=== PATIENT | male | born 1950 | race Caucasian/White ===

== ENCOUNTER → 2016-06-07 | Outpatient (CLI) | payer OTHER ==
[~2016-06-07] VITALS: Ht 177.8 cm; Wt 81.1 kg
[~2016-06-07] MED LIST: ASPI-435 PO; ASPI81TA28 PO; ENOX1INJ9 SQ; ERGO500011 PO; ERGO500037 PO; LORA-741 PO; LPR25 PO; METO25TA56 PO; OXYC1TAB3 PO; PANT40TA2 PO; POLY335019 PO; POLY335025 PO; PRED20TA PO; PRTI40 IV
[2016-06-07 13:23] VITALS: BP 138/89; PULSE 69; Ht 177.8 cm; Wt 81.1 kg
== END | disposition home or self-care (01) ==
LOC: C.NEUR 11:52
PROVIDERS: ATTEND Allergy & Immunology Allergy
DX: G47.61 Periodic limb movement disorder (principal); G47.33 Obstructive sleep apnea (adult) (pediatric)

== ENCOUNTER → 2016-09-01 | Outpatient (CLI) | payer OTHER ==
[~2016-09-01] MED LIST changes: -ASPI81TA28 PO; -ENOX1INJ9 SQ; -ERGO500011 PO; -PANT40TA2 PO; -POLY335019 PO; +PRT/40 PO; -PRTI40 IV
[2016-09-01 12:51] LABS: BASO % 0.4 %; BASO ABS # 0.04 K/uL (0-0.2); COMPLETE YES; EOS % 1.5 %; HEMATOCRIT 46.6 % (42-52); IG% 0.6 %; LYMPH % 24.1 %; LYMPH ABS # 2.72 K/uL (1.2-3.4); MEAN CELL VOLUME 93.6 fL (80-100); MEAN CORPUSCULAR HEMOGLOBIN 31.3 pg (25-34); MEAN CORPUSCULAR HGB CONC 33.5 g/dl (32-36); MEAN PLATELET VOLUME 11.2 fL (7.4-10.4); MONO % 12.3 %; NEUT % 61.1 %; PLATELET COUNT 172 K/uL (130-400); RED BLOOD COUNT 4.98 M/uL (4.7-6.1)
[2016-09-01 13:00] LABS: ESTIMATED AVERAGE GLUCOSE 169 mg/dl; HA1C FLAG Normal (Normal)
[2016-09-01 13:03] LABS: URINE APPEARANCE CLEAR (CLEAR); URINE BILIRUBIN NEG (NEG); URINE COLOR YELLOW; URINE NITRITE NEG (NEG); URINE SPECIFIC GRAVITY 1.022 (1.000-1.030); UROBILINOGEN NEG (NEG)
[2016-09-01 13:04] LABS: BLOOD UREA NITROGEN 25 mg/dl (7-18); BUN/CREATININE RATIO 13.9 (10-20); CALCIUM 9.1 mg/dl (8.5-10.1); CARBON DIOXIDE 27 mmol/L (21-32); CHLORIDE 106 mmol/L (98-107); GLUCOSE 112 mg/dl (70-99); GLUCOSE,FASTING 112 mg/dl (70-99); POTASSIUM 3.9 mmol/L (3.5-5.1); SODIUM 142 mmol/L (136-145)
[2016-09-01 13:06] LABS: PHOSPHORUS 3.2 mg/dl (2.5-4.9)
[2016-09-01 13:10] LABS: MANUAL MICROSCOPIC REQUIRED? NO; REVIEW REQ? YES
[2016-09-01 13:32] LABS: URINE PROTIEN/CREAT RATIO 0.3 (0-0.2); URINE TOTAL PROTEIN 67.3 mg/dl (0-11.9)
== END | disposition home or self-care (01) ==
LOC: C.LAB1850 10:24
PROVIDERS: ATTEND Internal Medicine Rheumatology
DX: I77.6 Arteritis, unspecified (principal); R73.9 Hyperglycemia, unspecified; I10 Essential (primary) hypertension; E55.9 Vitamin D deficiency, unspecified; N18.3 Chronic kidney disease, stage 3 (moderate); I71.6 Thoracoabdominal aortic aneurysm, without rupture; D89.9 Disorder involving the immune mechanism, unspecified; Z79.52 Long term (current) use of systemic steroids

== ENCOUNTER → 2016-12-13 | Outpatient (CLI) | payer OTHER ==
[~2016-12-13] VITALS: Ht 177.8 cm; Wt 86.6 kg
[2016-12-13 13:23] VITALS: BP 165/85; PULSE 69; Ht 177.8 cm; Wt 86.6 kg
== END | disposition home or self-care (01) ==
LOC: C.NEUR 12:04
PROVIDERS: ATTEND Internal Medicine Pulmonary Disease
DX: G47.61 Periodic limb movement disorder (principal); G47.33 Obstructive sleep apnea (adult) (pediatric); I71.2 Thoracic aortic aneurysm, without rupture

== ENCOUNTER → 2017-01-20 | Outpatient (CLI) | payer OTHER ==
[2017-01-20 12:44] LABS: HEMATOCRIT 49.3 % (42-52); MEAN CELL VOLUME 89.5 fL (80-100); MEAN CORPUSCULAR HEMOGLOBIN 29.6 pg (25-34); MEAN CORPUSCULAR HGB CONC 33.1 g/dl (32-36); MEAN PLATELET VOLUME 10.9 fL (7.4-10.4); PLATELET COUNT 155 K/uL (130-400); RED BLOOD COUNT 5.51 M/uL (4.7-6.1); WHITE BLOOD COUNT 13.17 K/uL (4.8-10.8)
[2017-01-20 12:53] LABS: URINE APPEARANCE CLEAR (CLEAR); URINE BILIRUBIN NEG (NEG); URINE COLOR DK YELLOW; URINE NITRITE NEG (NEG); URINE PH 5.5 (4.5-7.5); URINE SPECIFIC GRAVITY 1.027 (1.000-1.030); UROBILINOGEN NEG (NEG)
[2017-01-20 13:06] LABS: ALT/SGPT 44 U/L (12-78); AST/SGOT 24 U/L (15-37); BLOOD UREA NITROGEN 27 mg/dl (7-18); BUN/CREATININE RATIO 12.5 (10-20); CALCIUM 9.2 mg/dl (8.5-10.1); CARBON DIOXIDE 26 mmol/L (21-32); CHLORIDE 103 mmol/L (98-107); GLUCOSE 263 mg/dl (70-99); POTASSIUM 4.2 mmol/L (3.5-5.1); SODIUM 138 mmol/L (136-145)
[2017-01-20 13:09] LABS: ALKALINE PHOSPHATASE 89 U/L (45-117)
[2017-01-20 13:10] LABS: URINE PROTIEN/CREAT RATIO 0.4 (0-0.2); URINE TOTAL PROTEIN 77.1 mg/dl (0-11.9)
[2017-01-20 13:20] LABS: MANUAL MICROSCOPIC REQUIRED? NO; REVIEW REQ? YES
== END | disposition home or self-care (01) ==
LOC: C.LAB 11:23
PROVIDERS: ATTEND Internal Medicine Nephrology
DX: I12.9 Hypertensive chronic kidney disease with stage 1 through stage 4 chronic kidney disease, or unspecified chronic kidney disease (principal); N20.0 Calculus of kidney; N18.3 Chronic kidney disease, stage 3 (moderate); I77.6 Arteritis, unspecified; E55.9 Vitamin D deficiency, unspecified

== ENCOUNTER → 2017-02-10 | Outpatient (CLI) | payer OTHER ==
[2017-02-10 09:34] LABS: HEMATOCRIT 50.5 % (42-52); MEAN CELL VOLUME 90.2 fL (80-100); MEAN CORPUSCULAR HEMOGLOBIN 29.6 pg (25-34); MEAN CORPUSCULAR HGB CONC 32.9 g/dl (32-36); MEAN PLATELET VOLUME 10.8 fL (7.4-10.4); PLATELET COUNT 157 K/uL (130-400); WHITE BLOOD COUNT 10.32 K/uL (4.8-10.8)
[2017-02-10 09:54] LABS: ALT/SGPT 44 U/L (12-78); AST/SGOT 16 U/L (15-37); BLOOD UREA NITROGEN 29 mg/dl (7-18); BUN/CREATININE RATIO 14.3 (10-20); CALCIUM 9.3 mg/dl (8.5-10.1); CARBON DIOXIDE 32 mmol/L (21-32); CHLORIDE 106 mmol/L (98-107); GLUCOSE 131 mg/dl (70-99); POTASSIUM 4.1 mmol/L (3.5-5.1); SODIUM 140 mmol/L (136-145)
[2017-02-10 10:01] LABS: ALKALINE PHOSPHATASE 73 U/L (45-117); CHOLESTEROL 160 mg/dl (0-200); CHOLESTEROL/HDL RATIO 3.1; HDL CHOLESTEROL 51 mg/dl; LDL CHOLESTEROL CALCULATED 68 mg/dl; TRIGLYCERIDES 207 mg/dl (0-150); VERY LOW DENSITY LIPOPROT CALC 41 mg/dl
== END | disposition home or self-care (01) ==
LOC: C.LAB 07:06
PROVIDERS: ATTEND Internal Medicine Nephrology
DX: I12.9 Hypertensive chronic kidney disease with stage 1 through stage 4 chronic kidney disease, or unspecified chronic kidney disease (principal); E78.5 Hyperlipidemia, unspecified; I71.2 Thoracic aortic aneurysm, without rupture; N18.3 Chronic kidney disease, stage 3 (moderate); I77.6 Arteritis, unspecified

== ENCOUNTER → 2017-06-02 | Outpatient (CLI) | payer OTHER ==
[~2017-06-02] MED LIST changes: -ASPI-435 PO; +ASPI81TA28 PO; +ATOR-54 PO; +ERGO500011 PO; -ERGO500037 PO; +ESCI10TA17 PO; -LPR25 PO; +METO50TA16 PO; -OXYC1TAB3 PO; +POLY335019 PO; -POLY335025 PO; -PRED20TA PO; +PRLSR20 PO; -PRT/40 PO; +REGADENOSON 0.4 MG/5 ML SYR ONE; +RTXI100 IV
--- NOTE | 2017-06-02 19:28 | Myocardial Perfusion Study ---
Myocardial Perfusion Study Rpt Myocardial Perfusion Study Rpt Date of Service 06/02/2017 Myocardial Perfusion Study Rpt Procedure: 1. Myocardial perfusion study performed in multiple views/images 2. Lexiscan pharmacologic stress ECG Indications: 1. Dyspnea with exertion 2. Prior myocardial infarction Consent: Informed written consent was obtained prior to the procedure. Ordering physician: Dr. Levy Procedural details: For the stress portion of the study, Lexiscan 0.4 mg was intravenously administered followed by a saline flush. This was followed by 32.8 mCi of technetium 99m Cardiolite, injected at 11:20 a.m. on 06/02/2017. 30 minutes following the injection, imaging of the heart was performed in multiple projections. For the rest portion of the study, 11 mCi technetium 99m Cardiolite was injected intravenously at 9:30 a.m. on 06/02/2017. 1 hour following the injection, imaging of the heart was performed in the same projections. Lexiscan stress ECG: Resting ECG demonstrated: Sinus bradycardia at 53 bpm. Septal infarct. Maximum heart rate: 78 bpm Resting blood pressure: 164/89 mmHg Maximum blood pressure: 167/93 mmHg Maximal, age-predicted heart rate: 50 % Significant ST changes: None Arrhythmia: None Symptoms: Shortness of breath Findings: Rotating raw imaging demonstrated no significant lung uptake. There is no significant motion artifact. Heart size appeared normal. Myocardial perfusion demonstrated a small area of moderately to severely reduced uptake involving the base to mid lateral wall and base to mid inferolateral wall segments. There was minimal reversibility at the basal inferolateral wall but more significant reversibility in the mid segment and base to mid lateral. This suggests small basal inferolateral infarct with ischemia of the mid inferolateral and base to mid lateral wall segments. Ejection fraction: 45 % Wall motion: Stress wall motion suggests hypo to akinesis involving the base to mid lateral and base to mid inferolateral wall segments. Otherwise, normal wall motion. No significant transient ischemic dilation. Impression: 1. Abnormal myocardial perfusion study suggesting small basal inferolateral infarct with lokesh-infarct ischemia and ischemia involving the mid inferolateral wall segment and base to mid lateral (circumflex territory). 2. Mildly reduced LV systolic function. EF 45%. 3. Stress wall motion suggests hypo to akinesis of the base to mid lateral and inferolateral wall segments. 4. Lexiscan induced shortness of breath. 5. Nondiagnostic Lexiscan ECG. 6. Mr. and Mrs. Rufino were called personally and notified of the above findings. He denies angina or exertional dyspnea. Recommend continuation of medical therapy. Call immediately for symptoms concerning for ischemic heart disease.
== END | disposition home or self-care (01) ==
LOC: C.NUCL 09:05
PROVIDERS: ATTEND Internal Medicine Cardiovascular Disease
DX: I71.2 Thoracic aortic aneurysm, without rupture (principal); R06.09 Other forms of dyspnea; E78.5 Hyperlipidemia, unspecified; I10 Essential (primary) hypertension; I25.2 Old myocardial infarction

== ENCOUNTER → 2017-06-13 | Outpatient (CLI) | payer OTHER ==
[~2017-06-13] VITALS: Ht 177.8 cm; Wt 92.3 kg
[~2017-06-13] MED LIST changes: -ATOR-54 PO; -ESCI10TA17 PO; -METO50TA16 PO; -PRLSR20 PO; -REGADENOSON 0.4 MG/5 ML SYR ONE; -RTXI100 IV
[2017-06-13 13:50] VITALS: BP 134/76; PULSE 56; Ht 177.8 cm; Wt 92.3 kg
== END | disposition home or self-care (01) ==
LOC: C.NEUR 11:55
PROVIDERS: ATTEND Internal Medicine Pulmonary Disease
DX: G47.61 Periodic limb movement disorder (principal); I77.6 Arteritis, unspecified; G47.33 Obstructive sleep apnea (adult) (pediatric)

== ENCOUNTER → 2017-06-22 | Outpatient (CLI) | payer OTHER ==
[2017-06-22 10:14] LABS: HEMATOCRIT 47.9 % (42-52); HEMOGLOBIN 16.2 g/dL (14.0-18.0); MEAN CELL VOLUME 88.7 fL (80-100); MEAN CORPUSCULAR HGB CONC 33.8 g/dl (32-36); MEAN PLATELET VOLUME 11.1 fL (7.4-10.4); PLATELET COUNT 159 K/uL (130-400); RED CELL DISTRIBUTION WIDTH CV 14.9 % (11.5-14.5); RED CELL DISTRIBUTION WIDTH SD 48.2 fL (36.4-46.3); WHITE BLOOD COUNT 10.54 K/uL (4.8-10.8)
[2017-06-22 10:45] LABS: ALBUMIN 3.7 gm/dl (3.4-5.0); BLOOD UREA NITROGEN 30 mg/dl (7-18); CALCIUM 9.1 mg/dl (8.5-10.1); CARBON DIOXIDE 25 mmol/L (21-32); CREATININE 1.87 mg/dl (0.60-1.40); GLUCOSE 103 mg/dl (70-99); SODIUM 140 mmol/L (136-145)
[2017-06-22 10:46] LABS: PHOSPHORUS 3.6 mg/dl (2.5-4.9)
== END | disposition home or self-care (01) ==
LOC: C.LAB1850 09:06
PROVIDERS: ATTEND Internal Medicine Nephrology
DX: I12.9 Hypertensive chronic kidney disease with stage 1 through stage 4 chronic kidney disease, or unspecified chronic kidney disease (principal); N18.3 Chronic kidney disease, stage 3 (moderate); E55.9 Vitamin D deficiency, unspecified; I77.6 Arteritis, unspecified

== ENCOUNTER → 2017-08-02 | Day surgery (SDC) | payer OTHER ==
[2017-07-31 08:37] VITALS: Ht 177.8 cm; Wt 92.3 kg
[~2017-08-02] VITALS: Ht 177.8 cm; Wt 92.3 kg
[~2017-08-02] MED LIST changes: +500ML BSS 0.3ML EPI 1:1000PF IRRIG ONE; +ACETAMINOPHEN 325 MG TAB PO PRN; +AMVISC PLUS 0.8ML SYRINGE INT OCU ONE; +ATOR-54 PO; +ATROPINE SULFATE 0.1 MG/ML 5ML SYR IV PRN; +BSS FLUSH ONE; +ENDOCOAT 0.85ML SYRINGE INT OCU ONE; +ESCI10TA17 PO; +EpHEDrine SULFATE INJ 50 MG/ML AMP IV PRN; +EpINEphrine INJ 1MG/ML AMP 1 MG/ML AMP ONE; +LACTATED RINGER'S 1000ML 500 ML IV SCH; +LIDOCAINE 4% OP SOLN DROP CHARGE ONE; +LIDOCAINE 4% OP SOLN DROP CHARGE OPR SCH; +LIDOCAINE HCL 1% MPF 2 ML VIAL ONE; -LORA-741 PO; -METO25TA56 PO; +METO50TA16 PO; +MIDAZOLAM HCL 1 MG/ML 2ML VIAL ONE; +MIX: 4ML BSS 1ML EPI 1:1000 PF TOP ONE; +MOXIFLOXACIN OPH SOLN PER DROP CHARGE ONE; +NURSING VERBAL MED ORDER ONE; +PHENYLEPHRINE HCL 10% OP SOLN PER DROP CHARGE OPR SCH; -POLY335019 PO; +POVIDONE-IODINE OP SOLN 30 ML BTL ONE; +PRLSR20 PO; +PROPARACAINE 0.5% OP SOLN PER DROP CHARGE OPR SCH; +RTXI100 IV; +TOBRAMYCIN/DEXAMETHASONE OPH OINT PER APPLN CHARGE ONE
[2017-08-02] MEDS: TROPICAMIDE 1% OP SOLN PER DROP CHARGE OPR SCH ×3 (09:45→09:55)
[2017-08-02] MEDS: CYCLOPENTOLATE HCL 1% OP SOLN PER DROP CHARGE OPR SCH ×3 (09:46→09:56)
--- NOTE | 2017-08-02 09:46 | History & Physical Bridge - SC ---
H&P Re-Evaluation Bridge Note: I have examined the patient, reviewed the History & Physical and in the interval since the performance of the History & Physical I have noted the following changes of clinical significance: No changes noted
[2017-08-02] MEDS: MOXIFLOXACIN OPH SOLN PER DROP CHARGE OPR SCH ×3 (09:47→09:57)
[2017-08-02] MEDS: PHENYLEPHRINE HCL 10% OP SOLN PER DROP CHARGE OPR SCH ×2 (09:49→09:54)
--- NOTE | 2017-08-02 10:47 | [facility] Post Operative Brief Note ---
Immediate Operative Summary Operative Date Aug 02, 2017. Pre-Operative Diagnosis Right Eye Cataract Post-Operative Diagnosis Same Procedure(s) Performed Right Eye Cataract Phacoemulsification With Intraocular Lens Implant Surgeon Dr. Cisneros Retail Performance Coach Surgeon(s) None Estimated Blood Loss None Findings Consistent with Post-Op Diagnosis Specimens None Anesthesia Type MAC Complication(s) none Disposition Accompanied Pt To Recovery: no Disposition:
--- NOTE | 2017-08-02 10:48 | [facility] Operative Report ---
Operative Report Date of Service Aug 02, 2017. Operative Report DATE OF OPERATION: 08/02/17 PREOPERATIVE DIAGNOSIS: Senile nuclear cataract, right eye POSTOPERATIVE DIAGNOSIS: Senile nuclear cataract, right eye PROCEDURE PERFORMED: Phacoemulsification with intraocular lens implantation, right eye SURGEON: Dr. Arash Cisneros ANESTHESIA: Topical with 1% intracameral lidocaine and monitored anesthesia care COMPLICATIONS: None DESCRIPTION OF PROCEDURE: After positively identifying the patient both verbally and by wristband in the preoperative area, the right eye was marked as the operative eye. The patient was then brought back to the operating room by the anesthesia and nursing staff where they were given a drop of Lidocaine and betadine into the operative eye. They were then sterilely prepped and draped in the standard fashion typical for ophthalmic surgery. Steri-strips were placed along the upper eyelids to keep the lashes back, and a lid speculum was placed into the operative eye. At this point, a documented time out was performed with members of the ophthalmology, nursing, and anesthesia staffs all agreeing upon the correct patient, correct location for surgery, correct procedure, and correct type and power of intraocular lens to be implanted. The microscope was then swung into position. First, a paracentesis wound was made using a sideport blade. Then, in sequence, 1% preservative-free lidocaine followed by Endocoat viscoelastic was injected into the anterior chamber. Next , the main incision was made with a keratome blade in triplanar fashion. A sharp cystotome was introduced into the eye and used to create a tear in the anterior capsule, which was directed into a continuous curvilinear capsulorrhexis using Utrata forceps. Hydrodissection was then performed with BSS on a flat-tip cannula. Next, the phacoemulsification handpiece was introduced into the eye and used to remove the nucleus in a [id number] fashion. This was done without complication and then the irrigation-aspiration handpiece was introduced into the eye and used to remove all remaining cortical and epinuclear material. Amvisc was then injected into the anterior chamber as well as into the capsular bag and using the lens injector system, an MX60 16.0 D lens, serial number [id number], and expiration date 04/2018 was injected into the capsular bag and rotated into the correct position. Next, the irrigation- aspiration handpiece was used to remove all remaining Amvisc. BSS was used to hydrate the main wound, and then BSS was injected into the paracentesis site to reach physiologic pressure and then the main wound was checked and found to be watertight. The patient was given drops of Vigamox and Tobradex ointment into the operative eye, and then the surrounding area was cleaned and dried. A clear plastic shield was placed over the eye and the patient was then sat up and taken from the operating room by the anesthesia staff having tolerated the procedure well and suffering no complications. DISPOSITION: The patient was returned to the recovery room in stable condition. I attest to the content of the Intraoperative Record and any orders documented therein. Any exceptions are noted below.
--- NOTE | 2017-08-02 10:49 | Discharge Instructions-SurgCtr ---
Discharge Instructions Date of Service Aug 02, 2017. Visit Reason for Visit: Cataract Right Eye Discharge Discharge Diagnosis / Problem: right cataract Discharge Goals Goal(s): Decrease discomfort, Increase independence Activity Recommendations Activity Limitations: as noted below Anesthesia . Post Anesthesia Instructions: If you have had General Anesthesia or IV Sedation: * Do not drive today. * Resume driving when surgeon permits. * Do not make important decisions or sign legal documents today. * Call surgeon for: 1. Temperature elevations greater than 101 degrees F. 2. Uncontrollable pain. 3. Excessive bleeding. 4. Persistent nausea and vomiting. 5. Medication intolerance (nausea, vomiting or rash). * For nausea and vomiting use only clear liquids such as: tea, soda, bouillon until nausea subsides, then gradually increase diet as tolerated. * If you have any concerns or questions, call your surgeon's office. If physician is unavailable and it is an emergency, call 911 or go to the nearest emergency room. . Instructions / Follow-Up Instructions / Follow-Up ACTIVITY RECOMMENDATIONS: * Light activities. * You may walk outside, read, watch television. * You may notice redness on the white part of the eye and some blurry vision - this is normal. MEDICATIONS: Resume previous medications unless instructed otherwise by your surgeon. Start all eye drops at 1 pm today: * Eye drops (today): Prednisone - one drop in operative eye every 2 hours while awake Ofloxacin - one drop in operative eye every 2 hours while awake Prolensa - one drop in operative eye daily SPECIAL CARE INSTRUCTIONS: * Tape plastic shield over eye to sleep at night. Call your doctor at with any concerns or problems. FOLLOW UP VISIT: Follow-up with Dr Cisneros at [facility] as scheduled. Diet Recommendations Home Diet: no limitations Procedures Procedures Performed: Right Eye Cataract Phacoemulsification With Intraocular Lens Implant Pending Studies Studies pending at discharge: no Medical Emergencies . Who to Call and When: Medical Emergencies: If at any time you feel your situation is an emergency, please call 911 immediately. . Non-Emergent Contact Non-Emergency issues call your: Surgeon . . "Provider Documentation" section prepared by Arash Cisneros. .
[2017-08-02 10:50] VITALS: TEMP 36.2
--- NOTE | 2017-08-02 11:19 | Anesthesia Progress Nt - [facility] ---
Anesthesia Post Op Note Date & Time Aug 02, 2017 at 11:18 Vital Signs Pain Intensity: 0 Vital Signs Past 12 Hours Date Time Temp Pulse Resp B/P (MAP) Pulse Ox O2 Delivery O2 Flow Rate FiO2 08/02/17 10:50 36.2 66 16 160/85 (110) 94 Room Air 08/02/17 09:35 36.5 61 18 124/73 (90) 93 Room Air Notes Mental Status: alert / awake / arousable, participated in evaluation Pt Amnestic to Procedure: Yes Nausea / Vomiting: adequately controlled Pain: adequately controlled Airway Patency, RR, SpO2: stable & adequate BP & HR: stable & adequate Hydration State: stable & adequate Anesthetic Complications: no major complications apparent
[2017-08-02 11:22] VITALS: BP 155/87; PULSE 56; O2SAT 95
== END | disposition home or self-care (01) ==
LOC: X.SURG 09:11
PROVIDERS: ATTEND Ophthalmology
DX: H25.11 Age-related nuclear cataract, right eye (principal); J44.9 Chronic obstructive pulmonary disease, unspecified; G47.33 Obstructive sleep apnea (adult) (pediatric); I25.2 Old myocardial infarction; I25.10 Atherosclerotic heart disease of native coronary artery without angina pectoris; K21.9 Gastro-esophageal reflux disease without esophagitis; I12.9 Hypertensive chronic kidney disease with stage 1 through stage 4 chronic kidney disease, or unspecified chronic kidney disease; N18.9 Chronic kidney disease, unspecified; E66.9 Obesity, unspecified; E78.00 Pure hypercholesterolemia, unspecified; Z85.828 Personal history of other malignant neoplasm of skin; Z86.73 Personal history of transient ischemic attack (TIA), and cerebral infarction without residual deficits

== ENCOUNTER → 2017-08-16 | Day surgery (SDC) | payer OTHER ==
[2017-08-11 10:55] VITALS: Ht 177.8 cm; Wt 92.3 kg
[~2017-08-16] VITALS: Ht 177.8 cm; Wt 92.3 kg
[~2017-08-16] MED LIST changes: -ATROPINE SULFATE 0.1 MG/ML 5ML SYR IV PRN; -EpHEDrine SULFATE INJ 50 MG/ML AMP IV PRN; +FENTANYL CITRATE INJ 50 MCG/1 ML 2 ML VIAL ONE; +LIDOCAINE 4% OP SOLN DROP CHARGE OPL SCH; -LIDOCAINE 4% OP SOLN DROP CHARGE OPR SCH; -NURSING VERBAL MED ORDER ONE; -PHENYLEPHRINE HCL 10% OP SOLN PER DROP CHARGE OPR SCH; +PROPARACAINE 0.5% OP SOLN PER DROP CHARGE OPL SCH; -PROPARACAINE 0.5% OP SOLN PER DROP CHARGE OPR SCH
[2017-08-16] MEDS: PHENYLEPHRINE HCL 2.5% OP SOLN PER DROP CHARGE OPL SCH ×3 (08:47→08:57)
[2017-08-16] MEDS: TROPICAMIDE 1% OP SOLN PER DROP CHARGE OPL SCH ×3 (08:48→08:58)
[2017-08-16] MEDS: CYCLOPENTOLATE HCL 1% OP SOLN PER DROP CHARGE OPL SCH ×3 (08:49→08:59)
[2017-08-16] MEDS: MOXIFLOXACIN OPH SOLN PER DROP CHARGE OPL SCH ×3 (08:50→09:00)
--- NOTE | 2017-08-16 09:58 | [facility] Post Operative Brief Note ---
Immediate Operative Summary Operative Date Aug 16, 2017. Pre-Operative Diagnosis Left Eye Cataract Post-Operative Diagnosis same Procedure(s) Performed Left Cataract Phacoemulsification With Intraocular Lens Implant Surgeon Dr. Julieth Cisneros Nanotechnology Engineering Technologist Surgeon(s) 0 Estimated Blood Loss 0 Findings Consistent with Post-Op Diagnosis Specimens none Anesthesia Type MAC Complication(s) none Disposition Accompanied Pt To Recovery: no Disposition:
--- NOTE | 2017-08-16 09:59 | [facility] Operative Report ---
Operative Report Date of Service Aug 16, 2017. Operative Report DATE OF OPERATION: 08/16/17 PREOPERATIVE DIAGNOSIS: Senile nuclear cataract, left eye POSTOPERATIVE DIAGNOSIS: Senile nuclear cataract, left eye PROCEDURE PERFORMED: Phacoemulsification with intraocular lens implantation, left eye SURGEON: Dr. Arash Cisneros ANESTHESIA: Topical with 1% intracameral lidocaine and monitored anesthesia care COMPLICATIONS: None DESCRIPTION OF PROCEDURE: After positively identifying the patient both verbally and by wristband in the preoperative area, the left eye was marked as the operative eye. The patient was then brought back to the operating room by the anesthesia and nursing staff where they were given a drop of Lidocaine and betadine into the operative eye. They were then sterilely prepped and draped in the standard fashion typical for ophthalmic surgery. Steri-strips were placed along the upper eyelids to keep the lashes back, and a lid speculum was placed into the operative eye. At this point, a documented time out was performed with members of the ophthalmology, nursing, and anesthesia staffs all agreeing upon the correct patient, correct location for surgery, correct procedure, and correct type and power of intraocular lens to be implanted. The microscope was then swung into position. First, a paracentesis wound was made using a sideport blade. Then, in sequence, 1% preservative-free lidocaine followed by Endocoat viscoelastic was injected into the anterior chamber. Next , the main incision was made with a keratome blade in triplanar fashion. A sharp cystotome was introduced into the eye and used to create a tear in the anterior capsule, which was directed into a continuous curvilinear capsulorrhexis using Utrata forceps. Hydrodissection was then performed with BSS on a flat-tip cannula. Next, the phacoemulsification handpiece was introduced into the eye and used to remove the nucleus in a [id number] fashion. This was done without complication and then the irrigation-aspiration handpiece was introduced into the eye and used to remove all remaining cortical and epinuclear material. Amvisc was then injected into the anterior chamber as well as into the capsular bag and using the lens injector system, an MX60 16.0 D lens, serial number [id number], and expiration date 12/2017 was injected into the capsular bag and rotated into the correct position. Next, the irrigation- aspiration handpiece was used to remove all remaining Amvisc. BSS was used to hydrate the main wound, and then BSS was injected into the paracentesis site to reach physiologic pressure and then the main wound was checked and found to be watertight. The patient was given drops of Vigamox and Tobradex ointment into the operative eye, and then the surrounding area was cleaned and dried. A clear plastic shield was placed over the eye and the patient was then sat up and taken from the operating room by the anesthesia staff having tolerated the procedure well and suffering no complications. DISPOSITION: The patient was returned to the recovery room in stable condition. I attest to the content of the Intraoperative Record and any orders documented therein. Any exceptions are noted below.
[2017-08-16 10:00] VITALS: TEMP 36.3
--- NOTE | 2017-08-16 10:00 | Discharge Instructions-SurgCtr ---
Discharge Instructions Date of Service Aug 16, 2017. Visit Reason for Visit: Cataract Left Eye Discharge Discharge Diagnosis / Problem: left cataract Discharge Goals Goal(s): Decrease discomfort, Improve function Activity Recommendations Activity Limitations: as noted below Anesthesia . Post Anesthesia Instructions: If you have had General Anesthesia or IV Sedation: * Do not drive today. * Resume driving when surgeon permits. * Do not make important decisions or sign legal documents today. * Call surgeon for: 1. Temperature elevations greater than 101 degrees F. 2. Uncontrollable pain. 3. Excessive bleeding. 4. Persistent nausea and vomiting. 5. Medication intolerance (nausea, vomiting or rash). * For nausea and vomiting use only clear liquids such as: tea, soda, bouillon until nausea subsides, then gradually increase diet as tolerated. * If you have any concerns or questions, call your surgeon's office. If physician is unavailable and it is an emergency, call 911 or go to the nearest emergency room. . Instructions / Follow-Up Instructions / Follow-Up ACTIVITY RECOMMENDATIONS: * Light activities. * You may walk outside, read, watch television. * You may notice redness on the white part of the eye and some blurry vision - this is normal. MEDICATIONS: Resume previous medications unless instructed otherwise by your surgeon. Start all eye drops at 12 pm today: * Eye drops (today): Prednisone - one drop in operative eye every 2 hours while awake Ofloxacin - one drop in operative eye every 2 hours while awake Prolensa - one drop in operative eye daily SPECIAL CARE INSTRUCTIONS: * Tape plastic shield over eye to sleep at night. Call your doctor at with any concerns or problems. FOLLOW UP VISIT: Follow-up with Dr Cisneros at [facility] as scheduled. Diet Recommendations Home Diet: no limitations Procedures Procedures Performed: Left Cataract Phacoemulsification With Intraocular Lens Implant Pending Studies Studies pending at discharge: no Medical Emergencies . Who to Call and When: Medical Emergencies: If at any time you feel your situation is an emergency, please call 911 immediately. . Non-Emergent Contact Non-Emergency issues call your: Surgeon . . "Provider Documentation" section prepared by Arash Cisneros. .
[2017-08-16 10:19] VITALS: BP 159/94; PULSE 63; O2SAT 95
--- NOTE | 2017-08-16 10:29 | Anesthesia Progress Nt - [facility] ---
Anesthesia Post Op Note Date & Time Aug 16, 2017 at 10:29 Vital Signs Pain Intensity: 0 Vital Signs Past 12 Hours Date Time Temp Pulse Resp B/P (MAP) Pulse Ox O2 Delivery O2 Flow Rate FiO2 08/16/17 10:19 63 16 159/94 (115) 95 Room Air 08/16/17 10:00 36.3 67 16 173/81 (111) 94 Room Air 08/16/17 08:36 36.6 72 16 142/78 (99) 94 Room Air Notes Mental Status: alert / awake / arousable, participated in evaluation Pt Amnestic to Procedure: Yes Nausea / Vomiting: adequately controlled Pain: adequately controlled Airway Patency, RR, SpO2: stable & adequate BP & HR: stable & adequate Hydration State: stable & adequate Anesthetic Complications: no major complications apparent
== END | disposition home or self-care (01) ==
LOC: X.SURG 08:16
PROVIDERS: ATTEND Ophthalmology
DX: H25.12 Age-related nuclear cataract, left eye (principal); I51.9 Heart disease, unspecified; I10 Essential (primary) hypertension; N28.9 Disorder of kidney and ureter, unspecified; E78.00 Pure hypercholesterolemia, unspecified; K21.9 Gastro-esophageal reflux disease without esophagitis; Z85.828 Personal history of other malignant neoplasm of skin; Z86.73 Personal history of transient ischemic attack (TIA), and cerebral infarction without residual deficits; Z79.82 Long term (current) use of aspirin; Z79.899 Other long term (current) drug therapy

== ENCOUNTER → 2017-10-11 | Outpatient (CLI) | payer OTHER ==
[~2017-10-11] MED LIST changes: -500ML BSS 0.3ML EPI 1:1000PF IRRIG ONE; -ACETAMINOPHEN 325 MG TAB PO PRN; -AMVISC PLUS 0.8ML SYRINGE INT OCU ONE; -BSS FLUSH ONE; -ENDOCOAT 0.85ML SYRINGE INT OCU ONE; -EpINEphrine INJ 1MG/ML AMP 1 MG/ML AMP ONE; -FENTANYL CITRATE INJ 50 MCG/1 ML 2 ML VIAL ONE; -LACTATED RINGER'S 1000ML 500 ML IV SCH; -LIDOCAINE 4% OP SOLN DROP CHARGE ONE; -LIDOCAINE 4% OP SOLN DROP CHARGE OPL SCH; -LIDOCAINE HCL 1% MPF 2 ML VIAL ONE; -MIDAZOLAM HCL 1 MG/ML 2ML VIAL ONE; -MIX: 4ML BSS 1ML EPI 1:1000 PF TOP ONE; -MOXIFLOXACIN OPH SOLN PER DROP CHARGE ONE; -POVIDONE-IODINE OP SOLN 30 ML BTL ONE; -PROPARACAINE 0.5% OP SOLN PER DROP CHARGE OPL SCH; -TOBRAMYCIN/DEXAMETHASONE OPH OINT PER APPLN CHARGE ONE
[2017-10-11 09:38] LABS: MEAN CELL VOLUME 87.6 fL (80-100); MEAN CORPUSCULAR HEMOGLOBIN 29.2 pg (25-34); MEAN CORPUSCULAR HGB CONC 33.3 g/dl (32-36); MEAN PLATELET VOLUME 10.6 fL (7.4-10.4); PLATELET COUNT 147 K/uL (130-400); RED CELL DISTRIBUTION WIDTH CV 14.7 % (11.5-14.5); RED CELL DISTRIBUTION WIDTH SD 46.7 fL (36.4-46.3); WHITE BLOOD COUNT 7.52 K/uL (4.8-10.8)
[2017-10-11 09:59] LABS: ALBUMIN 3.8 gm/dl (3.4-5.0); ALT/SGPT 28 U/L (12-78); AST/SGOT 17 U/L (15-37); BLOOD UREA NITROGEN 18 mg/dl (7-18); CALCIUM 8.9 mg/dl (8.5-10.1); CARBON DIOXIDE 28 mmol/L (21-32); CREATININE 1.98 mg/dl (0.60-1.40); GLUCOSE 127 mg/dl (70-99); POTASSIUM 4.7 mmol/L (3.5-5.1); SODIUM 138 mmol/L (136-145)
[2017-10-11 10:00] LABS: ALKALINE PHOSPHATASE 95 U/L (45-117); TOTAL PROTEIN 7.1 gm/dl (6.4-8.2)
== END | disposition home or self-care (01) ==
LOC: C.LAB 07:31
PROVIDERS: ATTEND Internal Medicine Nephrology
DX: I12.9 Hypertensive chronic kidney disease with stage 1 through stage 4 chronic kidney disease, or unspecified chronic kidney disease (principal); E55.9 Vitamin D deficiency, unspecified; N18.3 Chronic kidney disease, stage 3 (moderate); I77.6 Arteritis, unspecified

== ENCOUNTER 2020-01-19 15:03 | Inpatient (IN) ==
[2020-01-19] MEDS ORDERED: ACETAMINOPHEN 500 MG TAB PO STA (15:31)
[2020-01-19] MEDS ORDERED: LEVOFLOXACIN/D5W 750 MG/150 ML BAG IV STA (15:31)
[2020-01-19] MEDS ORDERED: cefTRIAXone SODIUM 1,000 MG/50 ML BAG IV STA (15:31)
[2020-01-19] MEDS ORDERED: SODIUM CHLORIDE 0.9% 1000ML 2,000 ML IV ONE (15:31)
--- NOTE | 2020-01-19 15:37 | Emergency Department Note ---
Impression & Plan Sepsis, Transaminitis, Ascending cholangitis ED Provider Note NAME: MAULIK SHAY AGE: 69 SEX: M : 1950 ARRIVES VIA: Walk-In INFORMANT: Patient, ED PROVIDER(S): Kg Wylie DO CHIEF COMPLAINT: Fever HPI: Patient is a 69-year-old male who presents the ER for fever. Majority of history obtained from . Patient started having abdominal pain yesterday in the epigastric region associated with dry heaving. Recently diagnosed with esophageal diverticulum as has been having trouble swallowing. Fever started today. Shortly thereafter he started to have some confusion. He has had diffuse body shaking/chills. He denies any cough or shortness of breath. Denies any dysuria urgency or frequency. Denies any headache or chest pain. No other ex acerbating or remitting factors. ROS: See above HPI for pertinent positives & negatives. A total of 10 systems reviewed and were otherwise negative. PAST MEDICAL HISTORY:See Below PAST SURGICAL HISTORY:See Below FAMILY HISTORY:See Below SOCIAL HISTORY:See Below HOME MEDICATIONS:See Below ALLERGIES:See Below VITALS:See Below PHYSICAL EXAMINATION: GENERAL: Sitting up in bed, alert, well appearing, well nourished, no distress, non-toxic EYE EXAM: normal conjunctiva. PERRL and EOM's grossly intact. OROPHARYNX: no exudate, no erythema, lips, buccal mucosa, and tongue normal and mucous membranes are moist NECK: supple, no nuchal rigidity, no adenopathy, non-tender LUNGS: Clear to auscultation. Normal chest wall mechanics HEART: no murmurs, S1 normal and S2 normal ABDOMEN: abdomen soft, non-tender, normo-active bowel sounds, no masses, no rebound or guarding. BACK: Back is symmetrical on inspection and there is no deformity, no midline tenderness, no CVA tenderness. SKIN: no rashes and no bruising UPPER EXTREMITIES: upper extremities are grossly normal. LOWER EXTREMITIES: No pitting edema. NEURO EXAM: Oriented to person and place but not year or month, cranial nerves II-XII grossly intact, normal speech, no gross weakness of arms, no gross weakness of legs. MEDICAL DECISION MAKING: Patient is A 69-year-old male who presents the ER confused febrile and tachycardic. IV was established blood work was obtained. He was having dry heaving and epigastric abdominal pain. was concerned for possible aspiration pneumonia. Labs were obtained and he was given broad-spectrum antibiotics including IV Rocephin and Levaquin as I also agreed that this may be secondary to an aspiration. Chest x-ray was unremarkable. CT abdomen pelvis showed no acute pathology. LFTs were significantly elevated as well as a bilirubin of 5. CBC showed a leukocytosis of 15 and hemoglobin of 17 which I favor secondary to dehydration. INR was unremarkable. Creatinine was consistent with previous at 1.9. Troponin was negative. UA was without infection. After the results of the blood work he was given IV Zosyn. Discussed with [facility] gastroenterology due to the elevated bilirubin and transaminitis. Concern for a sending cholangitis. Patient is tender in the e pigastric region. Discussed with the hospitalist. Patient was admitted and will likely go for ERCP tomorrow following GI evaluation. Triage Nursing notes reviewed. Prior medical records reviewed Vital Signs: reviewed and remarkable for febrile and tachy Differential diagnosis: Differential diagnosis includes etiologies such as sepsis, UTI, pneumonia, metabolic, electrolyte abnormalities, cardiac sources, intracerebral event, toxicologic, neurological, as well as others were entertained. ER treatment provided: See below Diagnostics interpreted by me: ECG: Sinus tachycardia rate of 105 Left axis No PVCs T wave flattening in aVL Normal QTC Cardiac Monitoring: An order was placed for continuous cardiac monitoring. The monitor shows a rate of 108 with Sinus rhythm. Laboratory studies: As stated above and show below. Imaging studies: CT abdomen pelvis shows no acute pathology. Portable AP upright 1 view of the chest shows no focal infiltrate Consultation(s): [facility] Discussed with [facility] hospitalist for admission ED COURSE: Procedures: none Critical Care: I have personally spent 32 minutes of critical care time in the direct management of this patient. This includes bedside care, interpretation of diagnostic studies, and testing, discussion with consultants, patient, and family members, and other required patient management activities. This 32 minutes is in excess of all separately billable procedures. 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 Maulik Jerome 02/03/16 " Aneurysm of thoracic aorta Anxiety Basal cell carcinoma (BCC) CAD (coronary artery disease) Chronic kidney disease, stage III (moderate) Dyslipidemia GERD (gastroesophageal reflux disease) History of empyema of pleura History of TIA (transient ischemic attack) Hypertension IgG4 related disease Nephrolithiasis Obstructive sleep apnea Intolerant to CPAP Old myocardial infarct Periodic limb movement disorder Spinal stenosis T2DM (type 2 diabetes mellitus) Vasculitis involving renal artery Vitamin D deficiency Surgical History (Updated 01/19/20 @ 18:52 by Suzan Figueroa PA-C) History of AAA (abdominal aortic aneurysm) repair s/p TEVAR 2016 for 8 cm thoracic aneurysm after prior open repair of 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 History of cholecystectomy 12/2018 History of colostomy History of colostomy reversal ileostomy reversal 10/2018 History of lung surgery Secondary to empyema History of partial colectomy "L hemicolectomy with colostomy 2* mesenteric ischemia s/p vascular surgery 02/03/16" History of thoracic aortic aneurysm repair S/P Mohs surgery for basal cell carcinoma Family History Father Diabetes Other Colorectal cancer Obstructive sleep apnea Social History Smoking Status: Former smoker Tobacco Type: Cigarettes Second Hand Exposure: No; Do You Dip or Chew Tobacco: No; Tobacco Cessation Education Requested by Patient: No Hx Alcohol Use: No Hx Substance Use: No Preferred Language: Welsh Communication Ability: Effective Beliefs That Will Affect Care: None marital status: Current Living Situation: Spouse current occupational status: retired Feels Safe at Home: Yes Safety Concerns: Feels Safe At This Time Allergies Allergies Allergy/AdvReac Type Severity Reaction Status Date / Time tramadol AdvReac Unknown HIVES Verified 01/19/20 16:35 Home Meds Home Medications Medication Instructions Recorded Confirmed acetaminophen 500 mg tablet 500 - 1,000 mg PO Q4H PRN 03/05/19 01/19/20 aspirin 81 mg tablet,delayed 81 mg PO DAILY tab 03/05/19 01/19/20 release hydroxyzine HCl 10 mg tablet 10 mg PO ONCE PRN tab 07/17/19 01/19/20 docusate sodium 100 mg PO DAILY PRN 01/19/20 01/19/20 omeprazole 20 mg PO DAILY 01/19/20 01/19/20 oxycodone 5 mg PO BID PRN 01/19/20 01/19/20 Previous Rx's Medication Instructions Recorded ergocalciferol (vitamin D2) 1,250 50,000 units PO MONTHLY #12 cap 05/06/19 mcg (50,000 unit) capsule clonazepam 1 mg tablet 1 mg PO HS PRN #30 tab 06/18/19 metoprolol succinate 25 mg 37.5 mg PO BID #270 tab 07/17/19 tablet,extended release 24 hr atorvastatin 20 mg tablet 10 mg PO DAILY #45 tab 12/27/19 Results & Data (ED) Vital Signs Vital Signs - 24 hr 01/19/20 15:18 01/19/20 15:45 01/19/20 16:00 Temperature 39.2 C H Temperature Source Oral Pulse Rate 116 H 114 H Pulse Rate from SpO2 Sensor 114 H Respiratory Rate 20 18 18 Respiratory Effort / Characteristics Non-Labored Spontaneous Non-Labored Spontaneous Blood Pressure 118/69 135/71 Blood Pressure Mean 85 107 Pulse Oximetry 91 96 96 Oxygen Delivery Method Room Air Room Air Room Air Sepsis Recent Fever Within 48 Hours Yes Sepsis New/Unexplained Change in Mental Status Yes Sepsis Action Taken by Nursing Physician Notified 01/19/20 16:04 01/19/20 16:25 01/19/20 16:30 Temperature Temperature Source Pulse Rate 114 H 111 H 109 H Pulse Rate from SpO2 Sensor 111 H Respiratory Rate 24 26 H 26 H Respiratory Effort / Characteristics Blood Pressure Blood Pressure Mean Pulse Oximetry 95 Oxygen Delivery Method Sepsis Recent Fever Within 48 Hours Sepsis New/Unexplained Change in Mental Status Sepsis Action Taken by Nursing 01/19/20 16:31 01/19/20 16:45 01/19/20 17:00 Temperature Temperature Source Pulse Rate 109 H 106 H 116 H Pulse Rate from SpO2 Sensor 109 H 106 H Respiratory Rate 25 H 20 20 Respiratory Effort / Characteristics Non-Labored Spontaneous Blood Pressure 122/77 110/72 Blood Pressure Mean 99 83 Pulse Oximetry 93 93 94 Oxygen Delivery Method Room Air Sepsis Recent Fever Within 48 Hours Sepsis New/Unexplained Change in Mental Status Sepsis Action Taken by Nursing 01/19/20 17:15 01/19/20 17:28 01/19/20 17:30 Temperature 37.9 C H Temperature Source Oral Pulse Rate 102 H 101 H Pulse Rate from SpO2 Sensor 101 H 101 H Respiratory Rate 24 20 Respiratory Effort / Characteristics Blood Pressure 112/64 118/70 Blood Pressure Mean 100 79 Pulse Oximetry 93 92 Oxygen Delivery Method Sepsis Recent Fever Within 48 Hours Sepsis New/Unexplained Change in Mental Status Sepsis Action Taken by Nursing 01/19/20 17:31 01/19/20 17:45 Temperature Temperature Source Pulse Rate 94 H Pulse Rate from SpO2 Sensor 94 H Respiratory Rate 18 24 Respiratory Effort / Characteristics Non-Labored Spontaneous Blood Pressure 110/63 Blood Pressure Mean 90 Pulse Oximetry 95 92 Oxygen Delivery Method Room Air Sepsis Recent Fever Within 48 Hours Sepsis New/Unexplained Change in Mental Status Sepsis Action Taken by Nursing Laboratory Data Result diagrams: 01/19/20 15:46 01/19/20 15:46 Lab Results 01/19/20 01/19/20 01/19/20 Range/Units 15:46 15:46 15:46 WBC 15.11 H (4.8-10.8) K/uL RBC 5.97 (4.7-6.1) M/uL Hgb 17.7 (14.0-18.0) g/dL POC Hgb (14.0-18.0) g/dl Hct 51.4 (42-52) % POC Hct (42-52) % MCV 86.1 (80-100) fL MCH 29.6 (25-34) pg MCHC 34.4 (32-36) g/dL RDW Std Deviation 45.2 (36.4-46.3) fL RDW Coeff of Justina 14.3 (11.5-14.5) % Plt Count 163 (130-400) K/uL MPV 10.7 H (7.4-10.4) fL Immature Gran % (Auto) 0.2 % Neut % (Auto) 87.2 % Lymph % (Auto) 4.6 % [place] % (Auto) 7.6 % Eos % (Auto) 0.3 % Baso % (Auto) 0.1 % Neut # (Auto) 13.18 H (1.4-6.5) K/uL Lymph # (Auto) 0.70 L (1.2-3.4) K/uL [place] # (Auto) 1.15 H (0.11-0.59) K/uL Eos # (Auto) 0.04 (0-0.5) K/uL Baso # (Auto) 0.01 (0-0.2) K/uL Immature Gran # (Auto) 0.03 H (0.00-0.02) K/uL PT 11.4 (9.0-12.0) Seconds INR 1.1 (0.9-1.1) APTT 22.6 (21.0-31.0) Seconds PTT Ratio 0.8 POC Sodium (135-144) mmol/L Sodium 137 (136-145) mmol/L POC Potassium (3.3-5.0) mmol/L Potassium 4.3 (3.5-5.1) mmol/L POC Chloride (101-112) mmol/L Chloride 106 (98-107) mmol/L Carbon Dioxide 23 (21-32) mmol/L POC Total CO2 (24-31) mmol/L Anion Gap 8.0 (3-11) POC Anion Gap (16-25) mmol/L POC BUN (7-18) mg/dl BUN 21 H (7-18) mg/dl Creatinine 1.97 H (0.6-1.4) mg/dl POC Creatinine (0.6-1.3) mg/dl Est Cr Clr Drug Dosing Not Reportable Est GFR ( Amer) 39.3 Est GFR (Non-Af Amer) 33.9 BUN/Creatinine Ratio 10.6 (10-20) Glucose 182 H (70-99) mg/dl POC Glucose (other) (70-99) mg/dl Lactate (0.4-2.0) mmol/L Calcium 9.1 (8.5-10.1) mg/dl POC Ioniz Calcium Damion (1.12-1.32) mmol/l Magnesium 1.8 (1.8-2.4) mg/dl Total Bilirubin 5.4 H (0.2-1) mg/dl AST 248 H (15-37) U/L ALT 164 H (12-78) U/L Alkaline Phosphatase 430 H (45-117) U/L Troponin I < 0.015 (0-0.045) ng/ml Total Protein 7.5 (6.4-8.2) gm/dl Albumin 3.6 (3.4-5.0) gm/dl Globulin 3.9 (2.5-4.0) gm/dl Albumin/Globulin Ratio 0.9 (0.9-2) Urine Color Urine Appearance (Clear) Urine pH (4.5-7.5) Ur Specific [place] (1.000-1.030) Urine Protein (Negative) Urine Glucose (UA) (Negative) Urine Ketones (Negative) Urine Blood (Negative) Urine Nitrite (Negative) Urine Bilirubin (Negative) Urine Urobilinogen (Negative) Ur Leukocyte Esterase (Negative) Urine RBC (0-4) /hpf Urine WBC (0-5) /hpf Ur Epithelial Cells (0-5) /lpf Urine Bacteria (Negative) Hyaline Casts (0-5) /lpf 01/19/20 01/19/20 01/19/20 Range/Units 15:46 15:53 17:00 WBC (4.8-10.8) K/uL RBC (4.7-6.1) M/uL Hgb (14.0-18.0) g/dL POC Hgb 18.7 H (14.0-18.0) g/dl Hct (42-52) % POC Hct 55 H (42-52) % MCV (80-100) fL MCH (25-34) pg MCHC (32-36) g/dL RDW Std Deviation (36.4-46.3) fL RDW Coeff of Justina (11.5-14.5) % Plt Count (130-400) K/uL MPV (7.4-10.4) fL Immature Gran % (Auto) % Neut % (Auto) % Lymph % (Auto) % [place] % (Auto) % Eos % (Auto) % Baso % (Auto) % Neut # (Auto) (1.4-6.5) K/uL Lymph # (Auto) (1.2-3.4) K/uL [place] # (Auto) (0.11-0.59) K/uL Eos # (Auto) (0-0.5) K/uL Baso # (Auto) (0-0.2) K/uL Immature Gran # (Auto) (0.00-0.02) K/uL PT (9.0-12.0) Seconds INR (0.9-1.1) APTT (21.0-31.0) Seconds PTT Ratio POC Sodium 137 (135-144) mmol/L Sodium (136-145) mmol/L POC Potassium 4.4 (3.3-5.0) mmol/L Potassium (3.5-5.1) mmol/L POC Chloride 102 (101-112) mmol/L Chloride (98-107) mmol/L Carbon Dioxide (21-32) mmol/L POC Total CO2 21 L (24-31) mmol/L Anion Gap (3-11) POC Anion Gap 20.0 (16-25) mmol/L POC BUN 23 H (7-18) mg/dl BUN (7-18) mg/dl Creatinine (0.6-1.4) mg/dl POC Creatinine 1.9 H (0.6-1.3) mg/dl Est Cr Clr Drug Dosing Est GFR ( Amer) Est GFR (Non-Af Amer) BUN/Creatinine Ratio (10-20) Glucose (70-99) mg/dl POC Glucose (other) 189 H (70-99) mg/dl Lactate 2.0 (0.4-2.0) mmol/L Calcium (8.5-10.1) mg/dl POC Ioniz Calcium Damion 1.14 (1.12-1.32) mmol/l Magnesium (1.8-2.4) mg/dl Total Bilirubin (0.2-1) mg/dl AST (15-37) U/L ALT (12-78) U/L Alkaline Phosphatase (45-117) U/L Troponin I (0-0.045) ng/ml Total Protein (6.4-8.2) gm/dl Albumin (3.4-5.0) gm/dl Globulin (2.5-4.0) gm/dl Albumin/Globulin Ratio (0.9-2) Urine Color Pippa Urine Appearance Clear (Clear) Urine pH 6.5 (4.5-7.5) Ur Specific [place] 1.015 (1.000-1.030) Urine Protein 1+ H (Negative) Urine Glucose (UA) Negative (Negative) Urine Ketones 2+ H (Negative) Urine Blood Trace H (Negative) Urine Nitrite Negative (Negative) Urine Bilirubin 2+ H (Negative) Urine Urobilinogen Positive H (Negative) Ur Leukocyte Esterase Negative (Negative) Urine RBC 0-4 (0-4) /hpf Urine WBC 0-5 (0-5) /hpf Ur Epithelial Cells 0-5 (0-5) /lpf Urine Bacteria Negative (Negative) Hyaline Casts 0-5 (0-5) /lpf Administered Medications Heparin Sodium (Porcine) (Heparin Sod 5,000 Unit/0.5 Ml Vial) 5,000 units SQ Q8 NEDA Stop: 02/18/20 21:59 Last Admin: 01/19/20 20:14 Dose: 5,000 units Documented by: [id number] Cosigned by: [id number] Sodium Chloride (Nss 1000ml) 1,000 mls @ 100 mls/hr IV .Q10H NEDA Stop: 02/18/20 18:47 Last Admin: 01/19/20 19:57 Dose: 100 mls/hr Documented by: [id number] Piperacillin Sod/Tazobactam (Sod 3.375 gm/ Dextrose) 115 mls @ 28.75 mls/hr IV Q8H [facility]; Protocol Stop: 01/29/20 21:59 Last Admin: 01/19/20 20:11 Dose: 28.8 mls/hr Documented by: [id number] Insulin Aspart (Insulin Aspart 100 Units/Ml 3 Ml Pen) 0 units SC ACHS NEDA Stop: 02/18/20 20:59 Last Admin: 01/19/20 20:13 Dose: 3 units Documented by: [id number] Cosigned by: [id number] Insulin Glargine (Insulin Glargine Solostar 100 Units/Ml 3 Ml Pen) 0 - 5 units SC BID NEDA Stop: 02/18/20 20:59 Last Admin: 01/19/20 20:14 Dose: 5 units Documented by: [id number] Cosigned by: [id number] Metoprolol Succinate (Metoprolol Succ 25mg Ext Rel Tab) 37.5 mg PO BID NEDA Stop: 02/18/20 20:59 Last Admin: 01/19/20 20:15 Dose: 37.5 mg Documented by: [id number] Discontinued Medications Acetaminophen (Acetaminophen 500 Mg Tab) 1,000 mg PO NOW STA Stop: 01/19/20 15:32 Last Admin: 01/19/20 16:30 Dose: 1,000 mg Documented by: [id number] Levofloxacin/Dextrose (Levaquin/D5w) 750 mg in 150 mls @ 100 mls/hr IV NOW STA Stop: 01/19/20 17:00 Last Infusion: 01/19/20 18:12 Dose: 0 mls/hr Documented by: [id number] Admin: 01/19/20 16:00 Dose: 100 mls/hr Documented by: [id number] Ceftriaxone Sodium (Rocephin) 1,000 mg in 50 mls @ 100 mls/hr IV NOW STA Stop: 01/19/20 16:00 Last Infusion: 01/19/20 17:10 Dose: 0 mls/hr Documented by: [id number] Admin: 01/19/20 16:00 Dose: 100 mls/hr Documented by: [id number] Sodium Chloride (Nss 1000ml) 2,000 mls @ 999 mls/hr IV .Q2H1M ONE Stop: 01/19/20 17:31 Last Infusion: 01/19/20 18:12 Dose: 0 mls/hr Documented by: [id number] Admin: 01/19/20 16:00 Dose: 999 mls/hr Documented by: [id number] Piperacillin Sod/Tazobactam Sod (Zosyn) 4.5 gm in 120 mls @ 240 mls/hr IV NOW ONE Stop: 01/19/20 17:42 Last Infusion: 01/19/20 18:12 Dose: 0 mls/hr Documented by: [id number] Admin: 01/19/20 17:26 Dose: 240 mls/hr Documented by: [id number] Sodium Chloride (Nss 1000ml) 500 mls @ 999 mls/hr IV .Q31M ONE Stop: 01/19/20 18:20 Last Admin: 01/19/20 20:05 Dose: Not Given Documented by: [id number] Discharge Plan Visit Data Chief Complaint: Fever Stated Complaint: FEVERS, THROAT PROBLEMS ED Provider: Kg Wylie Discharge Problem: Sepsis, Transaminitis, Ascending cholangitis Patient Disposition: Admitted As Inpatient Discharge Instructions Interventions: ED Discharge Assessment Last Done: 01/19/20 18:09 Discharge Problem: Sepsis Qualifiers: Sepsis type: sepsis due to unspecified organism Sepsis acute organ dysfunction status: unspecified Qualified Code(s): A41.9 - Sepsis, unspecified organism
[2020-01-19 15:56] LABS: Basophils # (auto) 0.01 K/uL (0-0.2); Basophils % (auto) 0.1 %; Eosinophils # (auto) 0.04 K/uL (0-0.5); Eosinophils % (auto) 0.3 %; Hematocrit (blood only) 51.4 % (42-52); Hemoglobin 17.7 g/dL (14.0-18.0); Immature Granulocytes # (auto) 0.03 K/uL (0.00-0.02); Immature Granulocytes % (auto) 0.2 %; Lymphocytes % (auto) 4.6 %; Mean Corpuscular Hemoglobin 29.6 pg (25-34); Mean Corpuscular Hgb Conc 34.4 g/dL (32-36); Mean Corpuscular Volume 86.1 fL (80-100); Mean Platelet Volume 10.7 fL (7.4-10.4); Monocytes # (auto) 1.15 K/uL (0.11-0.59); Monocytes % (auto) 7.6 %; Neutrophils # (auto) 13.18 K/uL (1.4-6.5); Neutrophils % (auto) 87.2 %; Platelet Count 163 K/uL (130-400); RDW Coefficient of Variation 14.3 % (11.5-14.5); RDW Standard Deviation 45.2 fL (36.4-46.3); Red Blood Count 5.97 M/uL (4.7-6.1); White Blood Count 15.11 K/uL (4.8-10.8)
[2020-01-19 16:06] LABS: iSTAT Creatinine 1.9 mg/dl (0.6-1.3); iSTAT Hemoglobin 18.7 g/dl (14.0-18.0); iSTAT Ionized Calcium 1.14 mmol/l (1.12-1.32); iSTAT Potassium 4.4 mmol/L (3.3-5.0)
[2020-01-19 16:07] LABS: INR 1.1 (0.9-1.1); Partial Thromboplastin Ratio 0.8; Partial Thromboplastin Time 22.6 Seconds (21.0-31.0); Prothrombin Time 11.4 Seconds (9.0-12.0)
[2020-01-19 16:18] LABS: Alanine Aminotransferase 164 U/L (12-78); Albumin Level 3.6 gm/dl (3.4-5.0); Aspartate Aminotransferase 248 U/L (15-37); BUN Creatinine Ratio 10.6 (10-20); Blood Urea Nitrogen 21 mg/dl (7-18); Calcium 9.1 mg/dl (8.5-10.1); Carbon Dioxide 23 mmol/L (21-32); Chloride 106 mmol/L (98-107); Est GFR (African American) 39.3; Est GFR (Non-African American) 33.9; Glucose 182 mg/dl (70-99); Magnesium 1.8 mg/dl (1.8-2.4); Potassium 4.3 mmol/L (3.5-5.1); Sodium 137 mmol/L (136-145)
[2020-01-19 16:20] LABS: Albumin Globulin Ratio 0.9 (0.9-2); Alkaline Phosphatase 430 U/L (45-117); Bilirubin,Total 5.4 mg/dl (0.2-1); Globulin 3.9 gm/dl (2.5-4.0); Total Protein 7.5 gm/dl (6.4-8.2); Troponin I < 0.015 ng/ml (0-0.045)
--- NOTE | 2020-01-19 16:22 | XRay Report ---
XR chest 1V portable HISTORY: 69 years-old Male SEPSIS acute sepsis COMPARISON: Upper GI series 2019, CT abdomen and pelvis of same day TECHNIQUE: Portable AP view of the chest FINDINGS: Cardiac silhouette is enlarged. Aortic endograft. No pneumothorax, large pleural effusion or overt pu lmonary edema. Mild chronic interstitial coarsening. There is retained enteric contrast within a dila katt portion of what appears to be the esophagus. Degenerative changes of the shoulders and spine., IMPRESSION: 1. Cardiomegaly without acute process. 2. Retained enteric contrast from recent upper GI series with and a focally dilated portion of the mi d to distal esophagus, possibly reflective of an esophageal diverticulum. ACT 112: Negative or not required by law. The above report was generated using voice recognition software. It may contain grammatical, syntax o r spelling errors. Electronically signed by: Nicholas Vivar M.D. 01/19/2020 4:21 PM
--- NOTE | 2020-01-19 17:00 | CT Scan Report ---
ABDOMEN AND PELVIS CT WITHOUT CONTRAST CT DOSE: 639.92 mGy.cm HISTORY: Acute sepsis with epigastric abdominal pain sepsis epigastric abd pain TECHNIQUE: Multiaxial CT images of the abdomen and pelvis were performed without contrast. A dose lo wering technique was utilized adhering to the principles of ALARA. COMPARISON STUDY: Upper GI series 01/14/2020, MRI lumbar spine 06/11/2012 and 01/27/2016. FINDINGS: There is retained enteric contrast focal area within the mid to distal esophagus measuring up to appr oximately 6.4 cm in craniocaudal dimension there is moderate wall thickening of the esophagus seen di stally to this which results in apparent narrowing of the distal esophageal lumen. Trace right pleura l effusion. Mild linear subsegmental bibasilar atelectasis/scarring. There is no pneumatosis or pneum operitoneum. The imaged inferior cardiac chambers are unremarkable. Enteric contrast is also noted within the large bowel and stomach which results in streak artifact li miting evaluation of the adjacent structures.. Limited evaluation of the solid abdominal organs witho ut the use of IV contrast. Hepatic steatosis. Cholecystectomy. Unremarkable spleen, pancreas and adre nal glands. Indeterminate collateral vessels are noted within the retroperitoneum and surrounding the left kidney . Nonspecific perinephric stranding. No ureteral calculi or obstructive uropathy. Mild wall thickenin g the bladder with partial distention. Severe atrophy of the right kidney. Prostamegaly. Aneurysmal d ilation of the distal thoracic aorta measures up to 4.5 cm. Extensive calcified plaque the abdominal aorta with dilation measuring up to 3.7 cm. There is a rind of partially calcified tissue surrounding the abdominal aorta. No bowel obstruction. Limited evaluation of the colon secondary to the enteric contrast. Noninflamed appendix. Suture material is noted within bowel the abdominal right lower quadrant. Unremarkable soft tissues. Bones appear intact. IMPRESSION: 1. Limited exam secondary to retained enteric contrast within the large bowel resulting in streak art ifact. This is from the patient's recent upper GI series. 2. Retained enteric contrast is also present within a focal area of saccular dilation involving the m id to distal esophagus. Additionally, there is moderate wall of the distal esophagus with resultant l uminal narrowing. These findings should be correlated with follow-up endoscopy. 3. No bowel obstruction. 4. Fusiform aneurysmal dilation of the abdominal aorta. Additionally, there is a partially calcified rind of soft tissue density surrounding the abdominal aorta. In retrospect, this appears to be simila r to the 2016 study and is suggestive of retroperitoneal fibrosis. Collateral vessels are also noted within the retroperitoneum. 5. Prostamegaly with probable chronic bladder outlet obstruction. ACT 112: Negative or not required by law. The above report was generated using voice recognition software. It may contain grammatical, syntax o r spelling errors. Electronically signed by: Nicholas Vivar M.D. 01/19/2020 4:59 PM
[2020-01-19 17:13] LABS: Appearance Urine Clear (Clear); Blood Urine Trace (Negative); Color Urine Amber; Glucose Urine UA Negative (Negative); Ketones Urine 2+ (Negative); Leukocyte Esterase Urine Negative (Negative); Nitrite Urine Negative (Negative); Protein Urine 1+ (Negative); Specific Gravity Urine 1.015 (1.000-1.030); Urobilinogen Urine Positive (Negative); pH Urine 6.5 (4.5-7.5)
[2020-01-19] MEDS ORDERED: PIPERACILLIN/TAZOBACTAM 4.5 GM/120 ML BAG IV ONE (17:13)
[2020-01-19] MEDS ORDERED: PIPERACILL/TAZOBAC CONSULT ACTIVE PRN ×2 (17:13→18:48)
[2020-01-19 17:14] LABS: Bilirubin Urine 2+ (Negative)
[2020-01-19 17:15] LABS: Ictotest Urine Positive (Negative)
[2020-01-19 17:23] LABS: Epithelial Cell Urine 0-5 /lpf (0-5); Hyaline Casts Urine 0-5 /lpf (0-5); RBC Urine 0-4 /hpf (0-4)
[2020-01-19 17:24] LABS: Bacteria Urine Negative (Negative); WBC Urine 0-5 /hpf (0-5)
[2020-01-19] MEDS ORDERED: SODIUM CHLORIDE 0.9% 1000ML 500 ML IV ONE (17:50)
--- NOTE | 2020-01-19 18:38 | History & Physical Report ---
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 Patient meets sepsis criteria per current CMS guidelines with fever, tachycardia and leukocytosis. Blood cultures and urine cultures obtained. He received 2 L IVF while in ED along with broad-spectrum IV antibiotics including Rocephin, Levaquin and Zosyn. Source: Suspected cholangitis Fever and tachycardia have improved with above treatment and currently pt has no alteration in mental status. Admit to PCU Continue IV Zosyn GI consulted ERCP scheduled for a.m. - per Dr. Marquez no further imaging necesary Clear liquid diet this evening, n.p.o. after midnight Continue IVF NS 100 cc/h Hold Statin (3) T2DM (type 2 diabetes mellitus): Recently diagnosed, A1c 7.8 11/07/2019 Discussed with who states they have not yet met with PCP to discuss treatment options recommend diet, lifestyle modifications when able recommend close outpt follow up with PCP Trent/Novolog per protocol (4) CAD (coronary artery disease): no chest pain/sob on ASA, Statin, metoprolol as outpt [place] [facility] (5) Dyslipidemia: hold statin in setting of transminitis (6) Chronic kidney disease, stage III (moderate): Baseline creatinine 1.8 [place] [facility] [place] avoid nephrotoxic agents monitor (7) Esophageal diverticulum: Patient with complaints of difficulty swallowing Recent barium swallow revealed large distal esophageal diverticulum [facility] has scheduled endoscopy 01/21 GI on board (8) Hypertension: Blood pressures stable Continue metoprolol with appropriate hold parameters (9) IgG4 related disease: Follows Dr. Donovan Currently no longer on immunosuppressants See detailed history (10) DVT prophylaxis: SQ heparin Disposition: admit to PCU Follow up: PCP Dr. Brown upon discharge Patient was seen and examined in collaboration with Dr. Wisdom, please see addendum History of Present Illness Chief Complaint: Fever, confusion and abdominal pain x 1 day. 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 Patient admits last evening he had episode of epigastric abdominal pain which was severe. He admits he is to undergo EGD in 4 days secondary to barium swallow revealing large diverticulum. Patient has been having dysphagia of mostly meats. He was camping last evening and secondary to epigastric pain he opted to come home. Symptoms resolved and this morning he was feeling well until approximately noon when he developed significant right upper quadrant abdominal pain and chills. He took temp which was 100.4. Symptoms progressed and states he became confused, lost control of his bowels and his temperature recheck was 105 Fahrenheit. concerned for possible aspiration PNA due to him occasionally having excess secretions due to difficulty swallowing. He admits to having intermittent right upper quadrant pain for the past month. Pain was not related to meals, would come and go. Today he tried [id number] Tylenol, leftover oxycodone from prior cholecystectomy with minimal relief. Currently upon my evaluation patient has improved as he is alert and oriented and mental status is no longer altered. has noticed significant improvement. He continues to complain of fever, chills, sweats and intermittent right upper quadrant abdominal pain. Currently he is pain-free. He also admits to nausea and dry heaves earlier today. His last BM was approximately 3 days ago and he does have intermittent constipation for which he takes Colace for. His appetite has otherwise been diminished secondary to his difficulty swallowing. He denies any syncope, chest pain, shortness breath, cough, hemoptysis, hematemesis, diarrhea, melena, medic easier, dysuria, increased urgency or frequency with urination. In ED patient met sepsis criteria per current CMS guidelines with fever and tachycardia. T-max was 39.1. Lab work notable for leukocytosis 15.11k with predominant neutrophilia, transaminitis AST 248, ALT 164, alk phos 430, total bili 5.4, BUN 21, creatinine 1.97. Urinalysis revealed +2 ketones, urobilinogen, positive bilirubin and trace blood. CT Scan abd/pelvis: 1. Limited exam secondary to retained enteric contrast within the large bowel resulting in streak artifact. This is from the patient's recent upper GI series. 2. Retained enteric contrast is also present within a focal area of saccular dilation involving the mid to distal esophagus. Additiona lly, there is moderate wall of the distal esophagus with resultant luminal narrowing. These findings should be correlated with follow-up endoscopy. 3. No bowel obstruction.4. Fusiform aneurysmal dilation of the abdominal aorta. Additionally, there is a partially calcified rind of soft tissue density surrounding the abdominal aorta. In retrospect, this appears to be similar to the 2016 study and is suggestive of retroperitoneal fibrosis. Collateral vessels are also noted within the retroperitoneum. 5. Prostamegaly with probable chronic bladder outlet obstruction. CXR: w/o acute abnormality. In ED he received 2 L of IVF, IV antibiotics with 1 g ceftriaxone, 750 mg Levaquin and 1.5 g of Zosyn. He also received 1 g of oral Tylenol. Allergies Allergy/AdvReac Type Severity Reaction Status Date / Time tramadol AdvReac Unknown HIVES Verified 01/19/20 16:35 Home Medications Home Medications Medication Instructions Recorded Confirmed Type acetaminophen 500 mg tablet 500 - 1,000 mg PO Q4H PRN 03/05/19 01/19/20 History aspirin 81 mg tablet,delayed 81 mg PO DAILY tab 03/05/19 01/19/20 History release ergocalciferol (vitamin D2) 1,250 50,000 units PO MONTHLY #12 cap 05/06/19 01/19/20 Rx mcg (50,000 unit) capsule clonazepam 1 mg tablet 1 mg PO HS PRN #30 tab 06/18/19 01/19/20 Rx hydroxyzine HCl 10 mg tablet 10 mg PO ONCE PRN tab 07/17/19 01/19/20 History metoprolol succinate 25 mg 37.5 mg PO BID #270 tab 07/17/19 01/19/20 Rx tablet,extended release 24 hr atorvastatin 20 mg tablet 10 mg PO DAILY #45 tab 12/27/19 01/19/20 Rx docusate sodium 100 mg PO DAILY PRN 01/19/20 01/19/20 History omeprazole 20 mg PO DAILY 01/19/20 01/19/20 History oxycodone 5 mg PO BID PRN 01/19/20 01/19/20 History Past Med/Surg History Medical History (Updated 01/19/20 @ 21:00 by Kg Wylie DO) AAA (abdominal aortic aneurysm) "stage 4 rare vasculitis s/p AAA repair performed by Dr. Martinez Jerome 02/03/16 " Aneurysm of thoracic aorta Anxiety Basal cell carcinoma (BCC) CAD (coronary artery disease) Chronic kidney disease, stage III (moderate) Dyslipidemia GERD (gastroesophageal reflux disease) History of empyema of pleura History of TIA (transient ischemic attack) Hypertension IgG4 related disease Nephrolithiasis Obstructive sleep apnea Intolerant to CPAP Old myocardial infarct Periodic limb movement disorder Spinal stenosis T2DM (type 2 diabetes mellitus) Vasculitis involving renal artery Vitamin D deficiency Surgical History (Updated 01/19/20 @ 18:52 by Suzan Figueroa PA-C) History of AAA (abdominal aortic aneurysm) repair s/p TEVAR 2016 for 8 cm thoracic aneurysm after prior open repair of Type IV TAAA 2016 for IgG4 related inflammatory aneurysm. History of cholecystectomy 12/2018 History of colostomy History of colostomy reversal ileostomy reversal 10/2018 History of lung surgery Secondary to empyema History of partial colectomy "L hemicolectomy with colostomy 2* mesenteric ischemia s/p vascular surgery 02/03/16" History of thoracic aortic aneurysm repair S/P Mohs surgery for basal cell carcinoma Family History Father Diabetes Other Colorectal cancer Obstructive sleep apnea Social History Smoking Status: Former smoker Tobacco Type: Cigarettes Second Hand Exposure: No; Do You Dip or Chew Tobacco: No; Tobacco Cessation Education Requested by Patient: No Hx Alcohol Use: No Hx Substance Use: No Preferred Language: [place] Communication Ability: Effective Beliefs That Will Affect Care: None marital status: Current Living Situation: Spouse current occupational status: retired Feels Safe at Home: Yes Safety Concerns: Feels Safe At This Time Review of Systems Review of Systems: All systems reviewed & are unremarkable except as noted in HPI & below Physical Exam Physical Exam: Constitutional: WD/WN, male, vitals as above, NAD, sitting up in bed, pleasant, conversing easily Head: Normocephalic, Atraumatic Eyes: PERRL, conjunctivae normal, anicteric sclerae ENMT: external ear and nose normal, oropharynx normal Neck: trachea midline, no thyromegaly normal visual inspection Respiratory: normal respiratory effort, lungs clear to auscultation, no wheeze, rales, rhonchi. Normal insp/exp effort, no accessory muscle use Cardiovascular: Mildly tachycardic, regular rhythm, no murmur, no edema Vessels: no JVD or carotid bruit Chest: normal inspection of chest, left posterior chest wall scar secondary to prior lung surgery Abdomen: Decreased bowel sounds, soft, nontender, no hepatosplenomegaly Musculoskeletal: no cyanosis or clubbing, extremities motor strength 5/5 Skin: no rashes, warm and dry normal turgor Neurologic: PERRL, EOMI, accommodation nl, no face palsy, no dysarthria CN's II-XI intact bilaterally and moves all extremities Psychiatric: A+Ox3, euthymic affect Lymphatic: no cervical or axillary lymphadenopathy : deferred Results & Data Results & Data ([facility]) Vital Signs (Past 12 Hours) Vital Signs Temp Pulse Resp BP Pulse Ox 01/19/20 18:00 20 93 01/19/20 17:45 94 H 24 110/63 92 01/19/20 17:31 18 95 01/19/20 17:30 101 H 20 118/70 92 01/19/20 17:28 37.9 C H 01/19/20 17:15 102 H 24 112/64 93 01/19/20 17:00 116 H 20 94 01/19/20 16:45 106 H 20 110/72 93 01/19/20 16:31 109 H 25 H 122/77 93 01/19/20 16:30 109 H 26 H 01/19/20 16:25 111 H 26 H 01/19/20 16:04 114 H 24 95 01/19/20 16:00 114 H 18 135/71 96 01/19/20 15:45 18 96 01/19/20 15:18 39.2 C H 116 H 20 118/69 91 Laboratory Results Short CBC 01/19/20 01/19/20 Range/Units 15:46 15:53 WBC 15.11 H (4.8-10.8) K/uL Hgb 17.7 (14.0-18.0) g/dL POC Hgb 18.7 H (14.0-18.0) g/dl Hct 51.4 (42-52) % Plt Count 163 (130-400) K/uL BMP 01/19/20 15:46 Sodium 137 Potassium 4.3 Chloride 106 Carbon Dioxide 23 BUN 21 H Creatinine 1.97 H Glucose 182 H Calcium 9.1 Cardiac Enzymes 01/19/20 Range/Units 15:46 Troponin I < 0.015 (0-0.045) ng/ml Liver Function 01/19/20 Range/Units 15:46 Total Bilirubin 5.4 H (0.2-1) mg/dl AST 248 H (15-37) U/L ALT 164 H (12-78) U/L Alkaline Phosphatase 430 H (45-117) U/L Albumin 3.6 (3.4-5.0) gm/dl Urine 01/19/20 Range/Units 17:00 Urine Color [place] Urine Appearance Clear (Clear) Urine pH 6.5 (4.5-7.5) Ur Specific [place] 1.015 (1.000-1.030) Urine Protein 1+ H (Negative) Urine Glucose (UA) Negative (Negative) Diagnostic Findings CT Abd/Pelvis: IMPRESSION: 1. Limited exam secondary to retained enteric contrast within the large bowel resulting in streak artifact. This is from the patient's recent upper GI series. 2. Retained enteric contrast is also present within a focal area of saccular dilation involving the mid to distal esophagus. Additionally, there is moderate wall of the distal esophagus with resultant luminal narrowing. These findings should be correlated with follow-up endoscopy. 3. No bowel obstruction. 4. Fusiform aneurysmal dilation of the abdominal aorta. Additionally, there is a partially calcified rind of soft tissue density surrounding the abdominal aorta. In retrospect, this appears to be similar to the 2016 study and is suggestive of retroperitoneal fibrosis. Collateral vessels are also noted within the retroperitoneum. 5. Prostamegaly with probable chronic bladder outlet obstruction. CXR: IMPRESSION: 1. Cardiomegaly without acute process. 2. Retained enteric contrast from recent upper GI series with and a focally dilated portion of the mid to distal esophagus, possibly reflective of an esophageal diverticulum. Medications Administered Discontinued Medications Acetaminophen (Acetaminophen 500 Mg Tab) 1,000 mg PO NOW STA Stop: 01/19/20 15:32 Last Admin: 01/19/20 16:30 Dose: 1,000 mg Documented by: [id number] Levofloxacin/Dextrose (Levaquin/D5w) 750 mg in 150 mls @ 100 mls/hr IV NOW STA Stop: 01/19/20 17:00 Last Infusion: 01/19/20 18:12 Dose: 0 mls/hr Documented by: [id number] Admin: 01/19/20 16:00 Dose: 100 mls/hr Documented by: [id number] Ceftriaxone Sodium (Rocephin) 1,000 mg in 50 mls @ 100 mls/hr IV NOW STA Stop: 01/19/20 16:00 Last Infusion: 01/19/20 17:10 Dose: 0 mls/hr Documented by: [id number] Admin: 01/19/20 16:00 Dose: 100 mls/hr Documented by: [id number] Sodium Chloride (Nss 1000ml) 2,000 mls @ 999 mls/hr IV .Q2H1M ONE Stop: 01/19/20 17:31 Last Infusion: 01/19/20 18:12 Dose: 0 mls/hr Documented by: [id number] Admin: 01/19/20 16:00 Dose: 999 mls/hr Documented by: [id number] Piperacillin Sod/Tazobactam Sod (Zosyn) 4.5 gm in 120 mls @ 240 mls/hr IV NOW ONE Stop: 01/19/20 17:42 Last Infusion: 01/19/20 18:12 Dose: 0 mls/hr Documented by: [id number] Admin: 01/19/20 17:26 Dose: 240 mls/hr Documented by: [id number] ECG Rate (beats per minute): 105 Rhythm: sinus tachycardia Code Status & VTE Plan Code Status Full Code VTE Prophylaxis Plan VTE Prophylaxis will be ordered: Yes Supervising Physician Co-Signing Physician Notes I have seen and examined the patient and have discussed the case with the provider above. I agree with the assessment and plan as stated. 69 yo M s/p cholecystectomy in the past presents for intermittent severe abdominal pain provoked by food. Found to be septic on arrival and resuscitated in the ER. Intraabdominal process thought like source. Placed on Zosyn and continued on IVF as labwork also reflected some evidence of dehydration. GI to see him in am and will likely be planning an EGD/EUS. No current abdominal pain and physical exam is unremarkable. He looks stable, fever has resolved, and he reports feeling significantly better. Cont Zosyn pending clinical improvement and culture results. I spoke with who was at bedside and all questions were answered. Artis, DO
[2020-01-19] MEDS ORDERED: GLUCOSE 40% GEL 15 GM TUBE PO PRN (18:48)
[2020-01-19] MEDS ORDERED: GLUCOSE 10 TABS/TUBE PO PRN (18:48)
[2020-01-19] MEDS ORDERED: GLUCAGON FOR INJ 1 MG VIAL SQ PRN (18:48)
[2020-01-19] MEDS ORDERED: DEXTROSE 50% 50 ML SYRINGE IV PRN (18:48)
[2020-01-19] MEDS ORDERED: CARBOHYDRATES FOR HYPOGLYCEMIA PO PRN (18:48)
[2020-01-19] MEDS ORDERED: PATIENT'S HEIGHT AND/OR WEIGHT NEEDED SCH (19:00)
[2020-01-19] MEDS ORDERED: DOCUSATE SODIUM 100 MG CAP PO PRN (19:00)
[2020-01-19] MEDS ORDERED: ACETAMINOPHEN 1,000 MG/100 ML VIAL IV PRN (19:08)
[2020-01-19] MEDS: SODIUM CHLORIDE 0.9% 1000ML 1,000 ML IV SCH (19:57)
[2020-01-19] MEDS: PIPERACILLIN/TAZOBACTAM 3.375 GM in DEXTROSE 5% 100 ML IV SCH (20:11)
[2020-01-19] MEDS: INSULIN ASPART 100 UNITS/ML 3 ML PEN SC SCH (20:13)
[2020-01-19] MEDS: HEPARIN SOD 5,000 UNIT/0.5 ML VIAL SQ SCH (20:14)
[2020-01-19] MEDS: INSULIN GLARGINE SOLOSTAR 100 UNITS/ML 3 ML PEN SC SCH (20:14)
[2020-01-19] MEDS: METOPROLOL SUCC 25MG EXT REL TAB PO SCH (20:15)
[2020-01-19] MEDS ORDERED: SENNA 8.6 MG TAB PO STA (21:49)
[2020-01-19] MEDS ORDERED: SENNA 8.6 MG TAB PO PRN (21:49)
--- NOTE | 2020-01-20 00:08 | Electrocardiogram Report ---
Test Reason : Blood Pressure : / mmHG Vent. Rate : 105 BPM Atrial Rate : 105 BPM P-R Int : 168 ms QRS Dur : 100 ms QT Int : 330 ms P-R-T Axes : 074 -57 059 degrees QTc Int : 436 ms Sinus tachycardia Possible Left atrial enlargement Left axis deviation Inferior infarct (cited on or before 19-JAN-2020) Abnormal ECG When compared with ECG of 05-MAY-2017 03:26, No significant change was found Confirmed by Gilmar Levy ([id number]) on 01/20/2020 12:07:54 AM Referred By: REFERRED SELF Confirmed By:Gilmar Levy
[2020-01-20] MEDS: PIPERACILLIN/TAZOBACTAM 3.375 GM in DEXTROSE 5% 100 ML IV SCH ×3 (05:44→21:10)
[2020-01-20] MEDS: SODIUM CHLORIDE 0.9% 1000ML 1,000 ML IV SCH ×2 (05:44→18:24)
[2020-01-20] MEDS: HEPARIN SOD 5,000 UNIT/0.5 ML VIAL SQ SCH (05:45)
[2020-01-20 07:48] LABS: Basophils # (auto) 0.01 K/uL (0-0.2); Basophils % (auto) 0.1 %; Eosinophils # (auto) 0.08 K/uL (0-0.5); Eosinophils % (auto) 0.7 %; Hematocrit (blood only) 46.2 % (42-52); Hemoglobin 15.1 g/dL (14.0-18.0); Immature Granulocytes # (auto) 0.03 K/uL (0.00-0.02); Immature Granulocytes % (auto) 0.3 %; Lymphocytes # (auto) 0.98 K/uL (1.2-3.4); Lymphocytes % (auto) 8.9 %; Mean Corpuscular Hemoglobin 28.3 pg (25-34); Mean Corpuscular Hgb Conc 32.7 g/dL (32-36); Mean Corpuscular Volume 86.7 fL (80-100); Mean Platelet Volume 10.8 fL (7.4-10.4); Monocytes # (auto) 1.09 K/uL (0.11-0.59); Monocytes % (auto) 9.9 %; Neutrophils # (auto) 8.79 K/uL (1.4-6.5); Neutrophils % (auto) 80.1 %; Platelet Count 130 K/uL (130-400); RDW Coefficient of Variation 14.8 % (11.5-14.5); RDW Standard Deviation 46.8 fL (36.4-46.3); Red Blood Count 5.33 M/uL (4.7-6.1); White Blood Count 10.98 K/uL (4.8-10.8)
[2020-01-20] MEDS: INSULIN ASPART 100 UNITS/ML 3 ML PEN SC SCH ×4 (08:03→21:10)
[2020-01-20] MEDS: INSULIN GLARGINE SOLOSTAR 100 UNITS/ML 3 ML PEN SC SCH (08:03)
[2020-01-20] MEDS: PANTOprazole 40 MG TAB PO SCH (08:24)
[2020-01-20] MEDS: METOPROLOL SUCC 25MG EXT REL TAB PO SCH ×2 (08:24→21:10)
[2020-01-20 08:50] LABS: Estimated Average Glucose 169 mg/dl; Hemoglobin A1C 7.5 % (4.5-5.6)
[2020-01-20 08:53] LABS: Albumin Globulin Ratio 0.8 (0.9-2); Albumin Level 2.7 gm/dl (3.4-5.0); BUN Creatinine Ratio 10.9 (10-20); Calcium 7.8 mg/dl (8.5-10.1); Creatinine Clr Calc Pharmacy 43.2 ml/min; Est GFR (African American) 43.8; Est GFR (Non-African American) 37.8; Globulin 3.3 gm/dl (2.5-4.0); Magnesium 1.9 mg/dl (1.8-2.4); Potassium 4.7 mmol/L (3.5-5.1)
--- NOTE | 2020-01-20 10:02 | Gastrointestinal Consultation ---
Date of Consultation January 20, 2020 Assessment & Plan (1) Transaminitis: 69 year old male admitted w/ abd pain, transaminitis, sepsis w/ cultures pending, clinical concern for cholangitis, NPO for ERCP giving rising tramaniases Continue IV ABX Follow blood culture NPO ERCP today Trend LFTs IVF hydration Analgesia PRN Antietmics PRN Supervising Physician Co-Signing Physician Notes I have seen and examined the patient with DARCY Brennan whose note reflects our findings and plan. ERCP today for ?cholangitis as source of sepsis. 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 GI asked to evaluate given tranaminases, concern for cholangitis. Blood cultures obtained, pending. Started on broadspectrum ABX. Notes his pain this AM is improving. Less severe. Still epigastric/RUQ. No nausea/vomiting. LFTs rising over night. Allergies Allergy/AdvReac Type Severity Reaction Status Date / Time tramadol AdvReac Unknown HIVES Verified 01/19/20 16:35 clotrimazole AdvReac Rash Verified 01/20/20 09:20 Home Medications Home Medications Medication Instructions Recorded Confirmed Type acetaminophen 500 mg tablet 500 - 1,000 mg PO Q4H PRN 03/05/19 01/19/20 History aspirin 81 mg tablet,delayed 81 mg PO DAILY tab 03/05/19 01/19/20 History release ergocalciferol (vitamin D2) 1,250 50,000 units PO MONTHLY #12 cap 05/06/19 01/19/20 Rx mcg (50,000 unit) capsule clonazepam 1 mg tablet 1 mg PO HS PRN #30 tab 06/18/19 01/19/20 Rx hydroxyzine HCl 10 mg tablet 10 mg PO ONCE PRN tab 07/17/19 01/19/20 History metoprolol succinate 25 mg 37.5 mg PO BID #270 tab 07/17/19 01/19/20 Rx tablet,extended release 24 hr atorvastatin 20 mg tablet 10 mg PO DAILY #45 tab 12/27/19 01/19/20 Rx docusate sodium 100 mg PO DAILY PRN 01/19/20 01/19/20 History omeprazole 20 mg PO DAILY 01/19/20 01/19/20 History oxycodone 5 mg PO BID PRN 01/19/20 01/19/20 History Patient History Medical History AAA (abdominal aortic aneurysm) "stage 4 rare vasculitis s/p AAA repair performed by Dr. Martinez Jerome 02/03/16 " Aneurysm of thoracic aorta Anxiety Basal cell carcinoma (BCC) CAD (coronary artery disease) Chronic kidney disease, stage III (moderate) Dyslipidemia GERD (gastroesophageal reflux disease) History of empyema of pleura History of TIA (transient ischemic attack) Hypertension IgG4 related disease Nephrolithiasis Obstructive sleep apnea Intolerant to CPAP Old myocardial infarct Periodic limb movement disorder Spinal stenosis T2DM (type 2 diabetes mellitus) Vasculitis involving renal artery Vitamin D deficiency Surgical History History of AAA (abdominal aortic aneurysm) repair s/p TEVAR 2016 for 8 cm thoracic aneurysm after prior open repair of Type IV TAAA 2016 for IgG4 related inflammatory aneurysm. History of cholecystectomy 12/2018 History of colostomy History of colostomy reversal ileostomy reversal 10/2018 History of lung surgery Secondary to empyema History of partial colectomy "L hemicolectomy with colostomy 2* mesenteric ischemia s/p vascular surgery 02/03/16" History of thoracic aortic aneurysm repair S/P Mohs surgery for basal cell carcinoma Family History Father Diabetes Other Colorectal cancer Obstructive sleep apnea Social History Smoking Status: Former smoker Tobacco Type: Cigarettes Second Hand Exposure: No; Do You Dip or Chew Tobacco: No; Tobacco Cessation Education Requested by Patient: No Hx Alcohol Use: No Hx Substance Use: No Preferred Language: Serbian Communication Ability: Effective Beliefs That Will Affect Care: None marital status: Current Living Situation: Spouse current occupational status: retired Feels Safe at Home: Yes Safety Concerns: Feels Safe At This Time Review of Systems Constitutional: no fever and no chills Respiratory: no cough and no dyspnea Cardiovascular: no chest pain and no dyspnea Gastrointestinal: + abdominal pain; no nausea, no blood in stools and no melena Physical Exam Constitutional: well developed and well nourished; no acute distress Respiratory: normal respiratory effort Cardiovascular: Rate/Rhythm: regular rate and regular rhythm Gastrointestinal (Abdomen): Inspection/Auscultation: normal bowel sounds Percussion/Palpation: + abdomen tender and abdomen soft; no guarding and abdomen not rigid Skin: + jaundice Results & Data ([facility]) Vital Signs (Past 12 Hours) Vital Signs Temp Pulse Pulse Resp BP Pulse Ox 01/20/20 08:05 36.5 C 68 18 133/75 96 01/20/20 07:25 56 L 01/20/20 03:47 36.4 C L 70 18 121/78 97 01/19/20 23:40 36.4 C L 68 18 117/71 98 Laboratory Results 01/20/20 01/20/20 01/20/20 Range/Units 07:45 07:08 07:08 WBC (4.8-10.8) K/uL RBC (4.7-6.1) M/uL Hgb (14.0-18.0) g/dL POC Hgb (14.0-18.0) g/dl Hct (42-52) % POC Hct (42-52) % MCV (80-100) fL MCH (25-34) pg MCHC (32-36) g/dL RDW Std Deviation (36.4-46.3) fL RDW Coeff of Justina (11.5-14.5) % Plt Count (130-400) K/uL MPV (7.4-10.4) fL Immature Gran % (Auto) % Neut % (Auto) % Lymph % (Auto) % [facility] % (Auto) % Eos % (Auto) % Baso % (Auto) % Neut # (Auto) (1.4-6.5) K/uL Lymph # (Auto) (1.2-3.4) K/uL [facility] # (Auto) (0.11-0.59) K/uL Eos # (Auto) (0-0.5) K/uL Baso # (Auto) (0-0.2) K/uL Immature Gran # (Auto) (0.00-0.02) K/uL PT (9.0-12.0) Seconds INR (0.9-1.1) APTT (21.0-31.0) Seconds PTT Ratio POC Sodium (135-144) mmol/L Sodium 140 (136-145) mmol/L POC Potassium (3.3-5.0) mmol/L Potassium 4.7 (3.5-5.1) mmol/L POC Chloride (101-112) mmol/L Chloride 112 H (98-107) mmol/L Carbon Dioxide 24 (21-32) mmol/L POC Total CO2 (24-31) mmol/L Anion Gap 4.0 (3-11) POC Anion Gap (16-25) mmol/L POC BUN (7-18) mg/dl BUN 20 H (7-18) mg/dl Creatinine 1.80 H (0.6-1.4) mg/dl POC Creatinine (0.6-1.3) mg/dl Est Cr Clr Drug Dosing 43.2 Est GFR ( Amer) 43.8 Est GFR (Non-Af Amer) 37.8 BUN/Creatinine Ratio 10.9 (10-20) Glucose 122 H (70-99) mg/dl POC Glucose 113 H (70-99) mg/dl POC Glucose (other) (70-99) mg/dl Estimat Average Glucose 169 mg/dl Hemoglobin A1c 7.5 H (4.5-5.6) % Lactate (0.4-2.0) mmol/L Calcium 7.8 L (8.5-10.1) mg/dl POC Ioniz Calcium Damion (1.12-1.32) mmol/l Magnesium 1.9 (1.8-2.4) mg/dl Total Bilirubin 6.0 H (0.2-1) mg/dl AST 165 H (15-37) U/L ALT 162 H (12-78) U/L Alkaline Phosphatase 255 H (45-117) U/L Troponin I (0-0.045) ng/ml Total Protein 6.0 L (6.4-8.2) gm/dl Albumin 2.7 L (3.4-5.0) gm/dl Globulin 3.3 (2.5-4.0) gm/dl Albumin/Globulin Ratio 0.8 L (0.9-2) Urine Color Urine Appearance (Clear) Urine pH (4.5-7.5) Ur Specific [place] (1.000-1.030) Urine Protein (Negative) Urine Glucose (UA) (Negative) Urine Ketones (Negative) Urine Blood (Negative) Urine Nitrite (Negative) Urine Bilirubin (Negative) Urine Urobilinogen (Negative) Ur Leukocyte Esterase (Negative) Urine RBC (0-4) /hpf Urine WBC (0-5) /hpf Ur Epithelial Cells (0-5) /lpf Urine Bacteria (Negative) Hyaline Casts (0-5) /lpf COVID-19 Eval Order COVID-19 PCR (Negative) 01/20/20 01/19/20 01/19/20 Range/Units 07:08 21:25 21:25 WBC 10.98 H (4.8-10.8) K/uL RBC 5.33 (4.7-6.1) M/uL Hgb 15.1 (14.0-18.0) g/dL POC Hgb (14.0-18.0) g/dl Hct 46.2 (42-52) % POC Hct (42-52) % MCV 86.7 (80-100) fL MCH 28.3 (25-34) pg MCHC 32.7 (32-36) g/dL RDW Std Deviation 46.8 H (36.4-46.3) fL RDW Coeff of Justina 14.8 H (11.5-14.5) % Plt Count 130 (130-400) K/uL MPV 10.8 H (7.4-10.4) fL Immature Gran % (Auto) 0.3 % Neut % (Auto) 80.1 % Lymph % (Auto) 8.9 % [facility] % (Auto) 9.9 % Eos % (Auto) 0.7 % Baso % (Auto) 0.1 % Neut # (Auto) 8.79 H (1.4-6.5) K/uL Lymph # (Auto) 0.98 L (1.2-3.4) K/uL [facility] # (Auto) 1.09 H (0.11-0.59) K/uL Eos # (Auto) 0.08 (0-0.5) K/uL Baso # (Auto) 0.01 (0-0.2) K/uL Immature Gran # (Auto) 0.03 H (0.00-0.02) K/uL PT (9.0-12.0) Seconds INR (0.9-1.1) APTT (21.0-31.0) Seconds PTT Ratio POC Sodium (135-144) mmol/L Sodium (136-145) mmol/L POC Potassium (3.3-5.0) mmol/L Potassium (3.5-5.1) mmol/L POC Chloride (101-112) mmol/L Chloride (98-107) mmol/L Carbon Dioxide (21-32) mmol/L POC Total CO2 (24-31) mmol/L Anion Gap (3-11) POC Anion Gap (16-25) mmol/L POC BUN (7-18) mg/dl BUN (7-18) mg/dl Creatinine (0.6-1.4) mg/dl POC Creatinine (0.6-1.3) mg/dl Est Cr Clr Drug Dosing Est GFR ( Amer) Est GFR (Non-Af Amer) BUN/Creatinine Ratio (10-20) Glucose (70-99) mg/dl POC Glucose (70-99) mg/dl POC Glucose (other) (70-99) mg/dl Estimat Average Glucose mg/dl Hemoglobin A1c (4.5-5.6) % Lactate (0.4-2.0) mmol/L Calcium (8.5-10.1) mg/dl POC Ioniz Calcium Damion (1.12-1.32) mmol/l Magnesium (1.8-2.4) mg/dl Total Bilirubin (0.2-1) mg/dl AST (15-37) U/L ALT (12-78) U/L Alkaline Phosphatase (45-117) U/L Troponin I (0-0.045) ng/ml Total Protein (6.4-8.2) gm/dl Albumin (3.4-5.0) gm/dl Globulin (2.5-4.0) gm/dl Albumin/Globulin Ratio (0.9-2) Urine Color Urine Appearance (Clear) Urine pH (4.5-7.5) Ur Specific [place] (1.000-1.030) Urine Protein (Negative) Urine Glucose (UA) (Negative) Urine Ketones (Negative) Urine Blood (Negative) Urine Nitrite (Negative) Urine Bilirubin (Negative) Urine Urobilinogen (Negative) Ur Leukocyte Esterase (Negative) Urine RBC (0-4) /hpf Urine WBC (0-5) /hpf Ur Epithelial Cells (0-5) /lpf Urine Bacteria (Negative) Hyaline Casts (0-5) /lpf COVID-19 Eval Order Covid19 Done at [facility] COVID-19 PCR NEGATIVE (Negative) 01/19/20 01/19/20 01/19/20 Range/Units 20:10 17:00 15:53 WBC (4.8-10.8) K/uL RBC (4.7-6.1) M/uL Hgb (14.0-18.0) g/dL POC Hgb 18.7 H (14.0-18.0) g/dl Hct (42-52) % POC Hct 55 H (42-52) % MCV (80-100) fL MCH (25-34) pg MCHC (32-36) g/dL RDW Std Deviation (36.4-46.3) fL RDW Coeff of Justina (11.5-14.5) % Plt Count (130-400) K/uL MPV (7.4-10.4) fL Immature Gran % (Auto) % Neut % (Auto) % Lymph % (Auto) % [facility] % (Auto) % Eos % (Auto) % Baso % (Auto) % Neut # (Auto) (1.4-6.5) K/uL Lymph # (Auto) (1.2-3.4) K/uL [facility] # (Auto) (0.11-0.59) K/uL Eos # (Auto) (0-0.5) K/uL Baso # (Auto) (0-0.2) K/uL Immature Gran # (Auto) (0.00-0.02) K/uL PT (9.0-12.0) Seconds INR (0.9-1.1) APTT (21.0-31.0) Seconds PTT Ratio POC Sodium 137 (135-144) mmol/L Sodium (136-145) mmol/L POC Potassium 4.4 (3.3-5.0) mmol/L Potassium (3.5-5.1) mmol/L POC Chloride 102 (101-112) mmol/L Chloride (98-107) mmol/L Carbon Dioxide (21-32) mmol/L POC Total CO2 21 L (24-31) mmol/L Anion Gap (3-11) POC Anion Gap 20.0 (16-25) mmol/L POC BUN 23 H (7-18) mg/dl BUN (7-18) mg/dl Creatinine (0.6-1.4) mg/dl POC Creatinine 1.9 H (0.6-1.3) mg/dl Est Cr Clr Drug Dosing Est GFR ( Amer) Est GFR (Non-Af Amer) BUN/Creatinine Ratio (10-20) Glucose (70-99) mg/dl POC Glucose 207 H (70-99) mg/dl POC Glucose (other) 189 H (70-99) mg/dl Estimat Average Glucose mg/dl Hemoglobin A1c (4.5-5.6) % Lactate (0.4-2.0) mmol/L Calcium (8.5-10.1) mg/dl POC Ioniz Calcium Damion 1.14 (1.12-1.32) mmol/l Magnesium (1.8-2.4) mg/dl Total Bilirubin (0.2-1) mg/dl AST (15-37) U/L ALT (12-78) U/L Alkaline Phosphatase (45-117) U/L Troponin I (0-0.045) ng/ml Total Protein (6.4-8.2) gm/dl Albumin (3.4-5.0) gm/dl Globulin (2.5-4.0) gm/dl Albumin/Globulin Ratio (0.9-2) Urine Color [place] Urine Appearance Clear (Clear) Urine pH 6.5 (4.5-7.5) Ur Specific [place] 1.015 (1.000-1.030) Urine Protein 1+ H (Negative) Urine Glucose (UA) Negative (Negative) Urine Ketones 2+ H (Negative) Urine Blood Trace H (Negative) Urine Nitrite Negative (Negative) Urine Bilirubin 2+ H (Negative) Urine Urobilinogen Positive H (Negative) Ur Leukocyte Esterase Negative (Negative) Urine RBC 0-4 (0-4) /hpf Urine WBC 0-5 (0-5) /hpf Ur Epithelial Cells 0-5 (0-5) /lpf Urine Bacteria Negative (Negative) Hyaline Casts 0-5 (0-5) /lpf COVID-19 Eval Order COVID-19 PCR (Negative) 01/19/20 01/19/20 01/19/20 Range/Units 15:46 15:46 15:46 WBC (4.8-10.8) K/uL RBC (4.7-6.1) M/uL Hgb (14.0-18.0) g/dL POC Hgb (14.0-18.0) g/dl Hct (42-52) % POC Hct (42-52) % MCV (80-100) fL MCH (25-34) pg MCHC (32-36) g/dL RDW Std Deviation (36.4-46.3) fL RDW Coeff of Justina (11.5-14.5) % Plt Count (130-400) K/uL MPV (7.4-10.4) fL Immature Gran % (Auto) % Neut % (Auto) % Lymph % (Auto) % [facility] % (Auto) % Eos % (Auto) % Baso % (Auto) % Neut # (Auto) (1.4-6.5) K/uL Lymph # (Auto) (1.2-3.4) K/uL [facility] # (Auto) (0.11-0.59) K/uL Eos # (Auto) (0-0.5) K/uL Baso # (Auto) (0-0.2) K/uL Immature Gran # (Auto) (0.00-0.02) K/uL PT 11.4 (9.0-12.0) Seconds INR 1.1 (0.9-1.1) APTT 22.6 (21.0-31.0) Seconds PTT Ratio 0.8 POC Sodium (135-144) mmol/L Sodium 137 (136-145) mmol/L POC Potassium (3.3-5.0) mmol/L Potassium 4.3 (3.5-5.1) mmol/L POC Chloride (101-112) mmol/L Chloride 106 (98-107) mmol/L Carbon Dioxide 23 (21-32) mmol/L POC Total CO2 (24-31) mmol/L Anion Gap 8.0 (3-11) POC Anion Gap (16-25) mmol/L POC BUN (7-18) mg/dl BUN 21 H (7-18) mg/dl Creatinine 1.97 H (0.6-1.4) mg/dl POC Creatinine (0.6-1.3) mg/dl Est Cr Clr Drug Dosing Not Reportable Est GFR ( Amer) 39.3 Est GFR (Non-Af Amer) 33.9 BUN/Creatinine Ratio 10.6 (10-20) Glucose 182 H (70-99) mg/dl POC Glucose (70-99) mg/dl POC Glucose (other) (70-99) mg/dl Estimat Average Glucose mg/dl Hemoglobin A1c (4.5-5.6) % Lactate 2.0 (0.4-2.0) mmol/L Calcium 9.1 (8.5-10.1) mg/dl POC Ioniz Calcium Damion (1.12-1.32) mmol/l Magnesium 1.8 (1.8-2.4) mg/dl Total Bilirubin 5.4 H (0.2-1) mg/dl AST 248 H (15-37) U/L ALT 164 H (12-78) U/L Alkaline Phosphatase 430 H (45-117) U/L Troponin I < 0.015 (0-0.045) ng/ml Total Protein 7.5 (6.4-8.2) gm/dl Albumin 3.6 (3.4-5.0) gm/dl Globulin 3.9 (2.5-4.0) gm/dl Albumin/Globulin Ratio 0.9 (0.9-2) Urine Color Urine Appearance (Clear) Urine pH (4.5-7.5) Ur Specific [place] (1.000-1.030) Urine Protein (Negative) Urine Glucose (UA) (Negative) Urine Ketones (Negative) Urine Blood (Negative) Urine Nitrite (Negative) Urine Bilirubin (Negative) Urine Urobilinogen (Negative) Ur Leukocyte Esterase (Negative) Urine RBC (0-4) /hpf Urine WBC (0-5) /hpf Ur Epithelial Cells (0-5) /lpf Urine Bacteria (Negative) Hyaline Casts (0-5) /lpf COVID-19 Eval Order COVID-19 PCR (Negative) 01/19/20 Range/Units 15:46 WBC 15.11 H (4.8-10.8) K/uL RBC 5.97 (4.7-6.1) M/uL Hgb 17.7 (14.0-18.0) g/dL POC Hgb (14.0-18.0) g/dl Hct 51.4 (42-52) % POC Hct (42-52) % MCV 86.1 (80-100) fL MCH 29.6 (25-34) pg MCHC 34.4 (32-36) g/dL RDW Std Deviation 45.2 (36.4-46.3) fL RDW Coeff of Justina 14.3 (11.5-14.5) % Plt Count 163 (130-400) K/uL MPV 10.7 H (7.4-10.4) fL Immature Gran % (Auto) 0.2 % Neut % (Auto) 87.2 % Lymph % (Auto) 4.6 % [facility] % (Auto) 7.6 % Eos % (Auto) 0.3 % Baso % (Auto) 0.1 % Neut # (Auto) 13.18 H (1.4-6.5) K/uL Lymph # (Auto) 0.70 L (1.2-3.4) K/uL [facility] # (Auto) 1.15 H (0.11-0.59) K/uL Eos # (Auto) 0.04 (0-0.5) K/uL Baso # (Auto) 0.01 (0-0.2) K/uL Immature Gran # (Auto) 0.03 H (0.00-0.02) K/uL PT (9.0-12.0) Seconds INR (0.9-1.1) APTT (21.0-31.0) Seconds PTT Ratio POC Sodium (135-144) mmol/L Sodium (136-145) mmol/L POC Potassium (3.3-5.0) mmol/L Potassium (3.5-5.1) mmol/L POC Chloride (101-112) mmol/L Chloride (98-107) mmol/L Carbon Dioxide (21-32) mmol/L POC Total CO2 (24-31) mmol/L Anion Gap (3-11) POC Anion Gap (16-25) mmol/L POC BUN (7-18) mg/dl BUN (7-18) mg/dl Creatinine (0.6-1.4) mg/dl POC Creatinine (0.6-1.3) mg/dl Est Cr Clr Drug Dosing Est GFR ( Amer) Est GFR (Non-Af Amer) BUN/Creatinine Ratio (10-20) Glucose (70-99) mg/dl POC Glucose (70-99) mg/dl POC Glucose (other) (70-99) mg/dl Estimat Average Glucose mg/dl Hemoglobin A1c (4.5-5.6) % Lactate (0.4-2.0) mmol/L Calcium (8.5-10.1) mg/dl POC Ioniz Calcium Damion (1.12-1.32) mmol/l Magnesium (1.8-2.4) mg/dl Total Bilirubin (0.2-1) mg/dl AST (15-37) U/L ALT (12-78) U/L Alkaline Phosphatase (45-117) U/L Troponin I (0-0.045) ng/ml Total Protein (6.4-8.2) gm/dl Albumin (3.4-5.0) gm/dl Globulin (2.5-4.0) gm/dl Albumin/Globulin Ratio (0.9-2) Urine Color Urine Appearance (Clear) Urine pH (4.5-7.5) Ur Specific [place] (1.000-1.030) Urine Protein (Negative) Urine Glucose (UA) (Negative) Urine Ketones (Negative) Urine Blood (Negative) Urine Nitrite (Negative) Urine Bilirubin (Negative) Urine Urobilinogen (Negative) Ur Leukocyte Esterase (Negative) Urine RBC (0-4) /hpf Urine WBC (0-5) /hpf Ur Epithelial Cells (0-5) /lpf Urine Bacteria (Negative) Hyaline Casts (0-5) /lpf COVID-19 Eval Order COVID-19 PCR (Negative)
--- NOTE | 2020-01-20 14:21 | History & Physical Bridge Note ---
Date of Service January 20, 2020 History & Physical Bridge Note I have examined the patient, reviewed the History & Physical and in the interval since the performance of the History & Physical I have noted the following changes of clinical significance: no changes noted EUS/ERCP today for Cholangitis and suspected CBD stone.
[2020-01-20] MEDS ORDERED: IOVERSOL 50ml IV ONE (14:27)
--- NOTE | 2020-01-20 15:01 | Anesthesiology Consultation ---
Date of Service January 20, 2020 Assessment & Plan (1) Encounter for pre-operative examination: Chart Review Chart Review: Acceptable Risk for Surgery and Patient NOT seen in Pre Admission Testing Consults Requested none ASA ASA3 Proposed Anesthesia Anesthesia Type: General Risk / Benefits Reviewed With: PT / POA / Parent / Guardian, Accepts Plan and Informed Consent Obtained History Surgery Operation Date: 01/20/20 09:50 Proposed Procedures p Endoscopic Retrograde Cholangiopancreatogram - Phyllis Marquez MD Height/Weight Height: 5 ft 9 in Weight: 88.45 kg Allergies Allergy/AdvReac Type Severity Reaction Status Date / Time tramadol AdvReac Unknown HIVES Verified 01/19/20 16:35 clotrimazole AdvReac Rash Verified 01/20/20 09:20 Medications Home Medications Medication Instructions Recorded Confirmed Last Taken acetaminophen 500 mg tablet 500 - 1,000 mg PO Q4H PRN 03/05/19 01/19/20 01/19/20 12:00 aspirin 81 mg tablet,delayed 81 mg PO DAILY tab 03/05/19 01/19/20 01/14/20 release ergocalciferol (vitamin D2) 1,250 50,000 units PO MONTHLY #12 cap 05/06/19 01/19/20 01/06/20 mcg (50,000 unit) capsule clonazepam 1 mg tablet 1 mg PO HS PRN #30 tab 06/18/19 01/19/20 Unknown hydroxyzine HCl 10 mg tablet 10 mg PO ONCE PRN tab 07/17/19 01/19/20 Unknown metoprolol succinate 25 mg 37.5 mg PO BID #270 tab 07/17/19 01/19/20 01/19/20 tablet,extended release 24 hr atorvastatin 20 mg tablet 10 mg PO DAILY #45 tab 12/27/19 01/19/20 01/18/20 docusate sodium 100 mg PO DAILY PRN 01/19/20 01/19/20 Unknown omeprazole 20 mg PO DAILY 01/19/20 01/19/20 01/19/20 oxycodone 5 mg PO BID PRN 01/19/20 01/19/20 01/19/20 10:00 Active Medications Generic Name Dose Route Start Last Admin Trade Name Freq PRN Reason Stop Dose Admin Piperacillin Sod/Tazobactam 115 mls @ 28.75 mls/hr 01/19/20 22:00 01/20/20 13:48 Sod 3.375 gm/ Dextrose IV 01/29/20 21:59 28.8 mls/hr Q8H NEDA Administration Protocol Insulin Aspart 0 units 01/19/20 21:00 01/20/20 13:16 Insulin Aspart 100 Units/Ml 3 Ml Pen SC 02/18/20 20:59 Not Given ACHS NEDA Insulin Glargine 0 - 5 units 01/19/20 21:00 01/20/20 08:03 Insulin Glargine Solostar 100 Units/Ml 3 Ml Pen SC 02/18/20 20:59 Not Given BID NEDA Metoprolol Succinate 37.5 mg 01/19/20 21:00 01/20/20 08:24 Metoprolol Succ 25mg Ext Rel Tab PO 02/18/20 20:59 37.5 mg BID NEDA Administration Pantoprazole Sodium 40 mg 01/20/20 09:00 01/20/20 08:24 Pantoprazole 40 Mg Tab PO 02/19/20 08:59 40 mg DAILY NEDA Administration Protocol NPO Date Last Intake of Fluids: 01/20/20 Time Last Intake of Fluids: 07:00 Last Intake of Fluids Comment: Sip of water with pill Date Last Intake of Solids: 01/19/20 Time Last Intake of Solids: 17:00 Past Medical History Medical History AAA (abdominal aortic aneurysm) "stage 4 rare vasculitis s/p AAA repair performed by Dr. Martinez Jerome 02/03/16 " Aneurysm of thoracic aorta Anxiety Basal cell carcinoma (BCC) CAD (coronary artery disease) Chronic kidney disease, stage III (moderate) Dyslipidemia GERD (gastroesophageal reflux disease) History of empyema of pleura History of TIA (transient ischemic attack) Hypertension IgG4 related disease Nephrolithiasis Obstructive sleep apnea Intolerant to CPAP Old myocardial infarct Periodic limb movement disorder Spinal stenosis T2DM (type 2 diabetes mellitus) Vasculitis involving renal artery Vitamin D deficiency Exercise / Class Metabolic Activity II 4-5 Yardwork/Stairs/Walk up hill Past Family History Family History Father Diabetes Other Colorectal cancer Obstructive sleep apnea Past Surgical History Surgical History History of AAA (abdominal aortic aneurysm) repair s/p TEVAR 2016 for 8 cm thoracic aneurysm after prior open repair of 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 History of cholecystectomy 12/2018 History of colostomy History of colostomy reversal ileostomy reversal 10/2018 History of lung surgery Secondary to empyema History of partial colectomy "L hemicolectomy with colostomy 2* mesenteric ischemia s/p vascular surgery 02/03/16" History of thoracic aortic aneurysm repair S/P Mohs surgery for basal cell carcinoma Past Anesthesia History No Hx of Anesthesia Complications and No Family Hx of Anesthesia Complications History of PONV No Hx of PONV and No Hx of Motion Sickness Social History Smoking Status: Former smoker Do You Dip or Chew Tobacco: No Hx Alcohol Use: No Alcohol type: beer alcohol intake frequency: a few times a month Hx Substance Use: No substance use type: does not use Physical Exam Vital Signs Last Vital Signs Temp 36.8 C 01/20/20 14:33 Pulse 82 01/20/20 14:33 Resp 18 01/20/20 14:33 BP 166/96 H 01/20/20 14:33 Pulse Ox 95 01/20/20 14:33 ENMT Mouth: no dentition abnormality Thyromental Distance: > or= 3.5 Finger Breadths Mallampati Class: II Neck normal visual inspection Respiratory normal respiratory effort Auscultation: lungs clear to auscultation bilaterally Cardiovascular Rate/Rhythm: regular rate and regular rhythm Psychiatric Orientation: alert Testing Laboratory Results 01/20/20 07:08 01/20/20 07:08 PT 11.4 Seconds (9.0-12.0) 01/19/20 15:46 INR 1.1 (0.9-1.1) 01/19/20 15:46 APTT 22.6 Seconds (21.0-31.0) 01/19/20 15:46 Hemoglobin A1c 7.5 % (4.5-5.6) H 01/20/20 07:08 Urine Color [place] 01/19/20 17:00 Urine Appearance Clear (Clear) 01/19/20 17:00 Urine pH 6.5 (4.5-7.5) 01/19/20 17:00 Ur Specific [place] 1.015 (1.000-1.030) 01/19/20 17:00 Urine Protein 1+ (Negative) H 01/19/20 17:00 Urine Glucose (UA) Negative (Negative) 01/19/20 17:00 Urine Ketones 2+ (Negative) H 01/19/20 17:00 Urine Nitrite Negative (Negative) 01/19/20 17:00 Ur Leukocyte Esterase Negative (Negative) 01/19/20 17:00 Urine RBC 0-4 /hpf (0-4) 01/19/20 17:00 Urine WBC 0-5 /hpf (0-5) 01/19/20 17:00 Ur Epithelial Cells 0-5 /lpf (0-5) 01/19/20 17:00 01/20/20 01/20/20 01/20/20 14:42 13:03 07:45 POC Glucose 97 109 H 113 H
[2020-01-20] MEDS ORDERED: INDOMETHACIN 50 MG SUPP PR ONE (15:02)
[2020-01-20] MEDS ORDERED: ONDANSETRON INJ 2 MG/ML 2 ML VIAL ONE (15:03)
[2020-01-20] MEDS ORDERED: PROPOFOL IV EMULSION 10 MG/ML 20 ML VIAL IV ONE (15:03)
[2020-01-20] MEDS ORDERED: LIDOCAINE HCL 2% 2 ML VIAL/AMP(20MG/ML) INFIL ONE (15:03)
[2020-01-20] MEDS ORDERED: ROCURONIUM BROMIDE 10 MG/ML 5 ML VIAL IV ONE (15:03)
[2020-01-20] MEDS ORDERED: SUCCINYLCHOLINE CHLORIDE 20 MG/ML 10 ML VIAL IV ONE (15:03)
[2020-01-20] MEDS ORDERED: LARYING-O-JET KIT (LTA) ONE (15:03)
[2020-01-20] MEDS ORDERED: ePHEDrine sulfate 50 MG/ML SYR ONE (15:03)
[2020-01-20] MEDS ORDERED: DEXAMETHASONE SOD INJ 4 MG/ML VIAL ONE (15:03)
[2020-01-20] MEDS ORDERED: MIDAZOLAM HCL 1 MG/ML 2ML VIAL ONE (15:04)
[2020-01-20] MEDS ORDERED: fentaNYL citrate 100 MCG/2 ML VIAL ONE (15:04)
[2020-01-20] MEDS ORDERED: ATROPINE SULFATE 0.1 MG/ML 10ML SYR IV PRN (15:05)
[2020-01-20] MEDS ORDERED: fentaNYL citrate 100 MCG/2 ML VIAL IV PRN (15:05)
[2020-01-20] MEDS ORDERED: ePHEDrine sulfate 50 MG/ML AMP IV PRN (15:05)
[2020-01-20] MEDS ORDERED: ONDANSETRON INJ 2 MG/ML 2 ML VIAL IV PRN (15:05)
--- NOTE | 2020-01-20 16:44 | Operative Report ---
Post Operative Report Pre & Post Diagnosis Operation Date: 01/20/20 09:50 Pre-Op Diagnosis: cholangitis I identified the patient and participated in the time-out.: Yes Procedure Operation Date: 01/20/20 09:50 Actual Procedures p Endoscopic Retrograde Cholangiopancreatogram, esophagogastroduodenoscopy, endoscopic ultrasonography, esophageal dilation, placement of biliary stents x 2(Not Applicable) - Phyllis Marquez MD Surgeon Phyllis Marquez MD [employer] None Estimated Blood Loss 0 Findings See Below (Cholangitis, CBD stones removed, CBD stents placed, Duodenal lipoma biopsied and looped. Large esophageal diverticulum.) Specimens Duodenum Description of Procedure EGD/EUS/ERCP I attest to the content of the Intraoperative Record and any orders documented therein. Any exceptions are noted below.
--- NOTE | 2020-01-20 16:59 | GI REPORT ---
Patient Name: Martinez Joy Procedure Date: 01/20/2020 3:07 PM Date of : 1950 Admit Type: Inpatient Age: 69 Gender: Male Attending MD: Phyllis Marquez MD Procedure: Upper GI endoscopy Providers: Phyllis Marquez MD Referring MD: Jillian Wisdom Do Indications: Dysphagia Medicines: General Anesthesia Complications: No immediate complications. Estimated Blood Loss: Estimated blood loss: none. Procedure: Pre-Anesthesia Assessment: - Prior to the procedure, a History and Physical was performed, and patient medications, allergies and sensitivities were reviewed. The patient's tolerance of previous anesthesia was reviewed. - The risks and benefits of the procedure and the sedation options and risks were discussed with the patient. All questions were answered and informed consent was obtained. - Patient identification and proposed procedure were verified prior to the procedure by the physician and the nurse. The procedure was verified in the procedure room. - Pre-procedure physical examination revealed no contraindications to sedation. After obtaining informed consent, the endoscope was passed under direct vision. Throughout the procedure, the patient's blood pressure, pulse, and oxygen saturations were monitored continuously. The Endoscope was introduced through the mouth, and advanced to the third part of duodenum. The upper GI endoscopy was accomplished without difficulty. The patient tolerated the procedure well. Findings: The Z-line was regular and was found 44 cm from the incisors. A large diverticulum with a large opening was found in the middle third of the esophagus at 36 cm from the incisors. The diverticulum was packed with food. No endoscopic abnormality was evident in the esophagus to explain the patient's complaint of dysphagia. It was decided, however, to proceed with dilation of the entire esophagus. A guidewire was placed and the scope was withdrawn. Dilation was performed with a Savary dilator with no resistance at 45 Fr and 57 Fr. The dilation site was examined following endoscope reinsertion and showed no bleeding, mucosal tear or perforation. The entire examined stomach was normal. A large diverticulum was found in the area of the papilla. Pus noted freely flowing from the Ampulla. There was a large lipoma in the second portion of the duodenum causing luminal narrowing. Biopsies were taken with a cold forceps for histology. Verification of patient identification for the specimen was done by the physician and nurse using the patient's name and date. One ligature (endoloop) was successfully placed for autoamputation. Impression: - Z-line regular, 44 cm from the incisors. - Diverticulum in the middle third of the esophagus. - No endoscopic esophageal abnormality to explain patient's dysphagia. Esophagus dilated. Dilated. - Normal stomach. - Duodenal diverticulum. - Duodenal lipoma. Biopsied. Ligated. Recommendation: - Await pathology results. - Perform an upper endoscopic ultrasound (UEUS) today. Phyllis Marquez MD 01/20/2020 4:58:40 PM This report has been signed electronically. Note Initiated On: 01/20/2020 3:07 PM Number of Addenda: 0 I attest to the content of the Intraoperative Record and orders documented therein, exceptions below {[id number]}
--- NOTE | 2020-01-20 17:02 | GI REPORT ---
Patient Name: Martinez Joy Procedure Date: 01/20/2020 3:07 PM Date of : 1950 Admit Type: Inpatient Age: 69 Gender: Male Attending MD: Phyllis Marquez MD Procedure: Upper EUS Providers: Phyllis Marquez MD Referring MD: Jillian Wisdom Do Indications: Elevated liver enzymes, Suspected choledocholithiasis Medicines: General Anesthesia Complications: No immediate complications. Estimated Blood Loss: Estimated blood loss: none. Procedure: Pre-Anesthesia Assessment: - Prior to the procedure, a History and Physical was performed, and patient medications, allergies and sensitivities were reviewed. The patient's tolerance of previous anesthesia was reviewed. - The risks and benefits of the procedure and the sedation options and risks were discussed with the patient. All questions were answered and informed consent was obtained. - Patient identification and proposed procedure were verified prior to the procedure by the physician and the nurse. The procedure was verified in the procedure room. - Pre-procedure physical examination revealed no contraindications to sedation. After obtaining informed consent, the endoscope was passed under direct vision. Throughout the procedure, the patient's blood pressure, pulse, and oxygen saturations were monitored continuously. The scope was introduced through the mouth, and advanced to the second part of duodenum. The upper EUS was accomplished without difficulty. The patient tolerated the procedure well. Findings: ENDOSONOGRAPHIC FINDING: : There was no sign of significant endosonographic abnormality in the ampulla. No masses were identified. There was dilation in the common bile duct which measured up to 14 mm. Multiple stones were visualized endosonographically in the common bile duct. They were hyperechoic and characterized by shadowing. Evidence of a previous cholecystectomy was identified endosonographically. There was no sign of significant endosonographic abnormality in the visualized portion of the liver. There was no sign of significant endosonographic abnormality in the entire pancreas. The pancreatic duct measured up to 2 mm in diameter. There was no sign of significant endosonographic abnormality involving the celiac trunk. Impression: - There was no sign of significant pathology in the ampulla. - There was dilation in the common bile duct which measured up to 14 mm. - Multiple stones were visualized endosonographically in the common bile duct. - Evidence of a cholecystectomy. - There was no evidence of significant pathology in the visualized portion of the liver. - There was no sign of significant pathology in the entire pancreas. - The celiac trunk was endosonographically normal. Recommendation: - Perform an ERCP today. Phyllis Marquez MD 01/20/2020 5:02:26 PM This report has been signed electronically. Note Initiated On: 01/20/2020 3:07 PM Number of Addenda: 0 I attest to the content of the Intraoperative Record and orders documented therein, exceptions below {[id number]}
--- NOTE | 2020-01-20 17:08 | Fluoroscopy Report ---
[place] ERCP biliary ductal CLINICAL HISTORY: EXPLORE DUCTS COMPARISON STUDY: CT of the abdomen and pelvis January 19, 2020. FLUOROSCOPY TIME: 2 minutes and 14 seconds. FLUOROSCOPIC IMAGES: 9 FINDINGS: Fluoroscopy was provided during ERCP. Common bile duct was cannulated. Possible filling def ect within the distal common bile duct is noted. Balloon sweep through the common bile duct was perfo rmed. The gallbladder is surgically absent. Final image demonstrates placement of biliary stents. Ora l contrast within the colon from prior CT is incidentally noted. IMPRESSION: Fluoroscopy provided during ERCP with biliary stent placement. ACT 112: Negative or not required by law. Electronically signed by: Anson Schafer M.D. 01/20/2020 5:07 PM
--- NOTE | 2020-01-20 17:10 | GI REPORT ---
Patient Name: Martinez Joy Procedure Date: 01/20/2020 2:57 PM Date of : 1950 Admit Type: Inpatient Age: 69 Gender: Male Attending MD: Phyllis Marquez MD Procedure: ERCP Providers: Phyllis Marquez MD Referring MD: Jillian Wisdom Do Indications: Abnormal endoscopic ultrasound of the biliary system, For therapy of bile duct stone(s), For therapy of ascending cholangitis Medicines: General Anesthesia Complications: No immediate complications. Estimated Blood Loss: Estimated blood loss: none. Procedure: Pre-Anesthesia Assessment: - Prior to the procedure, a History and Physical was performed, and patient medications, allergies and sensitivities were reviewed. The patient's tolerance of previous anesthesia was reviewed. - The risks and benefits of the procedure and the sedation options and risks were discussed with the patient. All questions were answered and informed consent was obtained. - Patient identification and proposed procedure were verified prior to the procedure by the physician and the nurse. The procedure was verified in the procedure room. - Pre-procedure physical examination revealed no contraindications to sedation. After obtaining informed consent, the scope was passed under direct vision. Throughout the procedure, the patient's blood pressure, pulse, and oxygen saturations were monitored continuously. The Scope was introduced through the mouth, and advanced to the duodenum and used to inject contrast into the bile duct. The ERCP was accomplished without difficulty. The patient tolerated the procedure well. Findings: A bottom filler film of the abdomen was obtained. Surgical clips, consistent with a previous cholecystectomy, were seen in the area of the right upper quadrant of the abdomen. The esophagus was successfully intubated under direct vision. The scope was advanced to a normal major papilla in the descending duodenum without detailed examination of the pharynx, larynx and associated structures, and upper GI tract. The upper GI tract was grossly normal. The major papilla was on the rim of a diverticulum. Pus was emerging from the major papilla. A 0.035 inch straight standard wire was passed into the biliary tree. The Fusion OMNI sphincterotome was passed over the guidewire and the bile duct was then deeply cannulated. Contrast was injected. I personally interpreted the bile duct images. Ductal flow of contrast was adequate. Image quality was adequate. Contrast extended to the main bile duct. The main bile duct was dilated. The largest diameter was 14 mm. The lower third of the main bile duct contained multiple stones. Biliary sphincterotomy was made with a monofilament traction (standard) sphincterotome using ERBE electrocautery. There was no post-sphincterotomy bleeding. Bile duct orifice was successfully dilated with a 10 mm balloon dilator. The biliary tree was swept with a 15 mm balloon starting at the bifurcation. Sludge was swept from the duct. Many stones were removed. No stones remained. Pus was swept from the duct. One 7 Fr by 7 cm plastic biliary stent with a single external pigtail and a single internal pigtail was placed into the common bile duct. Bile flowed through the stent. The stent was in good position. One 10 Fr by 9 cm plastic biliary stent with a single external flap and a single internal flap was placed into the common bile duct. Bile flowed through the stent. The stent was in good position. Indomethacin 100 mg was given via suppository to decrease the risk of post-ERCP pancreatitis (PEP). PD not cannulated. Impression: - Ascending cholangitis was found. - Choledocholithiasis was found. Complete removal was accomplished by biliary sphincterotomy, balloon sphincteroplasty and balloon extraction. - Two plastic biliary stents were placed into the common bile duct. Recommendation: - [facility]. - Avoid aspirin and nonsteroidal anti-inflammatory medicines for 5 days. - Repeat ERCP in 4 weeks to remove stent. - Complete a 10 days course of Antibiotics upon discharge. Phyllis Marquez MD 01/20/2020 5:10:28 PM This report has been signed electronically. Note Initiated On: 01/20/2020 2:57 PM Number of Addenda: 0 I attest to the content of the Intraoperative Record and orders documented therein, exceptions below {[id number]}
--- NOTE | 2020-01-20 17:27 | Anesthesiology Progress Note ---
Date of Service January 20, 2020 Anesthesia Post Procedure Vital Signs Vital Signs: Temp Pulse Pulse Pulse Resp BP BP 01/20/20 17:20 67 14 01/20/20 17:10 69 16 01/20/20 17:00 75 18 01/20/20 16:54 36.4 C L 76 16 01/20/20 14:33 36.8 C 82 18 166/96 H 01/20/20 12:03 36.5 C 74 20 01/20/20 08:05 36.5 C 68 18 133/75 01/20/20 07:25 56 L 01/20/20 03:47 36.4 C L 70 18 121/78 01/19/20 23:40 36.4 C L 68 18 117/71 01/19/20 20:00 68 01/19/20 18:57 15 01/19/20 18:00 20 01/19/20 17:45 94 H 24 110/63 01/19/20 17:31 18 01/19/20 17:30 101 H 20 118/70 01/19/20 17:28 37.9 C H BP Pulse Ox 01/20/20 17:20 149/78 H 94 01/20/20 17:10 136/93 97 01/20/20 17:00 102/63 97 01/20/20 16:54 139/89 96 01/20/20 14:33 95 01/20/20 12:03 147/78 H 96 01/20/20 08:05 96 01/20/20 07:25 01/20/20 03:47 97 01/19/20 23:40 98 01/19/20 20:00 01/19/20 18:57 01/19/20 18:00 93 01/19/20 17:45 92 01/19/20 17:31 95 01/19/20 17:30 92 01/19/20 17:28 Transfer of Care Handoff Completed per policy Notes Mental Status: alert / awake / arousable and participated in evaluation Patient Amnestic to Procedure: Yes Nausea / Vomiting: adequately controlled Pain: adequately controlled Airway Patency, RR, SpO2: stable & adequate BP & HR: stable & adequate Hydration State: stable & adequate Anesthetic Complications: no major complications apparent and Pt Satisfied with anesthetic care
--- NOTE | 2020-01-20 18:14 | Hospitalist Progress Note ---
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 Patient meets sepsis criteria per current CMS guidelines with fever, tachycardia and leukocytosis. Blood cultures and urine cultures obtained. He received 2 L IVF while in ED along with broad-spectrum IV antibiotics including Rocephin, Levaquin and Zosyn. Source: Suspected cholangitis Fever and tachycardia have improved with above treatment and currently pt has no alteration in mental status. afebrile, leukocytosis improving blood cultures: negative so far for ERCP today continue Zosyn IV (3) T2DM (type 2 diabetes mellitus): Recently diagnosed, A1c 7.8 11/07/2019 Discussed with who states they have not yet met with PCP to discuss treatment options recommend diet, lifestyle modifications when able hold Lantus ISS for now monitor (4) CAD (coronary artery disease): no chest pain/sob on ASA, Statin, metoprolol [place] [facility] (5) Dyslipidemia: hold statin in setting of transminitis (6) Chronic kidney disease, stage III (moderate): Baseline creatinine 1.8 [place]s [facility] avoid nephrotoxic agents monitor (7) Esophageal diverticulum: (+) dysphagia Recent barium swallow revealed large distal esophageal diverticulum Follows [facility] and has scheduled endoscopy 01/21 for EGD (8) Hypertension: Blood pressures stable Continue metoprolol (9) IgG4 related disease: Follows Dr. Donovan Currently no longer on immunosuppressants See detailed history (10) DVT prophylaxis: hold Heparin in light of ERCP Disposition: admit to PCU Follow up: PCP Dr. Brown upon discharge Admission and Anticipated Discharge Date Admission Date: January 19, 2020 Subjective ff up for cholangitis seen resting in chair, comfortable not in distress, in good spirits, oriented x 3 states he feels improved compared to yesterday denies abdominal pain ,nausea/vomiting, chills no chest pain, palpitations, dizziness no other symptoms Review of Systems Review of Systems: All systems reviewed & are unremarkable except as noted in HPI & below Physical Exam Physical Exam: General- oriented x 3, not in distress, speaks in sentences with no effort or accessory muscle use Head- atraumatic Eyes- PERRL, EOMI, anicteric ENT- oropharynx clear Neck- supple, no JVD, no adenopathy, no thyromegaly; carotids +2/2, no bruits appreciated Lungs- clear to auscultation bilaterally, no rales/wheezes Heart- normal rate, regular rhythm; no murmur, no gallop, no rub appreciated Abdomen- normal bowel sounds, nondistended, soft, nontender, no masses or hepatosplenomegaly Extremities- no pretibial edema, no calf tenderness; peripheral pulses intact Neuro- alert, oriented x 3; CN 2-12 grossly intact; motor 5/5 bilaterally;sensation 100% on all extremities; no other gross focal neurologic deficits Skin- warm & dry Results & Data Results & Data ([facility]) Vital Signs (Past 12 Hours) Vital Signs Temp Pulse Pulse Pulse Resp BP BP 01/20/20 17:30 36.4 C L 65 14 136/82 01/20/20 17:20 67 14 149/78 H 01/20/20 17:10 69 16 136/93 01/20/20 17:00 75 18 102/63 01/20/20 16:54 36.4 C L 76 16 139/89 01/20/20 14:33 36.8 C 82 18 166/96 H 01/20/20 12:03 36.5 C 74 20 147/78 H 01/20/20 08:05 36.5 C 68 18 133/75 01/20/20 07:25 56 L Pulse Ox 01/20/20 17:30 95 01/20/20 17:20 94 01/20/20 17:10 97 01/20/20 17:00 97 01/20/20 16:54 96 01/20/20 14:33 95 08/17/20 12:03 96 01/20/20 08:05 96 01/20/20 07:25 Laboratory Results Laboratory Results - last 24 hr 01/19/20 01/19/20 01/19/20 20:10 21:25 21:25 WBC RBC Hgb Hct MCV MCH MCHC RDW Std Deviation RDW Coeff of Justina Plt Count MPV Immature Gran % (Auto) Neut % (Auto) Lymph % (Auto) [place] % (Auto) Eos % (Auto) Baso % (Auto) Neut # (Auto) Lymph # (Auto) [place] # (Auto) Eos # (Auto) Baso # (Auto) Immature Gran # (Auto) Sodium Potassium Chloride Carbon Dioxide Anion Gap BUN Creatinine Est Cr Clr Drug Dosing Est GFR ( Amer) Est GFR (Non-Af Amer) BUN/Creatinine Ratio Glucose POC Glucose 207 H Estimat Average Glucose Hemoglobin A1c Calcium Magnesium Total Bilirubin AST ALT Alkaline Phosphatase Total Protein Albumin Globulin Albumin/Globulin Ratio COVID-19 Eval Order Covid19 Done at [facility] COVID-19 PCR NEGATIVE 01/20/20 01/20/20 01/20/20 07:08 07:08 07:08 WBC 10.98 H RBC 5.33 Hgb 15.1 Hct 46.2 MCV 86.7 MCH 28.3 MCHC 32.7 RDW Std Deviation 46.8 H RDW Coeff of Justina 14.8 H Plt Count 130 MPV 10.8 H Immature Gran % (Auto) 0.3 Neut % (Auto) 80.1 Lymph % (Auto) 8.9 [place] % (Auto) 9.9 Eos % (Auto) 0.7 Baso % (Auto) 0.1 Neut # (Auto) 8.79 H Lymph # (Auto) 0.98 L [place] # (Auto) 1.09 H Eos # (Auto) 0.08 Baso # (Auto) 0.01 Immature Gran # (Auto) 0.03 H Sodium 140 Potassium 4.7 Chloride 112 H Carbon Dioxide 24 Anion Gap 4.0 BUN 20 H Creatinine 1.80 H Est Cr Clr Drug Dosing 43.2 Est GFR ( Amer) 43.8 Est GFR (Non-Af Amer) 37.8 BUN/Creatinine Ratio 10.9 Glucose 122 H POC Glucose Estimat Average Glucose 169 Hemoglobin A1c 7.5 H Calcium 7.8 L Magnesium 1.9 Total Bilirubin 6.0 H AST 165 H ALT 162 H Alkaline Phosphatase 255 H Total Protein 6.0 L Albumin 2.7 L Globulin 3.3 Albumin/Globulin Ratio 0.8 L COVID-19 Eval Order COVID-19 PCR 01/20/20 01/20/20 01/20/20 07:45 13:03 14:42 WBC RBC Hgb Hct MCV MCH MCHC RDW Std Deviation RDW Coeff of Justina Plt Count MPV Immature Gran % (Auto) Neut % (Auto) Lymph % (Auto) [place] % (Auto) Eos % (Auto) Baso % (Auto) Neut # (Auto) Lymph # (Auto) [place] # (Auto) Eos # (Auto) Baso # (Auto) Immature Gran # (Auto) Sodium Potassium Chloride Carbon Dioxide Anion Gap BUN Creatinine Est Cr Clr Drug Dosing Est GFR ( Amer) Est GFR (Non-Af Amer) BUN/Creatinine Ratio Glucose POC Glucose 113 H 109 H 97 Estimat Average Glucose Hemoglobin A1c Calcium Magnesium Total Bilirubin AST ALT Alkaline Phosphatase Total Protein Albumin Globulin Albumin/Globulin Ratio COVID-19 Eval Order COVID-19 PCR 01/20/20 01/20/20 16:59 17:40 WBC RBC Hgb Hct MCV MCH MCHC RDW Std Deviation RDW Coeff of Justina Plt Count MPV Immature Gran % (Auto) Neut % (Auto) Lymph % (Auto) [place] % (Auto) Eos % (Auto) Baso % (Auto) Neut # (Auto) Lymph # (Auto) [place] # (Auto) Eos # (Auto) Baso # (Auto) Immature Gran # (Auto) Sodium Potassium Chloride Carbon Dioxide Anion Gap BUN Creatinine Est Cr Clr Drug Dosing Est GFR ( Amer) Est GFR (Non-Af Amer) BUN/Creatinine Ratio Glucose POC Glucose 142 H 140 H Estimat Average Glucose Hemoglobin A1c Calcium Magnesium Total Bilirubin AST ALT Alkaline Phosphatase Total Protein Albumin Globulin Albumin/Globulin Ratio COVID-19 Eval Order COVID-19 PCR
[2020-01-20] MEDS: clonazePAM 1 MG TAB PO PRN (21:09)
[2020-01-21] MEDS: PIPERACILLIN/TAZOBACTAM 3.375 GM in DEXTROSE 5% 100 ML IV SCH ×3 (05:41→21:05)
[2020-01-21 06:40] LABS: Creatinine Clr Calc Pharmacy 43.7 ml/min; Est GFR (African American) 44.1; Est GFR (Non-African American) 38.1
[2020-01-21] MEDS: METOPROLOL SUCC 25MG EXT REL TAB PO SCH ×2 (08:18→21:04)
[2020-01-21] MEDS: PANTOprazole 40 MG TAB PO SCH (08:18)
[2020-01-21] MEDS: INSULIN ASPART 100 UNITS/ML 3 ML PEN SC SCH ×4 (08:19→21:23)
--- NOTE | 2020-01-21 08:38 | Gastroenterology Progress Note ---
Date of Service January 21, 2020 Assessment & Plan (1) Ascending cholangitis: S/P EGD/EUS/ERCP w/ evidence of retained stones, cholangitis s/p stent placement clinically feeling well. Morning LFTs pending [facility]. Avoid aspirin and nonsteroidal anti-inflammatory medicines for 5 days. Repeat ERCP in 4 weeks to remove stent. Complete a 10 days course of Antibiotics upon discharge. Trend LFTs Can advance diet today if clinically feeling well Will sign off. Thank you for allowing us to participate in the care of this patient. Please call with any acute changes, questions or concerns. Please see addendum below with additional recommendation from my supervising physician. Admission and Anticipated Discharge Date Admission Date: January 19, 2020 Supervising Physician Co-Signing Physician Notes I have seen and examined the patient with DARCY Brennan whose note reflects our findings and plan. ERCP yesterday. LFTs improving. Subjective S/P EGD/EUS/ERCP Feeling well this AM Tolerating clear liquids Morning labs are pending Remains on ABX EGD: Z-line regular, 44 cm from the incisors. - Diverticulum in the middle third of the esophagus. - No endoscopic esophageal abnormality to explain patient's dysphagia. Esophagus dilated. Dilated. - Normal stomach. - Duodenal diverticulum. - Duodenal lipoma. Biopsied. Ligated EUS: There was no sign of significant pathology in the ampulla. - There was dilation in the common bile duct which measured up to 14 mm. - Multiple stones were visualized endosonographically in the common bile duct. - Evidence of a cholecystectomy. - There was no evidence of significant pathology in the visualized portion of the liver. - There was no sign of significant pathology in the entire pancreas. - The celiac trunk was endosonographically normal ERCP: Ascending cholangitis was found. - Choledocholithiasis was found. Complete removal was accomplished by biliary sphincterotomy, balloon sphincteroplasty and balloon extraction. - Two plastic biliary stents were placed into the common bile duct. Review of Systems Constitutional: no fever and no chills Respiratory: no cough and no dyspnea Cardiovascular: no chest pain and no dyspnea Gastrointestinal: no abdominal pain, no coffee ground emesis, no hematemesis, no change in bowel habits, no blood in stools and no melena Physical Exam Constitutional: well developed and well nourished; no acute distress Neck: trachea midline Respiratory: normal respiratory effort Cardiovascular: Rate/Rhythm: regular rate Gastrointestinal (Abdomen): Percussion/Palpation: abdomen soft; abdomen nontender, no guarding and abdomen not rigid Skin: no rashes, warm and dry Results & Data ([facility]) Vital Signs (Past 12 Hours) Vital Signs Temp Pulse Pulse Resp BP Pulse Ox 01/21/20 08:24 36.3 C L 58 L 18 136/76 96 01/21/20 07:32 60 01/21/20 02:47 36.4 C L 56 L 18 150/76 H 94 01/21/20 00:00 71 01/20/20 23:15 36.5 C 58 L 18 157/92 H 95 Laboratory Results 01/21/20 01/21/20 01/20/20 Range/Units 07:21 05:31 20:20 Sodium (136-145) mmol/L Potassium (3.5-5.1) mmol/L Chloride (98-107) mmol/L Carbon Dioxide (21-32) mmol/L Anion Gap (3-11) BUN (7-18) mg/dl Creatinine 1.79 H (0.6-1.4) mg/dl Est Cr Clr Drug Dosing 43.7 ml/min Est GFR ( Amer) 44.1 Est GFR (Non-Af Amer) 38.1 BUN/Creatinine Ratio (10-20) Glucose (70-99) mg/dl POC Glucose 195 H 257 H (70-99) mg/dl Estimat Average Glucose mg/dl Hemoglobin A1c (4.5-5.6) % Calcium (8.5-10.1) mg/dl Magnesium (1.8-2.4) mg/dl Total Bilirubin (0.2-1) mg/dl AST (15-37) U/L ALT (12-78) U/L Alkaline Phosphatase (45-117) U/L Total Protein (6.4-8.2) gm/dl Albumin (3.4-5.0) gm/dl Globulin (2.5-4.0) gm/dl Albumin/Globulin Ratio (0.9-2) 01/20/20 01/20/20 01/20/20 Range/Units 17:40 16:59 14:42 Sodium (136-145) mmol/L Potassium (3.5-5.1) mmol/L Chloride (98-107) mmol/L Carbon Dioxide (21-32) mmol/L Anion Gap (3-11) BUN (7-18) mg/dl Creatinine (0.6-1.4) mg/dl Est Cr Clr Drug Dosing ml/min Est GFR ( Amer) Est GFR (Non-Af Amer) BUN/Creatinine Ratio (10-20) Glucose (70-99) mg/dl POC Glucose 140 H 142 H 97 (70-99) mg/dl Estimat Average Glucose mg/dl Hemoglobin A1c (4.5-5.6) % Calcium (8.5-10.1) mg/dl Magnesium (1.8-2.4) mg/dl Total Bilirubin (0.2-1) mg/dl AST (15-37) U/L ALT (12-78) U/L Alkaline Phosphatase (45-117) U/L Total Protein (6.4-8.2) gm/dl Albumin (3.4-5.0) gm/dl Globulin (2.5-4.0) gm/dl Albumin/Globulin Ratio (0.9-2) 01/20/20 01/20/20 01/20/20 Range/Units 13:03 07:08 07:08 Sodium 140 (136-145) mmol/L Potassium 4.7 (3.5-5.1) mmol/L Chloride 112 H (98-107) mmol/L Carbon Dioxide 24 (21-32) mmol/L Anion Gap 4.0 (3-11) BUN 20 H (7-18) mg/dl Creatinine 1.80 H (0.6-1.4) mg/dl Est Cr Clr Drug Dosing 43.2 ml/min Est GFR ( Amer) 43.8 Est GFR (Non-Af Amer) 37.8 BUN/Creatinine Ratio 10.9 (10-20) Glucose 122 H (70-99) mg/dl POC Glucose 109 H (70-99) mg/dl Estimat Average Glucose 169 mg/dl Hemoglobin A1c 7.5 H (4.5-5.6) % Calcium 7.8 L (8.5-10.1) mg/dl Magnesium 1.9 (1.8-2.4) mg/dl Total Bilirubin 6.0 H (0.2-1) mg/dl AST 165 H (15-37) U/L ALT 162 H (12-78) U/L Alkaline Phosphatase 255 H (45-117) U/L Total Protein 6.0 L (6.4-8.2) gm/dl Albumin 2.7 L (3.4-5.0) gm/dl Globulin 3.3 (2.5-4.0) gm/dl Albumin/Globulin Ratio 0.8 L (0.9-2)
[2020-01-21 09:15] LABS: Eosinophils # (auto) 0.01 K/uL (0-0.5); Eosinophils % (auto) 0.1 %; Hematocrit (blood only) 46.3 % (42-52); Hemoglobin 15.2 g/dL (14.0-18.0); Immature Granulocytes # (auto) 0.02 K/uL (0.00-0.02); Immature Granulocytes % (auto) 0.2 %; Lymphocytes # (auto) 0.83 K/uL (1.2-3.4); Lymphocytes % (auto) 8.6 %; Mean Corpuscular Hgb Conc 32.8 g/dL (32-36); Mean Corpuscular Volume 88.2 fL (80-100); Mean Platelet Volume 11.1 fL (7.4-10.4); Monocytes % (auto) 7.2 %; Neutrophils # (auto) 8.13 K/uL (1.4-6.5); Neutrophils % (auto) 83.9 %; Platelet Count 147 K/uL (130-400); RDW Coefficient of Variation 14.8 % (11.5-14.5); RDW Standard Deviation 47.7 fL (36.4-46.3); Red Blood Count 5.25 M/uL (4.7-6.1); White Blood Count 9.69 K/uL (4.8-10.8)
[2020-01-21 09:26] LABS: Albumin Level 2.8 gm/dl (3.4-5.0); BUN Creatinine Ratio 12.2 (10-20); Bilirubin Direct 2.1 mg/dl (0-0.2); Calcium 8.4 mg/dl (8.5-10.1); Creatinine Clr Calc Pharmacy 42.5 ml/min; Est GFR (African American) 42.7; Est GFR (Non-African American) 36.8; Potassium 5.1 mmol/L (3.5-5.1)
[2020-01-21 09:30] LABS: Bilirubin,Total 3.1 mg/dl (0.2-1); Total Protein 6.4 gm/dl (6.4-8.2)
[2020-01-21] MEDS: SODIUM CHLORIDE 0.9% 1000ML 1,000 ML IV SCH (10:58)
--- NOTE | 2020-01-21 19:13 | Hospitalist Progress Note ---
Date of Service January 21, 2020 Assessment & Plan (1) Sepsis: (2) Ascending cholangitis: (3) Choledocholithiasis: 69-year-old male with history of CAD, hypertension, CKD stage III, IgG4 disease, Presenting with confusion abdominal pain x1 day. In summary, the patient was found to be septic secondary to ascending cholangitis. ERCP performed, with removal of choledocholithiasis, and biliary stent placement. Patient given IV Zosyn with resolution of sepsis. Diet advanced, IV Zosyn continued. Plan to discharge tomorrow on oral Augmentin x7 more days to complete 10 days of therapy. Follow-up with GI in 4 weeks for removal of biliary stent. 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 01/20/2020: Status post ERCP : Positive ascending cholangitis, positive choledocholithiasis with complete removal by biliary sphincterectomy, status post placement of 2 biliary stents in the common bile duct Blood cultures: Negative so far, follow-up Significantly better, mental status back to baseline Afebrile, Leukocytosis resolved Advance diet to soft diet today Discharge on Augmentin twice daily x7 more days to complete 10 days of therapy Follow-up with GI in 4 weeks for removal of biliary stent. Follow-up with PCP in 1 week. (3) T2DM (type 2 diabetes mellitus): Recently diagnosed A1c 7.5 Discussed with who states they have not yet met with PCP to discuss treatment options recommend diet, lifestyle modifications when able ISS for now Follow-up with PCP for further discussion regarding medication regimen (4) CAD (coronary artery disease): no chest pain/sob on ASA, Statin, metoprolol follows [facility] Cardiology Start aspirin on January 25, 2020 per GI recommendations (5) Dyslipidemia: hold statin in setting of transaminitis Follow-up with PCP regarding restarting of statin (6) Chronic kidney disease, stage III (moderate): Baseline creatinine 1.8 Follows [facility] Nephrology avoid nephrotoxic agents Stable (7) Esophageal diverticulum, Dysphagia (+) dysphagia Recent barium swallow revealed large distal esophageal diverticulum Status post EGD: Status post EGD: Impression: - Z-line regular, 44 cm from the incisors. - Diverticulum in the middle third of the esophagus. - No endoscopic esophageal abnormality to explain patient's dysphagia. Esophagus dilated. Dilated. - Normal stomach. - Duodenal diverticulum. - Duodenal lipoma. Biopsied. Ligated. Recommendation: - Await pathology results. Speech therapy evaluation: Pending (8) Hypertension: Blood pressures stable Continue metoprolol (9) IgG4 related disease: Follows Dr. Donovan Currently no longer on immunosuppressants (10) DVT prophylaxis: hed Heparin in light of ERCP Disposition: Discharge home tomorrow when medically stable Follow-up with PCP in 1 week Follow-up with GI in 4 weeks for biliary stent removal Admission and Anticipated Discharge Date Admission Date: January 19, 2020 Subjective Follow-up for cholangitis, choledocholithiasis, status post ERCP Seen sitting up in bed, comfortable, in good spirits, alert, oriented x3 Patient's visiting at the bedside States he feels much better overall Had clear liquids for breakfast, tolerated well, no abdominal pain, no nausea vomiting, no fevers or chills No chest pain, palpitations, dizziness Ambulated in the hallways today with no problems Patient requesting to advance his diet No other symptom Review of Systems Review of Systems: All systems reviewed & are unremarkable except as noted in HPI & below Physical Exam Physical Exam: General- oriented x 3, not in distress, speaks in sentences with no effort or accessory muscle use Eyes- anicteric Neck- no JVD Lungs- clear breath sounds bilaterally, no rales/wheezes Heart- normal rate, regular rhythm; no murmurs Abdomen- normal bowel sounds, nondistended, soft, nontender No Lozano's sign Extremities- no pretibial edema, no calf tenderness Neuro- alert, oriented x 3; no gross focal neurologic deficits Skin- warm & dry Results & Data Results & Data ([facility]) Vital Signs (Past 12 Hours) Vital Signs Temp Pulse Pulse Resp BP BP Pulse Ox 01/21/20 16:00 52 L 01/21/20 15:59 36.6 C 53 L 18 125/72 99 01/21/20 12:02 36.4 C L 60 18 166/90 H 97 01/21/20 08:24 36.3 C L 58 L 18 136/76 96 01/21/20 07:32 60 Laboratory Results Laboratory Results - last 24 hr 01/20/20 01/21/20 01/21/20 20:20 05:31 05:35 WBC 9.69 RBC 5.25 Hgb 15.2 Hct 46.3 MCV 88.2 MCH 29.0 MCHC 32.8 RDW Std Deviation 47.7 H RDW Coeff of Justina 14.8 H Plt Count 147 MPV 11.1 H Immature Gran % (Auto) 0.2 Neut % (Auto) 83.9 Lymph % (Auto) 8.6 Stark % (Auto) 7.2 Eos % (Auto) 0.1 Baso % (Auto) 0.0 Neut # (Auto) 8.13 H Lymph # (Auto) 0.83 L Stark # (Auto) 0.70 H Eos # (Auto) 0.01 Baso # (Auto) 0.00 Immature Gran # (Auto) 0.02 Sodium Potassium Chloride Carbon Dioxide Anion Gap BUN Creatinine 1.79 H Est Cr Clr Drug Dosing 43.7 Est GFR ( Amer) 44.1 Est GFR (Non-Af Amer) 38.1 BUN/Creatinine Ratio Glucose POC Glucose 257 H Calcium Total Bilirubin Direct Bilirubin AST ALT Alkaline Phosphatase Total Protein Albumin 01/21/20 01/21/20 01/21/20 05:35 07:21 11:26 WBC RBC Hgb Hct MCV MCH MCHC RDW Std Deviation RDW Coeff of Justina Plt Count MPV Immature Gran % (Auto) Neut % (Auto) Lymph % (Auto) Stark % (Auto) Eos % (Auto) Baso % (Auto) Neut # (Auto) Lymph # (Auto) Stark # (Auto) Eos # (Auto) Baso # (Auto) Immature Gran # (Auto) Sodium 139 Potassium 5.1 Chloride 110 H Carbon Dioxide 22 Anion Gap 7.0 BUN 23 H Creatinine 1.84 H Est Cr Clr Drug Dosing 42.5 Est GFR ( Amer) 42.7 Est GFR (Non-Af Amer) 36.8 BUN/Creatinine Ratio 12.2 Glucose 199 H POC Glucose 195 H 203 H Calcium 8.4 L Total Bilirubin 3.1 H Direct Bilirubin 2.1 H AST 116 H ALT 158 H Alkaline Phosphatase 219 H Total Protein 6.4 Albumin 2.8 L 01/21/20 16:37 WBC RBC Hgb Hct MCV MCH MCHC RDW Std Deviation RDW Coeff of Justina Plt Count MPV Immature Gran % (Auto) Neut % (Auto) Lymph % (Auto) Stark % (Auto) Eos % (Auto) Baso % (Auto) Neut # (Auto) Lymph # (Auto) Stark # (Auto) Eos # (Auto) Baso # (Auto) Immature Gran # (Auto) Sodium Potassium Chloride Carbon Dioxide Anion Gap BUN Creatinine Est Cr Clr Drug Dosing Est GFR ( Amer) Est GFR (Non-Af Amer) BUN/Creatinine Ratio Glucose POC Glucose 143 H Calcium Total Bilirubin Direct Bilirubin AST ALT Alkaline Phosphatase Total Protein Albumin (1) Sepsis Sepsis acute organ dysfunction status: unspecified Sepsis type: sepsis due to unspecified organism Qualified Code(s): A41.9 - Sepsis, unspecified organism
[2020-01-21] MEDS: clonazePAM 1 MG TAB PO PRN (23:34)
[2020-01-22] MEDS: PIPERACILLIN/TAZOBACTAM 3.375 GM in DEXTROSE 5% 100 ML IV SCH (06:19)
[2020-01-22 07:12] LABS: Albumin Level 2.7 gm/dl (3.4-5.0); Bilirubin Direct 0.6 mg/dl (0-0.2); Calcium 7.9 mg/dl (8.5-10.1); Creatinine Clr Calc Pharmacy 38.7 ml/min; Est GFR (African American) 38.1; Est GFR (Non-African American) 32.9; Potassium 4.6 mmol/L (3.5-5.1)
[2020-01-22 07:15] LABS: Bilirubin,Total 1.3 mg/dl (0.2-1); Total Protein 6.3 gm/dl (6.4-8.2)
--- NOTE | 2020-01-22 08:06 | Discharge Summary ---
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 Patient admits last evening he had episode of epigastric abdominal pain which was severe. He admits he is to undergo EGD in 4 days secondary to barium swallow revealing large diverticulum. Patient has been having dysphagia of mostly meats. He was camping last evening and secondary to epigastric pain he opted to come home. Symptoms resolved and this morning he was feeling well until approximately noon when he developed significant right upper quadrant abdominal pain and chills. He took temp which was 100.4. Symptoms progressed and states he became confused, lost control of his bowels and his temperature recheck was 105 Fahrenheit. concerned for possible aspiration PNA due to him occasionally having excess secretions due to difficulty swallowing. He admits to having intermittent right upper quadrant pain for the past month. Pain was not related to meals, would come and go. Today he tried [id number] Tylenol, leftover oxycodone from prior cholecystectomy with minimal relief. Currently upon my evaluation patient has improved as he is alert and oriented and mental status is no longer altered. has noticed significant improvement. He continues to complain of fever, chills, sweats and intermittent right upper quadrant abdominal pain. Currently he is pain-free. He also admits to nausea and dry heaves earlier today. His last BM was approximately 3 days ago and he does have intermittent constipation for which he takes Colace for. His appetite has otherwise been diminished secondary to his difficulty swallowing. He denies any syncope, chest pain, shortness breath, cough, hemoptysis, hematemesis, diarrhea, melena, medic easier, dysuria, increased urgency or frequency with urination. In ED patient met sepsis criteria per current CMS guidelines with fever and tachycardia. T-max was 39.1. Lab work notable for leukocytosis 15.11k with predominant neutrophilia, transaminitis AST 248, ALT 164, alk phos 430, total bili 5.4, BUN 21, creatinine 1.97. Urinalysis revealed +2 ketones, urobilinogen, positive bilirubin and trace blood. CT Scan abd/pelvis: 1. Limited exam secondary to retained enteric contrast within the large bowel resulting in streak artifact. This is from the patient's recent upper GI series. 2. Retained enteric contrast is also present within a focal area of saccular dilation involving the mid to distal esophagus. Additionally, there is moderate wall of the distal esophagus with resultant luminal narrowing. These findings should be correlated with follow-up endoscopy. 3. No bowel obstruction.4. Fusiform aneurysmal dilation of the abdominal aorta. Additionally, there is a partially calcified rind of soft tissue density surrounding the abdominal aorta. In retrospect, this appears to be similar to the 2016 study and is suggestive of retroperitoneal fibrosis. Collateral vessels are also noted within the retroperitoneum. 5. Prostamegaly with probable chronic bladder outlet obstruction. CXR: w/o acute abnormality. In ED he received 2 L of IVF, IV antibiotics with 1 g ceftriaxone, 750 mg Levaquin and 1.5 g of Zosyn. He also received 1 g of oral Tylenol. Admission Exam Per Admitting Provider Constitutional: WD/WN, male, vitals as above, NAD, sitting up in bed, pleasant, conversing easily Head: Normocephalic, Atraumatic Eyes: PERRL, conjunctivae normal, anicteric sclerae ENMT: external ear and nose normal, oropharynx normal Neck: trachea midline, no thyromegaly normal visual inspection Respiratory: normal respiratory effort, lungs clear to auscultation, no wheeze, rales, rhonchi. Normal insp/exp effort, no accessory muscle use Cardiovascular: Mildly tachycardic, regular rhythm, no murmur, no edema Vessels: no JVD or carotid bruit Chest: normal inspection of chest, left posterior chest wall scar secondary to prior lung surgery Abdomen: Decreased bowel sounds, soft, nontender, no hepatosplenomegaly Musculoskeletal: no cyanosis or clubbing, extremities motor strength 5/5 Skin: no rashes, warm and dry normal turgor Neurologic: PERRL, EOMI, accommodation nl, no face palsy, no dysarthria CN's II-XI intact bilaterally and moves all extremities Psychiatric: A+Ox3, euthymic affect Lymphatic: no cervical or axillary lymphadenopathy : deferred Principal Diagnosis (1) Sepsis: (2) Ascending cholangitis: (3) Choledocholithiasis: (4) T2DM (type 2 diabetes mellitus): (5) CAD (coronary artery disease): (6) Dyslipidemia: (7) Esophageal diverticulum, Dysphagia (8) Hypertension: (9) IgG4 related disease: (10) Chronic kidney disease, stage III (moderate): Discharge Exam ROS-No Headache, No Visual Changes, No Nausea, No Vomiting, No Fever, No Chills, No Neck Pain or Stiffness, No Chest Pain, No Palpitations, No SOB, No CHI, No Cough, No Sputum, No Wheezing, No Abdominal Pain, No Diarrhea, No Hematemesis, No Hemoptysis, No Unexpected Weight Loss, No Flank pain, No Melena, No Hematochezia, No Frequency, No Urgency, No Burning, No Hematuria, No Rashes, No Diaphoresis. Appetite is Normal Physical Exam Gen-AAO x 3, NAD, Afebrile Head-NCAT, EOMI, PERRLA, Anicteric Sclera, No Posterior Pharyngeal Erythema Neck-Supple, No JVD, No Thyromegaly, No Masses, No LAD, No Bruits Lungs-Clear to Auscultation Bilaterally, No Rales, No Rhonchi, No Wheezing, No Crepitus Chest-No S4, +S1, +S2, No S3, No Murmurs, No Rubs, No Gallops, No Ectopy Abdomen-Soft, Bowel Sounds Present, Non Tender, Non Distended, No Hepatomegaly, No Splenomegaly, No Palpable Masses, No Rebound, No Rigidity, No Guarding Musculoskeletal-Full Range of Motion Bilaterally, No CVAT Extremities-No Cyanosis, No Clubbing, No Edema Nuero-Cranial Nerves II-XII grossly intact, Motor WNL, DTRs WNL, Strength WNL, Non Focal Psych-Normal Mood Discharge Data Allergies Allergy/AdvReac Type Severity Reaction Status Date / Time tramadol AdvReac Unknown HIVES Verified 08/16/20 16:35 clotrimazole AdvReac Rash Verified 01/20/20 09:20 Consultations 01/19/20 17:12 ED Decision to Admit Stat 01/19/20 17:52 Consult Gastroenterology Routine Procedures Performed Operation Date: 01/20/20 09:50 Actual Procedures p Endoscopic Retrograde Cholangiopancreatogram, (Not Applicable) - Phyllis Marquez MD s Esophagogastroduodenoscopy(Not Applicable) - Phyllis Marquez MD s endoscopic ultrasonography, esophageal dilation, placement of biliary stents x 2, sphincterotomy(Not Applicable) - Phyllis Marquez MD Ordered Studies 01/19/20 16:03 CT abd pelvis wo con Stat 01/20/20 14:30 FL ERCP biliary ductal Routine 01/20/20 15:06 US upper EUS PACS images Routine Current Diagnoses Sepsis, unspecified organism (01/19/20) Other specified disorders involving the immune mechanism, not elsewhere classified (01/19/20) Type 2 diabetes mellitus without complications (01/19/20) Hyperlipidemia, unspecified (01/19/20) Essential (primary) hypertension (01/19/20) Atherosclerotic heart disease of [place] coronary artery without angina pectoris (01/19/20) Calculus of bile duct without cholangitis or cholecystitis without obstruction (01/19/20) Other cholangitis (01/19/20) Chronic kidney disease, stage 3 (moderate) (01/19/20) Congenital diverticulum of esophagus (01/19/20) Nonspecific elevation of levels of transaminase and lactic acid dehydrogenase [LDH] (01/19/20) Encounter for other preprocedural examination (01/19/20) Encounter for prophylactic measures, unspecified (01/19/20) Allergies tramadol Adverse Reaction (Unknown, Verified 01/19/20 16:35) HIVES clotrimazole Adverse Reaction (Verified 01/20/20 09:20) Rash Height/Weight/Isolation Height 5 ft 9 in Weight 89.4 kg Chemistry 01/20/20 01/21/20 01/21/20 07:08 05:31 05:35 Sodium 140 139 Potassium 4.7 5.1 Chloride 112 H 110 H Carbon Dioxide 24 22 Anion Gap 4.0 7.0 BUN 20 H 23 H Creatinine 1.80 H 1.79 H 1.84 H Glucose 122 H 199 H 01/22/20 06:18 Sodium 142 Potassium 4.6 Chloride 114 H Carbon Dioxide 24 Anion Gap 4.0 BUN 22 H Creatinine 2.02 H Glucose 150 H Microbiology 01/19/20 15:38 Blood Aerobic Blood Culture - Preliminary No growth in Aerobic bottle after 48 hours. 01/19/20 15:38 Blood Anaerobic Blood Culture - Preliminary No growth in Anaerobic bottle after 48 hours. 01/19/20 15:45 Blood Aerobic Blood Culture - Preliminary No growth in Aerobic bottle after 48 hours. 01/19/20 15:45 Blood Anaerobic Blood Culture - Final Diabetes Follow up Diabetes Follow-up Needed for Newly Diagnosed Diabetes Hospital Course (1) Sepsis: (2) Ascending cholangitis: (3) Choledocholithiasis: 69-year-old male with history of CAD, hypertension, CKD stage III, IgG4 disease, Presenting with confusion abdominal pain x1 day. In summary, the patient was found to be septic secondary to ascending cholangitis. ERCP performed, with removal of choledocholithiasis, and biliary stent placement. Patient given IV Zosyn with resolution of sepsis. Diet advanced, IV Zosyn continued. Discharge today on oral Augmentin x7 more days to complete 10 days of therapy. Follow-up with GI in 4 weeks for removal of biliary stent. 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 01/20/2020: Status post ERCP : Positive ascending cholangitis, positive choledocholithiasis with complete removal by biliary sphincterectomy, status post placement of 2 biliary stents in the common bile duct Blood cultures: Negative so far, follow-up Significantly better, mental status back to baseline Afebrile, Leukocytosis resolved Advance diet to soft diet today Discharge on Augmentin twice daily x7 more days to complete 10 days of therapy Follow-up with GI in 4 weeks for removal of biliary stent. Follow-up with PCP in 1 week. (3) T2DM (type 2 diabetes mellitus): Recently diagnosed A1c 7.5 Discussed with who states they have not yet met with PCP to discuss treatment options recommend diet, lifestyle modifications when able ISS for now Follow-up with PCP for further discussion regarding medication regimen (4) CAD (coronary artery disease): no chest pain/sob on ASA, Statin, metoprolol follows [facility] Start aspirin on January 25, 2020 per GI recommendations (5) Dyslipidemia: hold statin in setting of transaminitis Follow-up with PCP regarding restarting of statin (6) Chronic kidney disease, stage III (moderate): Baseline creatinine 1.8 Follows [facility]ph[facility] (7) Esophageal diverticulum, Dysphagia (+) dysphagia Recent barium swallow revealed large distal esophageal diverticulum Status post EGD: Status post EGD: Impression: - Z-line regular, 44 cm from the incisors. - Diverticulum in the middle third of the esophagus. - No endoscopic esophageal abnormality to explain patient's dysphagia. Esophagus dilated. Dilated. - Normal stomach. - Duodenal diverticulum. - Duodenal lipoma. Biopsied. Ligated. Recommendation: - f/u GI for pathology results. (8) Hypertension: Blood pressures stable Metoprolol (9) IgG4 related disease: Follows Dr. Donovan Currently no longer on immunosuppressants (10) DVT prophylaxis: hed Heparin in light of ERCP Disposition: Discharge home today Follow-up with PCP in 1 week Follow-up with GI in 4 weeks for biliary stent removal Total Time Total Time Spent Total Time Spent (In Minutes): 45 mins Total Time Includes: Examination of the Patient, Discharge Planning, Medication Reconciliation and Communication With Other Providers Discharge Plan Discharge Items Patient Disposition: Home - Self-Care Reason For Visit: SUSPECTED CHOLANGITIS Discharge Diagnosis: SEPSIS SECONDARY TO ASCENDING CHOLANGITIS, BILIARY DUCT STONE STATUS POST ERCP, BILIARY STENT PLACEMENT (1) Sepsis: (2) Ascending cholangitis: (3) Choledocholithiasis: (4) T2DM (type 2 diabetes mellitus): (5) CAD (coronary artery disease): (6) Dyslipidemia: (7) Esophageal diverticulum, Dysphagia (8) Hypertension: (9) IgG4 related disease: (10) Chronic kidney disease, stage III (moderate): Condition on Discharge: Good Activity: Resume your previous activity Activity Comment: Gradually as tolerated Lifting: Wait until after follow-up appointment Bathing: No limitations Sexual Activity: When tolerated Exercise/Sports: Wait until after follow-up appointment Driving/Machine Use: No limitations Weightbearing: Full weightbearing Non-emergency contact: Primary Care Provider and Poultry Husbandry Teacher Call non-emergency contact if: you have any medication questions, your symptoms worsen, your pain is not controlled, your pain is worsening, your pain is unusual for you, your pain is concerning for you and you have a fever Follow-up/Referrals: Isidoro Brown MD [Primary Care Provider] - Phyllis Marquez MD [Hospitalist] - Diet: Carb Consistent or DM2, Heart Healthy and Low Fiber Addtl Attending Provider Instructions: Your new medication is Augmentin, antibiotic for cholangitis. Take a probiotic daily for at least 3 weeks. Hold aspirin for now. Resume aspirin on January 25, 2020. Do not take NSAIDs including ibuprofen, naproxen, etc. Hold atorvastatin for now. Discuss with primary care physician on when to resume atorvastatin, pending repeat liver function test. Drink plenty of fluids. Ambulate frequently. Please call primary care physician or supervisor dimension warehouse, or return to the ER immediately if with worsening of symptoms, Including abdominal pain, fevers or chills, altered mental status, nausea/vomiting. Follow-up with Dr. Brown in 1 week as outlined above. Follow-up with [facility] gastroenterology clinic in 4 weeks for removal of biliary stent. Pending Studies at Discharge: Yes Studies:: Repeat liver function test on follow-up with PCP next week. Stand-Alone Forms: My [employer], Smoking Cessation Medications and DC Order Prescriptions: New amoxicillin-pot clavulanate [Augmentin] 875-125 mg tablet 1 tab PO Q12H Qty: 20 RF: 0 Continued acetaminophen [Tylenol Extra Strength] 500 mg tablet 500 - 1,000 mg PO Q4H PRN (Reason: Fever Or Pain) RF: 0 ergocalciferol (vitamin D2) 50,000 unit capsule 50,000 units PO MONTHLY Qty: 12 RF: 0 hydroxyzine HCl 10 mg tablet 10 mg PO ONCE PRN (Reason: Itching) RF: 0 metoprolol succinate 25 mg tablet extended release 24 hr 37.5 mg PO BID Qty: 270 RF: 3 clonazepam 1 mg tablet 1 mg PO HS PRN (Reason: sleep) Qty: 30 RF: 5 omeprazole 20 mg capsule,delayed release(DR/EC) 20 mg PO DAILY RF: 0 oxycodone 5 mg Tablet 5 mg PO BID PRN (Reason: Pain) RF: 0 docusate sodium 100 mg Tablet 100 mg PO DAILY PRN (Reason: Constipation) RF: 0 Discontinued atorvastatin 20 mg tablet 10 mg PO DAILY Qty: 45 RF: 3 aspirin 81 mg tablet,delayed release (DR/EC) 81 mg PO DAILY RF: 0 Discharge Orders: Discharge Order (Routine); Ordered 01/22/20 Ordered By: Edin Avila/Other Patient Handouts: Managing Type 2 Diabetes, Diabetes: Meal Planning, Eating Heart-Healthy Foods, A1C Admission Data Admit Date/Time: 01/19/20 17:52 Attending Provider: Edin Barfield Admit Provider: Jillian Wisdom Primary Care Provider: Isidoro Brown Other Providers: Jillian Wisdom ; Phyllis Marquez
[2020-01-22] MEDS: METOPROLOL SUCC 25MG EXT REL TAB PO SCH (08:07)
[2020-01-22] MEDS: PANTOprazole 40 MG TAB PO SCH (08:08)
[2020-01-22] MEDS: INSULIN ASPART 100 UNITS/ML 3 ML PEN SC SCH (08:10)
--- NOTE | 2020-01-22 08:53 | Gastroenterology Progress Note ---
Date of Service January 22, 2020 Assessment & Plan (1) Ascending cholangitis: S/P EGD/EUS/ERCP w/ evidence of retained stones, cholangitis s/p stent placement clinically feeling well. Morning LFTs improved No GI contraindication to diet No GI contraindication to discharge Will sign off [facility]. Avoid aspirin and nonsteroidal anti-inflammatory medicines for 5 days. Repeat ERCP in 4 weeks to remove stent. Complete a 10 days course of Antibiotics upon discharge. Will sign off. Thank you for allowing us to participate in the care of this patient. Please call with any acute changes, questions or concerns. Please see addendum below with additional recommendation from my supervising physician. Admission and Anticipated Discharge Date Admission Date: January 19, 2020 Supervising Physician Co-Signing Physician Notes I have seen and examined the patient with DARCY Brennan whose note reflects our findings and plan. ERCP Monday. LFTs improving. Stable for discharge. Repeat ERCp scheduled ini 4 weeks for stent removal. Subjective S/P EGD/EUS/ERCP Feeling well this AM Tolerating diet LFTs downtrending Remains on ABX EGD: Z-line regular, 44 cm from the incisors. - Diverticulum in the middle third of the esophagus. - No endoscopic esophageal abnormality to explain patient's dysphagia. Esophagus dilated. Dilated. - Normal stomach. - Duodenal diverticulum. - Duodenal lipoma. Biopsied. Ligated EUS: There was no sign of significant pathology in the ampulla. - There was dilation in the common bile duct which measured up to 14 mm. - Multiple stones were visualized endosonographically in the common bile duct. - Evidence of a cholecystectomy. - There was no evidence of significant pathology in the visualized portion of the liver. - There was no sign of significant pathology in the entire pancreas. - The celiac trunk was endosonographically normal ERCP: Ascending cholangitis was found. - Choledocholithiasis was found. Complete removal was accomplished by biliary sphincterotomy, balloon sphincteroplasty and balloon extraction. - Two plastic biliary stents were placed into the common bile duct. Review of Systems Constitutional: no fever and no chills Respiratory: no cough Cardiovascular: no chest pain Gastrointestinal: no abdominal pain Physical Exam Constitutional: well developed and well nourished; no acute distress Neck: trachea midline Respiratory: normal respiratory effort Cardiovascular: Rate/Rhythm: regular rate Gastrointestinal (Abdomen): Inspection/Auscultation: normal bowel sounds Percussion/Palpation: abdomen soft; abdomen nontender and no guarding Skin: no rashes, warm and dry Results & Data ([facility]) Vital Signs (Past 12 Hours) Vital Signs Temp Pulse Pulse Pulse Resp BP BP 01/22/20 08:04 36.8 C 63 20 158/84 H 01/22/20 04:16 36.8 C 68 18 161/86 H 01/22/20 00:59 75 01/21/20 23:56 36.8 C 70 18 167/92 H Pulse Ox 01/22/20 08:04 97 01/22/20 04:16 98 01/22/20 00:59 01/21/20 23:56 96
== END 2020-01-22 11:00 | disposition home or self-care (01) | DRG 871 ==
LOC: ED 15:03 → 2S 17:52 → SUATTDRO 17:52 → 2S 18:09

== ENCOUNTER 2020-10-26 19:45 | Inpatient (IN) ==
[2020-10-26] MEDS ORDERED: SODIUM CHLORIDE 0.9% 1000ML 1,000 ML IV ONE (20:59)
--- NOTE | 2020-10-26 21:25 | Emergency Department Note ---
Impression & Plan Upper abdominal pain, Total bilirubin, elevated, Chronic kidney disease, stage III (moderate), Esophageal diverticulum ED Provider Note Provider: Ashok Esqueda MD DATE OF SERVICE: 10/26/2020 CHIEF COMPLAINT: Thoracic back and upper abdominal discomfort with nausea HISTORY OF PRESENT ILLNESS: Patient is a 69-year-old gentleman with extensive past medical history including aortic aneurysm status post repair, type 2 diabetes, CKD, CAD, esophageal diverticulum, history of cholangitis presenting here today stating over the past week he started to have some thoracic back discomfort. Progressed today and some epigastric and right upper quadrant type pain. Seen by his doctor earlier today and a basic blood work. PCP called him back earlier and told him he had an elevated white blood cell count and would follow-up closely with him tomorrow. He ate dinner with some grilled chicken had worsening of epigastric and right upper quadrant pain as well as nausea. Patient states he had a low-grade fever 100.2 Fahrenheit at home just this evening and took some Tylenol prior to coming in this evening. No vomiting reported. Given this and the fever came here for further evaluation. His history is somewhat similar approximately 9 months ago when he had cholangitis and a biliary stone per his and his report. No trauma reported. Denies chest pain or shortness of breath. Patient has received his Covid vaccine. REVIEW OF SYSTEMS: A total of 10 review of systems was obtained and negative except as stated above in the HPI. PAST MEDICAL HISTORY: As noted above and includes prior empyema and temporary dialysis MEDICATIONS: Reviewed home medication list SOCIAL HISTORY: and lives at home with PHYSICAL EXAM: GENERAL: alert and oriented in no acute distress on stretcher Head: normocephalic and atraumatic EYES: No injection, discharge or icterus. NECK: Trachea midline. LUNGS: Airway patent. No retractions. HEART: Regular rate and rhythm. No chest wall tenderness ABDOMEN: Soft with some mild epigastric and right upper quadrant tenderness. Negative Lozano sign. SKIN: Acyanotic, warm, dry, without rashes EXTREMITIES: Without swelling, tenderness or deformity NEUROLOGICAL: No focal deficits. No aphasia. No facial droop or slurred speech. Normal strength and tone in the extremities. Sensation to gross touch normal. EK beats per normal sinus rhythm. No PVC or PAC. No acute ST segment elevation or depression. Left axis noted. QTc 408. CONTINUOUS CARDIAC MONITORING: was ordered and showed a heart rate of 60s to 80s bpm in normal sinus rhythm PDMP was checked without noted issue. Patient's laboratory studies and imaging reviewed. Differential includes Appendicitis, infections, diverticulitis, UTI, obstruction, mesenteric ischemia, aortic pathology, inflammatory bowel disease, renal colic, PUD, pancreatitis, biliary pathology, hernia, volvulus, constipation, cardiac, as well as other pathologies. IMPRESSION/MEDICAL DECISION MAKING: Patient with significant past medical history. Patient does not appear septic and is afebrile upon arrival here. Lower suspicion at this time for acute ACS or cardiac injury given EKG and negative troponin. Doubt acute PE given his lack of tachycardia or hypoxia here. Doubt this represents GI bleed. Blood work shows slight white blood cell count elevation with slight elevation of the total bilirubin. This is trended up since previous baseline although not as high as prior episode of cholangitis. AST and lipase within normal limits. Does not seem consistent with acute pancreatitis or hepatitis. Chronic renal dysfunction noted. CT scan per stat rad as below without significant acute findings. Patient does have chronic esophageal diverticuli that may be contributing to his symptoms however does have some tenderness of the abdomen and the fever do not correlate well with just this etiology. Given the slightly elevated white blood cell count and slightly elevation of his bilirubin and similar to prior episode of cholangitis with borderline fever earlier, discussed with the patient and . He still in some moderate amount of pain after some fentanyl which wore off and thus we will trial a dose of Dilaudid for better pain control. We will observe the patient further in the hospital given his significant history for any change in his clinical status or evolution of possible cholangitis. Hospitalist was contacted. DIAGNOSIS: Upper abdominal pain, elevated bilirubin DISPOSITION: Hospitalist will evaluate Patient was agreeable with this plan. Preliminary Findings Only See Final Report For Complete Findings CT ABDOMEN & PELVIS With Contrast: Comparison: CT abdomen and pelvis 01/19/20 Dilated distal esophagus filled with ingested material. Associated esophageal wall thickening. Appearance is similar to prior. Consider endoscopic evaluation if not previously performed. Trace right pleural effusion. Right basilar atelectasis. Aortoiliac atherosclerosis. Infrarenal abdominal aortic aneurysm measuring 3.7 cm. 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 Severe atrophy of the right kidney with small right kidney cyst. Mild hydronephrosis of the left kidney without obstructing radiopaque stone. This may be secondary to retroperitoneal fibrosis. Hepatic steatosis. Cholecystectomy. Calcified splenic granuloma. Pancreas and adrenal glands are unremarkable. Normal appendix. No bowel obstruction or inflammation. Postoperative changes of the small bowel and sigmoid colon. Fat-containing umbilical hernia containing small bowel without incarceration. Urinary bladder and prostate are normal. No acute osseous findings. Radiologist: Philly Khan M.D. 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 Martinez Jerome 02/03/16 " Basal cell carcinoma (BCC) BPH (benign prostatic hyperplasia) CAD (coronary artery disease) Chronic kidney disease, stage III (moderate) Dyslipidemia Esophageal diverticulum GERD (gastroesophageal reflux disease) History of empyema of pleura History of nephrolithiasis History of renal dialysis required dialysis for short period following AAA repair 2015 History of stroke 5 years ago; no residual Hypertension IgG4 related disease follows w/ [facility] Ischemia of kidney during AAA repair 2015; currently w/ one functioning kidney Obstructive sleep apnea Intolerant to CPAP Restless leg syndrome Silent myocardial infarction h/o Spinal stenosis T2DM (type 2 diabetes mellitus) Diet controlled Vasculitis involving renal artery Vitamin D deficiency Surgical History History of AAA (abdominal aortic aneurysm) repair s/p TEVAR 2016 for 8 cm thoracic aneurysm after prior open repair of 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 History of cataract surgery History of cholecystectomy 12/2018 History of colonoscopy History of colostomy History of colostomy reversal ileostomy reversal 10/2018 History of ERCP History of esophagogastroduodenoscopy (EGD) History of lung surgery Secondary to empyema History of partial colectomy "L hemicolectomy with colostomy 2* mesenteric ischemia s/p vascular surgery 02/03/16" History of thoracic aortic aneurysm repair stent S/P Mohs surgery for basal cell carcinoma x 2 Family History Father Diabetes Other Colorectal cancer No family history of adverse response to anesthesia Obstructive sleep apnea Social History Smoking Status: Former smoker Tobacco Type: Cigarettes Second Hand Exposure: No; Hx Alcohol Use: No Hx Substance Use: No Preferred Language: Nauruan Communication Ability: Effective Beliefs That Will Affect Care: None marital status: Current Living Situation: Spouse current occupational status: retired Feels Safe at Home: Yes Assistive Devices: Denture - Upper, Denture - Lower and Glasses Allergies Allergies Allergy/AdvReac Type Severity Reaction Status Date / Time tramadol AdvReac Unknown HIVES Verified 10/26/20 21:58 clotrimazole AdvReac Rash Verified 10/26/20 21:58 Home Meds Home Medications Medication Instructions Recorded Confirmed hydroxyzine HCl 10 mg tablet 10 mg PO ONCE PRN tab 07/17/19 10/26/20 docusate sodium 100 mg PO DAILY PRN 01/19/20 10/26/20 omeprazole 20 mg PO QAM 01/19/20 10/26/20 oxycodone 5 mg PO Q8 PRN 01/19/20 10/26/20 atorvastatin 10 mg PO HS 02/19/20 10/26/20 aspirin [Aspir-81] 81 mg PO HS 05/02/20 10/26/20 ibuprofen 400 mg PO Q6H PRN 05/02/20 10/26/20 Previous Rx's Medication Instructions Recorded ergocalciferol (vitamin D2) 1,250 50,000 unit PO MONTHLY #12 cap 06/18/20 mcg (50,000 unit) capsule clonazepam 1 mg tablet 1 mg PO HS PRN #30 tab 07/09/20 metoprolol succinate 25 mg 37.5 mg PO BID #270 tab 10/02/20 tablet,extended release 24 hr Results & Data (ED) Vital Signs Vital Signs - 24 hr 10/26/20 19:47 10/26/20 20:44 10/26/20 20:48 Temperature 36.3 C L Temperature Source Temporal Artery Scan Pulse Rate 72 71 Pulse Rate [Left Apical] 70 Pulse Rate from SpO2 Sensor 71 Pulse Rhythm [Left Apical] Regular Pulse Strength [Left Apical] Normal Respiratory Rate 16 19 21 Respiratory Effort / Characteristics Non-Labored Spontaneous Respiratory Depth Normal Respiratory Pattern Regular Blood Pressure 156/83 H 146/82 H Blood Pressure [Right Arm] 146/82 H Blood Pressure Mean 107 103 Blood Pressure Mean [Right Arm] 103 Blood Pressure Position [Right Arm] Lying Pulse Oximetry 95 96 96 Oxygen Delivery Method Room Air Room Air Sepsis Recent Fever Within 48 Hours No Sepsis New/Unexplained Change in Mental Status No Sepsis Action Taken by Nursing No Action Required 10/26/20 20:53 10/26/20 21:00 10/26/20 21:30 Temperature Temperature Source Pulse Rate 72 70 68 Pulse Rate [Left Apical] Pulse Rate from SpO2 Sensor 71 71 69 Pulse Rhythm [Left Apical] Pulse Strength [Left Apical] Respiratory Rate 22 16 19 Respiratory Effort / Characteristics Respiratory Depth Respiratory Pattern Blood Pressure Blood Pressure [Right Arm] Blood Pressure Mean Blood Pressure Mean [Right Arm] Blood Pressure Position [Right Arm] Pulse Oximetry 95 97 97 Oxygen Delivery Method Sepsis Recent Fever Within 48 Hours Sepsis New/Unexplained Change in Mental Status Sepsis Action Taken by Nursing 10/26/20 22:00 10/26/20 22:34 10/26/20 23:00 Temperature Temperature Source Pulse Rate 72 71 69 Pulse Rate [Left Apical] Pulse Rate from SpO2 Sensor 71 71 69 Pulse Rhythm [Left Apical] Pulse Strength [Left Apical] Respiratory Rate 18 14 17 Respiratory Effort / Characteristics Respiratory Depth Respiratory Pattern Blood Pressure Blood Pressure [Right Arm] Blood Pressure Mean Blood Pressure Mean [Right Arm] Blood Pressure Position [Right Arm] Pulse Oximetry 98 97 96 Oxygen Delivery Method Sepsis Recent Fever Within 48 Hours Sepsis New/Unexplained Change in Mental Status Sepsis Action Taken by Nursing 10/26/20 23:30 10/26/20 23:57 Temperature Temperature Source Pulse Rate 71 73 Pulse Rate [Left Apical] Pulse Rate from SpO2 Sensor 72 72 Pulse Rhythm [Left Apical] Pulse Strength [Left Apical] Respiratory Rate 14 18 Respiratory Effort / Characteristics Respiratory Depth Respiratory Pattern Blood Pressure 132/80 Blood Pressure [Right Arm] Blood Pressure Mean 97 Blood Pressure Mean [Right Arm] Blood Pressure Position [Right Arm] Pulse Oximetry 97 97 Oxygen Delivery Method Sepsis Recent Fever Within 48 Hours Sepsis New/Unexplained Change in Mental Status Sepsis Action Taken by Nursing Laboratory Data Result diagrams: 10/26/20 22:00 10/26/20 22:00 Lab Results 10/26/20 10/26/20 10/26/20 Range/Units 21:56 21:56 22:00 WBC 11.12 H (4.8-10.8) K/uL RBC 5.81 (4.7-6.1) M/uL Hgb 16.9 (14.0-18.0) g/dL Hct 50.7 (42-52) % MCV 87.3 (80-100) fL MCH 29.1 (25-34) pg MCHC 33.3 (32-36) g/dL RDW Std Deviation 46.7 H (36.4-46.3) fL RDW Coeff of Justina 14.6 H (11.5-14.5) % Plt Count 144 (130-400) K/uL MPV 10.5 H (7.4-10.4) fL Immature Gran % (Auto) 0.3 % Neut % (Auto) 67.6 % Lymph % (Auto) 15.4 % [place] % (Auto) 14.5 % Eos % (Auto) 2.0 % Baso % (Auto) 0.2 % Neut # (Auto) 7.53 H (1.4-6.5) K/uL Lymph # (Auto) 1.71 (1.2-3.4) K/uL [place] # (Auto) 1.61 H (0.11-0.59) K/uL Eos # (Auto) 0.22 (0-0.5) K/uL Baso # (Auto) 0.02 (0-0.2) K/uL Immature Gran # (Auto) 0.03 H (0.00-0.02) K/uL Sodium (136-145) mmol/L Potassium (3.5-5.1) mmol/L Chloride (98-107) mmol/L Carbon Dioxide (21-32) mmol/L Anion Gap (3-11) BUN (7-18) mg/dl Creatinine (0.6-1.4) mg/dl Est Cr Clr Drug Dosing ml/min Est GFR ( Amer) ml/min Est GFR (Non-Af Amer) ml/min BUN/Creatinine Ratio (10-20) Glucose (70-99) mg/dl Lactate (0.4-2.0) mmol/L Calcium (8.5-10.1) mg/dl Magnesium (1.8-2.4) mg/dl Total Bilirubin (0.2-1) mg/dl AST (15-37) U/L ALT (12-78) U/L Alkaline Phosphatase (45-117) U/L Troponin I (0-0.045) ng/ml Total Protein (6.4-8.2) gm/dl Albumin (3.4-5.0) gm/dl Globulin (2.5-4.0) gm/dl Albumin/Globulin Ratio (0.9-2) Lipase (73-393) U/L COVID-19 Eval Order Covid19 at [facility] SARS-CoV-2 (PCR) NEGATIVE (Negative) 10/26/20 10/26/20 Range/Units 22:00 22:00 WBC (4.8-10.8) K/uL RBC (4.7-6.1) M/uL Hgb (14.0-18.0) g/dL Hct (42-52) % MCV (80-100) fL MCH (25-34) pg MCHC (32-36) g/dL RDW Std Deviation (36.4-46.3) fL RDW Coeff of Justina (11.5-14.5) % Plt Count (130-400) K/uL MPV (7.4-10.4) fL Immature Gran % (Auto) % Neut % (Auto) % Lymph % (Auto) % [place] % (Auto) % Eos % (Auto) % Baso % (Auto) % Neut # (Auto) (1.4-6.5) K/uL Lymph # (Auto) (1.2-3.4) K/uL [place] # (Auto) (0.11-0.59) K/uL Eos # (Auto) (0-0.5) K/uL Baso # (Auto) (0-0.2) K/uL Immature Gran # (Auto) (0.00-0.02) K/uL Sodium 137 (136-145) mmol/L Potassium 4.2 (3.5-5.1) mmol/L Chloride 107 (98-107) mmol/L Carbon Dioxide 25 (21-32) mmol/L Anion Gap 5.0 (3-11) BUN 20 H (7-18) mg/dl Creatinine 1.88 H (0.6-1.4) mg/dl Est Cr Clr Drug Dosing 42.3 ml/min Est GFR ( Amer) 41.6 ml/min Est GFR (Non-Af Amer) 35.9 ml/min BUN/Creatinine Ratio 10.8 (10-20) Glucose 194 H (70-99) mg/dl Lactate 1.1 (0.4-2.0) mmol/L Calcium 9.3 (8.5-10.1) mg/dl Magnesium 2.4 (1.8-2.4) mg/dl Total Bilirubin 1.8 H (0.2-1) mg/dl AST 13 L (15-37) U/L ALT 23 (12-78) U/L Alkaline Phosphatase 86 (45-117) U/L Troponin I < 0.015 (0-0.045) ng/ml Total Protein 7.8 (6.4-8.2) gm/dl Albumin 3.5 (3.4-5.0) gm/dl Globulin 4.3 H (2.5-4.0) gm/dl Albumin/Globulin Ratio 0.8 L (0.9-2) Lipase 80 (73-393) U/L COVID-19 Eval Order SARS-CoV-2 (PCR) (Negative) Administered Medications Discontinued Medications Fentanyl Citrate (Fentanyl Citrate 100 Mcg/2 Ml Vial) 50 mcg IV NOW STA Stop: 10/26/20 21:56 Last Admin: 10/26/20 22:05 Dose: 50 mcg Documented by: [id number] Hydromorphone HCl (Hydromorphone Inj 0.5 Mg/0.5 Ml Syr) 0.5 mg IV NOW STA Stop: 10/26/20 23:30 Last Admin: 10/26/20 23:55 Dose: 0.5 mg Documented by: [id number] Sodium Chloride (Nss 1000ml) 1,000 mls @ 999 mls/hr IV .Q1H1M ONE Stop: 10/26/20 21:59 Last Infusion: 10/26/20 23:12 Dose: 0 mls/hr Documented by: [id number] Admin: 10/26/20 22:05 Dose: 999 mls/hr Documented by: [id number] Discharge Plan Visit Data Chief Complaint: Fever Stated Complaint: FEVER, GASTRIC PAIN ED Provider: Ashok Esqueda Discharge Problem: Upper abdominal pain, Total bilirubin, elevated, Chronic kidney disease, stage III (moderate), Esophageal diverticulum Patient Disposition: Being Evaluated by Hospitalist Forms Stand Alone Forms: [facility] Prescriptions Prescriptions: No Action clonazepam 1 mg tablet 1 mg PO HS PRN (Reason: sleep) Qty: 30 RF: 5 metoprolol succinate 25 mg tablet extended release 24 hr 37.5 mg PO BID Qty: 270 RF: 3 ergocalciferol (vitamin D2) 1,250 mcg (50,000 unit) capsule 50,000 unit PO MONTHLY Qty: 12 RF: 0 hydroxyzine HCl 10 mg tablet 10 mg PO ONCE PRN (Reason: Itching) RF: 0 aspirin [Aspir-81] 81 mg Tablet,Delayed Release (Dr/Ec) 81 mg PO HS RF: 0 ibuprofen 200 mg Tablet 400 mg PO Q6H PRN (Reason: Pain) RF: 0 omeprazole 20 mg capsule,delayed release(DR/EC) 20 mg PO QAM RF: 0 oxycodone 5 mg Tablet 5 mg PO Q8 PRN (Reason: Pain) RF: 0 docusate sodium 100 mg Tablet 100 mg PO DAILY PRN (Reason: Constipation) RF: 0 atorvastatin 10 mg Tablet 10 mg PO HS RF: 0 Referrals Referrals: Isidoro Brown MD [Primary Care Provider] - Discharge Problem: Chronic kidney disease, stage III (moderate) Qualifiers: Chronic kidney disease stage 3 subtype: stage 3b (GFR 30-44) Qualified Code(s): N18.32 - Chronic kidney disease, stage 3b
[2020-10-26] MEDS ORDERED: fentaNYL citrate 100 MCG/2 ML VIAL IV STA (21:55)
[2020-10-26 22:13] LABS: Basophils # (auto) 0.02 K/uL (0-0.2); Basophils % (auto) 0.2 %; Eosinophils # (auto) 0.22 K/uL (0-0.5); Hematocrit (blood only) 50.7 % (42-52); Hemoglobin 16.9 g/dL (14.0-18.0); Immature Granulocytes # (auto) 0.03 K/uL (0.00-0.02); Immature Granulocytes % (auto) 0.3 %; Lymphocytes # (auto) 1.71 K/uL (1.2-3.4); Lymphocytes % (auto) 15.4 %; Mean Corpuscular Hemoglobin 29.1 pg (25-34); Mean Corpuscular Hgb Conc 33.3 g/dL (32-36); Mean Corpuscular Volume 87.3 fL (80-100); Mean Platelet Volume 10.5 fL (7.4-10.4); Monocytes # (auto) 1.61 K/uL (0.11-0.59); Monocytes % (auto) 14.5 %; Neutrophils # (auto) 7.53 K/uL (1.4-6.5); Neutrophils % (auto) 67.6 %; Platelet Count 144 K/uL (130-400); RDW Coefficient of Variation 14.6 % (11.5-14.5); RDW Standard Deviation 46.7 fL (36.4-46.3); Red Blood Count 5.81 M/uL (4.7-6.1); White Blood Count 11.12 K/uL (4.8-10.8)
[2020-10-26 22:42] LABS: Alanine Aminotransferase 23 U/L (12-78); Albumin Level 3.5 gm/dl (3.4-5.0); BUN Creatinine Ratio 10.8 (10-20); Blood Urea Nitrogen 20 mg/dl (7-18); Calcium 9.3 mg/dl (8.5-10.1); Carbon Dioxide 25 mmol/L (21-32); Chloride 107 mmol/L (98-107); Creatinine Clr Calc Pharmacy 42.3 ml/min; Est GFR (African American) 41.6 ml/min; Est GFR (Non-African American) 35.9 ml/min; Glucose 194 mg/dl (70-99); Lipase 80 U/L (73-393); Magnesium 2.4 mg/dl (1.8-2.4); Potassium 4.2 mmol/L (3.5-5.1); Sodium 137 mmol/L (136-145)
[2020-10-26 22:58] LABS: Albumin Globulin Ratio 0.8 (0.9-2); Alkaline Phosphatase 86 U/L (45-117); Aspartate Aminotransferase 13 U/L (15-37); Bilirubin,Total 1.8 mg/dl (0.2-1); Globulin 4.3 gm/dl (2.5-4.0); Total Protein 7.8 gm/dl (6.4-8.2); Troponin I < 0.015 ng/ml (0-0.045)
[2020-10-26] MEDS ORDERED: HYDROmorphone INJ 0.5 MG/0.5 ML SYR IV STA (23:29)
--- NOTE | 2020-10-27 00:29 | History & Physical Report ---
Date of Service October 27, 2020 Assessment & Plan (1) Upper abdominal pain: Differentials include : distal esophagitis on CT initial read rule out recurrent bile duct stone hx presumptive CAD, hx TIA, hx of thoracoabdominal aortic aneurysm status post surgery HTN, slightly elevated secondary to discomfort IgG4 related disease/vasculitis as per records, currently in remission DM 2 diet-controlled, suboptimal control as of recent outpatient hemoglobin A1c of 8.5 CRI, creatinine at baseline mood disorder past tobacco abuse OBS GMF IV PPI 1 dose, increase home daily PPI to twice daily dosing follow LFTs hold off on antibiotics for now GI consult Re: Abdominal pain n.p.o. until patient seen by GI in a.m. Basal insulin, ISS BG goal 1 10-1 40; carb count coverage when patient diet advanced DVT prophylaxis. Heparin subcu Full code Patient's requesting updates for providers. Ms. Nel Joy, contact #[phone]. Text document was generated using [employer] voice recognition software. It may contain grammatical or spelling errors. Kindly contact undersigned for clarification of any documentation item in question. History of Present Illness Chief Complaint: Abdominal pain Primary Care Provider: Isidoro Brown MD History obtained from patient, family, and records. Medical history significant for presumptive CAD, hx TIA, hx of thoracoabdominal aortic aneurysm status post surgery, HTN, IgG4 related disease/vasculitis as per records, DM 2 diet-controlled, CRI (baseline creatinine 1.9), history choledocholithiasis, ISABELLE CPAP intolerance, mood disorder, past tobacco abuse. Last confinement January 2020 for sepsis secondary to ascending cholangitis secondary to choledocholithiasis. EGD showed esophageal diverticulum. Patient underwent ERCP, subsequent stone extraction by biliary sphincterotomy and subsequent CBD biliary stent placement. CBD stents subsequently removed on follow-up ERCP done outpatient 2 months later. 6 days history of mid back pain which later moved to upper abdominal discomfort without other symptoms. No fever, no chills. No chest pain, no S OB, no cough, no diarrhea/dysuria symptoms. Denies black/bloody stools. Somewhat similar to stone attack from last year as per patient. One dose of ibuprofen taken at home. Patient seen at PCPs office yesterday. Concern for recurrent CBD stone. Outpatient blood work showed WBC of 12, total bilirubin was elevated at 1.8. PCP to contact patient's GI specialist. Patient instructed to go to ER if with fever or worsening symptoms. At home, patient noted worsening discomfort along with low-grade fever, 100.2. Patient brought to ER by . Medical History as above Surgical History : cystoscopy, enterostomy, vascular procedure, cholecystectomy, skin cancer surgery, lung abscess drainage, thoracal abdominal aneurysm repair Family History : Colon cancer Personal/Social history : Past tobacco abuse, occasional EtOH intake, retired contractor Allergies Allergy/AdvReac Type Severity Reaction Status Date / Time tramadol AdvReac Unknown HIVES Verified 10/26/20 21:58 clotrimazole AdvReac Rash Verified 10/26/20 21:58 Home Medications Medication Instructions Recorded Confirmed Type hydroxyzine HCl 10 mg tablet 10 mg PO ONCE PRN tab 07/17/19 10/26/20 History docusate sodium 100 mg PO DAILY PRN 01/19/20 10/26/20 History omeprazole 20 mg PO QAM 01/19/20 10/26/20 History oxycodone 5 mg PO Q8 PRN 01/19/20 10/26/20 History atorvastatin 10 mg PO HS 02/19/20 10/26/20 History aspirin [Aspir-81] 81 mg PO HS 05/02/20 10/26/20 History ibuprofen 400 mg PO Q6H PRN 05/02/20 10/26/20 History ergocalciferol (vitamin D2) 1,250 50,000 unit PO MONTHLY #12 cap 06/18/20 10/26/20 Rx mcg (50,000 unit) capsule clonazepam 1 mg tablet 1 mg PO HS PRN #30 tab 07/09/20 10/26/20 Rx metoprolol succinate 25 mg 37.5 mg PO BID #270 tab 10/02/20 10/26/20 Rx tablet,extended release 24 hr Past Med/Surg History Medical History (Updated 10/27/20 @ 00:06 by Ashok Esqueda M.D.) AAA (abdominal aortic aneurysm) "stage 4 rare vasculitis s/p AAA repair performed by Dr. Martinez Jerome 02/03/16 " Basal cell carcinoma (BCC) BPH (benign prostatic hyperplasia) CAD (coronary artery disease) Chronic kidney disease, stage III (moderate) Dyslipidemia Esophageal diverticulum GERD (gastroesophageal reflux disease) History of empyema of pleura History of nephrolithiasis History of renal dialysis required dialysis for short period following AAA repair 2015 History of stroke 5 years ago; no residual Hypertension IgG4 related disease follows w/ [facility] Ischemia of kidney during AAA repair 2015; currently w/ one functioning kidney Obstructive sleep apnea Intolerant to CPAP Restless leg syndrome Silent myocardial infarction h/o Spinal stenosis T2DM (type 2 diabetes mellitus) Diet controlled Vasculitis involving renal artery Vitamin D deficiency Surgical History History of AAA (abdominal aortic aneurysm) repair s/p TEVAR 2016 for 8 cm thoracic aneurysm after prior open repair of 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 History of cataract surgery History of cholecystectomy 12/2018 History of colonoscopy History of colostomy History of colostomy reversal ileostomy reversal 10/2018 History of ERCP History of esophagogastroduodenoscopy (EGD) History of lung surgery Secondary to empyema History of partial colectomy "L hemicolectomy with colostomy 2* mesenteric ischemia s/p vascular surgery 02/03/16" History of thoracic aortic aneurysm repair stent S/P Mohs surgery for basal cell carcinoma x 2 Family History Father Diabetes Other Colorectal cancer No family history of adverse response to anesthesia Obstructive sleep apnea Social History Smoking Status: Former smoker Tobacco Type: Cigarettes Second Hand Exposure: No; Hx Alcohol Use: No Hx Substance Use: No Preferred Language: Belarusian Communication Ability: Effective Beliefs That Will Affect Care: None marital status: Current Living Situation: Spouse current occupational status: retired Feels Safe at Home: Yes Assistive Devices: Denture - Upper and Denture - Lower Review of Systems Review of Systems: As per HPI, all 10 systems reviewed, all other ROS negative Physical Exam Physical Exam: GENERAL: Slightly uncomfortable, pleasant, mild hearing impairment, no respiratory distress SKIN: Normal color, warm HEENT: [place] palpebral conjunctivae, no ptosis, dry buccal mucosa NECK : Supple, no tenderness CHEST : CTA, no tenderness HEART : RRR, no obvious murmurs ABDOMEN: Some distention, epigastric tenderness EXTREMITIES : No LE swelling/tenderness, no other conspicuous deformities noted NEUROLOGIC : Coherent, no facial asymmetry, mild hearing impairment, no other gross focality Results & Data Results & Data ([facility]) Vital Signs (Past 12 Hours) Vital Signs Temp Pulse Pulse Resp BP BP Pulse Ox 10/26/20 23:57 73 18 132/80 97 10/26/20 23:30 71 14 97 10/26/20 23:00 69 17 96 10/26/20 22:34 71 14 97 10/26/20 22:00 72 18 98 10/26/20 21:30 68 19 97 10/26/20 21:00 70 16 97 10/26/20 20:53 72 22 95 10/26/20 20:48 71 21 146/82 H 96 10/26/20 20:44 70 19 146/82 H 96 10/26/20 19:47 36.3 C L 72 16 156/83 H 95 Laboratory Results Laboratory Results WBC 11.12 K/uL (4.8-10.8) H 10/26/20 22:00 RBC 5.81 M/uL (4.7-6.1) 10/26/20 22:00 Hgb 16.9 g/dL (14.0-18.0) 10/26/20 22:00 Hct 50.7 % (42-52) 10/26/20 22:00 MCV 87.3 fL (80-100) 10/26/20 22:00 MCH 29.1 pg (25-34) 10/26/20 22:00 MCHC 33.3 g/dL (32-36) 10/26/20 22:00 RDW Std Deviation 46.7 fL (36.4-46.3) H 10/26/20 22:00 RDW Coeff of Justina 14.6 % (11.5-14.5) H 10/26/20 22:00 Plt Count 144 K/uL (130-400) 10/26/20 22:00 MPV 10.5 fL (7.4-10.4) H 10/26/20 22:00 Immature Gran % (Auto) 0.3 % 10/26/20 22:00 Neut % (Auto) 67.6 % 10/26/20 22:00 Lymph % (Auto) 15.4 % 10/26/20 22:00 [place] % (Auto) 14.5 % 10/26/20 22:00 Eos % (Auto) 2.0 % 10/26/20 22:00 Baso % (Auto) 0.2 % 10/26/20 22:00 Neut # (Auto) 7.53 K/uL (1.4-6.5) H 10/26/20 22:00 Lymph # (Auto) 1.71 K/uL (1.2-3.4) 10/26/20 22:00 [place] # (Auto) 1.61 K/uL (0.11-0.59) H 10/26/20 22:00 Eos # (Auto) 0.22 K/uL (0-0.5) 10/26/20 22:00 Baso # (Auto) 0.02 K/uL (0-0.2) 10/26/20 22:00 Immature Gran # (Auto) 0.03 K/uL (0.00-0.02) H 10/26/20 22:00 Sodium 137 mmol/L (136-145) 10/26/20 22:00 Potassium 4.2 mmol/L (3.5-5.1) 10/26/20 22:00 Chloride 107 mmol/L (98-107) 10/26/20 22:00 Carbon Dioxide 25 mmol/L (21-32) 10/26/20 22:00 Anion Gap 5.0 (3-11) 10/26/20 22:00 BUN 20 mg/dl (7-18) H 10/26/20 22:00 Creatinine 1.88 mg/dl (0.6-1.4) H 10/26/20 22:00 Est Cr Clr Drug Dosing 42.3 ml/min 10/26/20 22:00 Est GFR ( Amer) 41.6 ml/min 10/26/20 22:00 Est GFR (Non-Af Amer) 35.9 ml/min 10/26/20 22:00 BUN/Creatinine Ratio 10.8 (10-20) 10/26/20 22:00 Glucose 194 mg/dl (70-99) H 10/26/20 22:00 Lactate 1.1 mmol/L (0.4-2.0) 10/26/20 22:00 Calcium 9.3 mg/dl (8.5-10.1) 10/26/20 22:00 Magnesium 2.4 mg/dl (1.8-2.4) 10/26/20 22:00 Total Bilirubin 1.8 mg/dl (0.2-1) H 10/26/20 22:00 AST 13 U/L (15-37) L 10/26/20 22:00 ALT 23 U/L (12-78) 10/26/20 22:00 Alkaline Phosphatase 86 U/L (45-117) 10/26/20 22:00 Troponin I < 0.015 ng/ml (0-0.045) 10/26/20 22:00 Total Protein 7.8 gm/dl (6.4-8.2) 10/26/20 22:00 Albumin 3.5 gm/dl (3.4-5.0) 10/26/20 22:00 Globulin 4.3 gm/dl (2.5-4.0) H 10/26/20 22:00 Albumin/Globulin Ratio 0.8 (0.9-2) L 10/26/20 22:00 Lipase 80 U/L (73-393) 10/26/20 22:00 COVID-19 Eval Order Covid19 at [facility] 10/26/20 21:56 SARS-CoV-2 (PCR) NEGATIVE (Negative) 10/26/20 21:[address] abdomen pelvis initial read: Dilated distal esophagus filled with ingested material. Associated esophageal wall thickening. Appearance is similar to prior. Consider endoscopic evaluation if not previously performed. Trace right pleural effusion. Right basilar atelectasis. Aortoiliac atherosclerosis. Infrarenal abdominal aortic aneurysm measuring 3.7 cm. 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 Severe atrophy of the right kidney with small right kidney cyst. Mild hydronephrosis of the left kidney without obstructing radiopaque stone. This may be secondary to retroperitoneal fibrosis. Hepatic steatosis. Cholecystectomy. Calcified splenic granuloma. Pancreas and adrenal glands are unremarkable. Normal appendix. No bowel obstruction or inflammation. Postoperative changes of the small bowel and sigmoid colon. Fat-containing umbilical hernia containing small bowel without incarceration. Urinary bladder and prostate are normal. No acute osseous findings. Chest x-ray as per my interpretation cardiomegaly, atelectasis EKG as per my interpretation : Rate 70, NSR, LAD, LAFB inferior infarct, T wave abnormalities inferior leads
[2020-10-27] MEDS ORDERED: PANTOprazole 40 MG in SYRINGE 0 ML IV ONE (00:45)
[2020-10-27] MEDS ORDERED: GLUCOSE 40% GEL 15 GM TUBE PO PRN (02:01)
[2020-10-27] MEDS ORDERED: PROMETHAZINE HCL 12.5 MG in SODIUM CHLORIDE 0.9% 50 ML IV PRN (02:01)
[2020-10-27] MEDS ORDERED: GLUCAGON FOR INJ 1 MG VIAL SQ PRN (02:01)
[2020-10-27] MEDS ORDERED: CARBOHYDRATES FOR HYPOGLYCEMIA PO PRN (02:01)
[2020-10-27] MEDS ORDERED: DOCUSATE SODIUM 100 MG CAP PO PRN (02:01)
[2020-10-27] MEDS ORDERED: GLUCOSE 10 TABS/TUBE PO PRN (02:01)
[2020-10-27] MEDS ORDERED: clonazePAM 1 MG TAB PO PRN (02:01)
[2020-10-27] MEDS ORDERED: DEXTROSE 50% 50 ML SYRINGE IV PRN (02:01)
[2020-10-27] MEDS: SODIUM CHLORIDE 0.9% 1000ML 1,000 ML IV SCH ×2 (02:14→19:51)
[2020-10-27] MEDS ORDERED: INSULIN GLARGINE SOLOSTAR 100 UNITS/ML 3 ML PEN SC STA (02:27)
[2020-10-27] MEDS: INSULIN ASPART 100 UNITS/ML 3 ML PEN SC SCH ×5 (02:31→20:39)
[2020-10-27] MEDS: HYDROmorphone INJ 0.5 MG/0.5 ML SYR IV PRN ×3 (02:32→19:07)
[2020-10-27] MEDS: METOPROLOL SUCC 25MG EXT REL TAB PO SCH ×3 (02:54→19:55)
[2020-10-27 04:58] LABS: Appearance Urine Turbid (Clear); Bacteria Urine Automated Negative (Negative); Blood Urine Negative (Negative); Cast Urine Automated 0 /lpf (0-5); Color Urine Dark Yellow; Glucose Urine UA 1+ (Negative); Ketones Urine Trace (Negative); Leukocyte Esterase Urine Negative (Negative); Nitrite Urine Negative (Negative); Protein Urine 1+ (Negative); RBC Urine Automated 0-4 /hpf (0-4); Specific Gravity Urine 1.026 (1.000-1.030); Urobilinogen Urine Negative (Negative)
[2020-10-27 05:07] LABS: Bilirubin Urine 1+ (Negative)
[2020-10-27] MEDS: oxyCODONE HCL IR 5 MG TAB (IMMEDIATE RELEASE) PO PRN (05:42)
[2020-10-27] MEDS: HEPARIN SOD 5,000 UNIT/0.5 ML VIAL SQ SCH ×3 (05:43→20:42)
[2020-10-27 07:33] LABS: Basophils # (auto) 0.02 K/uL (0-0.2); Basophils % (auto) 0.2 %; Eosinophils # (auto) 0.18 K/uL (0-0.5); Eosinophils % (auto) 1.4 %; Hematocrit (blood only) 49.2 % (42-52); Hemoglobin 16.5 g/dL (14.0-18.0); Immature Granulocytes # (auto) 0.05 K/uL (0.00-0.02); Immature Granulocytes % (auto) 0.4 %; Lymphocytes # (auto) 1.89 K/uL (1.2-3.4); Lymphocytes % (auto) 15.1 %; Mean Corpuscular Hemoglobin 29.4 pg (25-34); Mean Corpuscular Hgb Conc 33.5 g/dL (32-36); Mean Corpuscular Volume 87.5 fL (80-100); Mean Platelet Volume 10.7 fL (7.4-10.4); Monocytes # (auto) 1.39 K/uL (0.11-0.59); Monocytes % (auto) 11.1 %; Neutrophils # (auto) 8.99 K/uL (1.4-6.5); Neutrophils % (auto) 71.8 %; Platelet Count 160 K/uL (130-400); RDW Coefficient of Variation 14.6 % (11.5-14.5); RDW Standard Deviation 46.8 fL (36.4-46.3); Red Blood Count 5.62 M/uL (4.7-6.1); White Blood Count 12.52 K/uL (4.8-10.8)
[2020-10-27 07:50] LABS: Albumin Level 3.3 gm/dl (3.4-5.0); Creatinine Clr Calc Pharmacy 49.1 ml/min; Est GFR (African American) 50.2 ml/min; Est GFR (Non-African American) 43.3 ml/min; Potassium 4.7 mmol/L (3.5-5.1)
[2020-10-27 07:53] LABS: Albumin Globulin Ratio 0.8 (0.9-2); Bilirubin,Total 2.2 mg/dl (0.2-1); Total Protein 7.3 gm/dl (6.4-8.2)
--- NOTE | 2020-10-27 08:01 | CT Scan Report ---
ABDOMEN AND PELVIS CT WITHOUT CONTRAST CT DOSE: 525.64 mGy.cm HISTORY: epigastric, upper abd pain, nausea, hx biliary stone TECHNIQUE: Multiaxial CT images of the abdomen and pelvis were performed without contrast. A dose lo wering technique was utilized adhering to the principles of ALARA. COMPARISON STUDY: Abdomen and pelvis CT 04/24/2020. FINDINGS: No change in the aneurysmal dilatation of the distal descending thoracic aorta measuring up to 4.8 cm in diameter. This is distal to the partially visualized aortic stent. Bibasilar linear den sities consistent with subsegmental atelectasis. Distended and debris filled distal esophagus which d emonstrates esophageal wall thickening. This is also unchanged compared the prior study. No pneumoper itoneum. No pneumatosis. No fractures within the visualized osseous structures. Hepatic steatosis. Ch olecystectomy. A few punctate calcified granuloma seen within the spleen. The pancreas is unremarkabl e. Mild bladder wall thickening which could be due to underdistention. No pelvic free fluid. Prior si gmoid anastomosis. Suboptimal evaluation for bowel pathology due to the lack of intravenous and oral contrast. However, there is no definite bowel wall thickening or obstruction. Normal appendix. Eviden ce for prior anastomosis within the distal ileum. Severely atrophic right kidney containing a 2 cm hy podense lesion. This favors a cyst. Chronic left perinephric inflammatory change/edema is again noted . There or vascular calcifications within the left kidney. Mild fullness within the left renal collec ting system without rosa m hydronephrosis, unchanged. Soft tissue thickening surrounding the abdominal aorta remains unchanged. Stable mild fusiform dilatation of the abdominal aorta measuring up to 3.7 cm. IMPRESSION: 1. No change in the dilated and debris filled distal esophagus with associated esophageal wall thicke christy. This could represent a partially visualized esophageal diverticulum. 2. No change in the soft tissue thickening surrounding the 3.7 cm abdominal aortic aneurysm. This lik natasha represent retroperitoneal fibrosis. 3. Severe right renal atrophy. 4. Chronic left perinephric inflammatory change/edema with mild fullness in the left renal collecting system. No hydronephrosis. 5. Additional chronic findings as described above. ACT 112: Negative or not required by law. Electronically signed by: Marquez Malone M.D. 10/27/2020 8:00 AM
[2020-10-27] MEDS: PANTOprazole 40 MG TAB PO SCH ×2 (08:12→19:55)
--- NOTE | 2020-10-27 08:36 | XRay Report ---
SINGLE VIEW CHEST CLINICAL HISTORY: Fever. FINDINGS: An AP, portable, upright chest radiograph is compared to study dated 01/19/2020 and correlat ed with chest CT dated 05/02/2020. The examination is degraded by portable technique and apical lordo tic positioning. The heart is enlarged noting atherosclerotic calcification of the thoracic aorta. A thoracic aortic stent graft is in place. Emphysema and chronic interstitial thickening is similar to previous. No airspace consolidation or large pleural effusion is identified. Foci of scarring/atelect asis are noted at the lung bases. No pneumothorax is seen. The skeletal structures are osteopenic. Th e bony thorax is grossly intact. IMPRESSION: 1. Cardiomegaly and emphysema with no acute cardiopulmonary abnormality. 2. A thoracic aortic stent graft is in place. ACT 112: Negative or not required by law. Electronically signed by: Italo Smith M.D. 10/27/2020 8:34 AM
--- NOTE | 2020-10-27 10:20 | Gastrointestinal Consultation ---
Date of Consultation October 27, 2020 Assessment & Plan (1) Upper abdominal pain: 69-year-old male with history of cholangitis, choledocholithiasis S/P stone extraction and CBD stent placement which was later removed, now presenting with upper abdominal pain and elevated bilirubin, symptoms reminiscent to him of when he had bile duct stone. On exam, abdomen soft, nontender at present; does not appear cholangitic. - He is NPO; will plan for MRCP today - Analgesia as needed - Antiemetics as needed - Trend LFTs, WBC - Supportive care with IVF - Okay for daily PPI - Further recommendations to follow MRI Thank you for allowing us to participate in the care of this patient. Please call with any acute changes, questions or concerns. Please see addendum below with additional recommendation from my supervising physician. (2) Total bilirubin, elevated: Supervising Physician Co-Signing Physician Notes I have seen and examined the patient and discussed the management with Siri Cherry PA-C. Consult for abd pain, tb elevation, prior history of ercp done in 01/22 for cholangitis. Complicated medical history as documented in the HPI portion Reports subjective fevers, vague abdominal pain that has improved after increase in oxycontin dose this am. Takes narcotic prn as an outpatient. Labs reviewed - tb elevation, wbc elevation CT a/p reviewed and no reports of eh biliary dilation- will obtain MRCP. Pending MRCP results, further plan of care. Consider abx if fevers and or rising wbc count or hypotension. Currently hypertensive. History of Present Illness Reason for Consultation: abdominal pain, hyperbilirubinemia Requesting Physician: Dr. 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 with lokesh-op course complicated by bowel Ischemia requiring left hemicolectomy and colostomy, postop renal failure requiring hemodialysis, history of open EVAR of descending thoracic aortic aneurysm 11/2016, colostomy takedown 07/2018 and ileostomy reversal on 10/2018, cholecystectomy 12/2018, residual CKD stage III, T2DM, ISABELLE intolerant to CPAP, history of TIA, CAD, HTN, HLD, large traction lower esophageal diverticulum, h/o cholangitis/choledocholithiasis 01/2020 s/p EGD/ERCP requiring CBD with subsequent removal, admitted yesterday after presenting with back pain for several days migrating to the upper abd pain, fever; symptoms felt reminiscent of his biliary stone. CTAP with no acute findings however did not describe bile ducts. GI asked to evaluate for abd pain and elevated bilirubin. Overnight tbili incr'd to 2.2, transaminases and ALP WNL, WBC 12.5. Abdominal pain continues to wax and wane, can be quite severe at times. He has been afebrile, no tachycardia. No nausea vomiting, hematemesis, melena or hematochezia, chest pain or shortness of breath. He drinks few alcoholic drinks a month, uses occasional marijuana, and oxycodone as an outpatient as needed. Allergies Allergy/AdvReac Type Severity Reaction Status Date / Time tramadol AdvReac Unknown HIVES Verified 10/26/20 21:58 clotrimazole AdvReac Rash Verified 10/26/20 21:58 Home Medications Medication Instructions Recorded Confirmed Type hydroxyzine HCl 10 mg tablet 10 mg PO ONCE PRN tab 07/17/19 10/26/20 History docusate sodium 100 mg PO DAILY PRN 01/19/20 10/26/20 History omeprazole 20 mg PO QAM 01/19/20 10/26/20 History oxycodone 5 mg PO Q8 PRN 01/19/20 10/26/20 History atorvastatin 10 mg PO HS 02/19/20 10/26/20 History aspirin [Aspir-81] 81 mg PO HS 05/02/20 10/26/20 History ibuprofen 400 mg PO Q6H PRN 05/02/20 10/26/20 History ergocalciferol (vitamin D2) 1,250 50,000 unit PO MONTHLY #12 cap 06/18/20 10/26/20 Rx mcg (50,000 unit) capsule clonazepam 1 mg tablet 1 mg PO HS PRN #30 tab 07/09/20 10/26/20 Rx metoprolol succinate 25 mg 37.5 mg PO BID #270 tab 10/02/20 10/26/20 Rx tablet,extended release 24 hr Patient History Medical History (Updated 10/27/20 @ 00:06 by Ashok Esqueda M.D.) AAA (abdominal aortic aneurysm) "stage 4 rare vasculitis s/p AAA repair performed by Dr. Martinez Jerome 02/03/16 " Basal cell carcinoma (BCC) BPH (benign prostatic hyperplasia) CAD (coronary artery disease) Chronic kidney disease, stage III (moderate) Dyslipidemia Esophageal diverticulum GERD (gastroesophageal reflux disease) History of empyema of pleura History of nephrolithiasis History of renal dialysis required dialysis for short period following AAA repair 2015 History of stroke 5 years ago; no residual Hypertension IgG4 related disease follows w/ [facility] Ischemia of kidney during AAA repair 2015; currently w/ one functioning kidney Obstructive sleep apnea Intolerant to CPAP Restless leg syndrome Silent myocardial infarction h/o Spinal stenosis T2DM (type 2 diabetes mellitus) Diet controlled Vasculitis involving renal artery Vitamin D deficiency Surgical History History of AAA (abdominal aortic aneurysm) repair s/p TEVAR 2016 for 8 cm thoracic aneurysm after prior open repair of 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 History of cataract surgery History of cholecystectomy 12/2018 History of colonoscopy History of colostomy History of colostomy reversal ileostomy reversal 10/2018 History of ERCP History of esophagogastroduodenoscopy (EGD) History of lung surgery Secondary to empyema History of partial colectomy "L hemicolectomy with colostomy 2* mesenteric ischemia s/p vascular surgery 02/03/16" History of thoracic aortic aneurysm repair stent S/P Mohs surgery for basal cell carcinoma x 2 Family History Father Diabetes Other Colorectal cancer No family history of adverse response to anesthesia Obstructive sleep apnea Social History Smoking Status: Former smoker Tobacco Type: Cigarettes Cigarettes Per Day: 1 PPD; Smoking End Date: 5 years ago; Second Hand Exposure: No; Do You Dip or Chew Tobacco: No; Tobacco Cessation Education Requested by Patient: No Hx Alcohol Use: Yes Alcohol type: beer Alcohol Intake Frequency: Monthly or Less Hx Substance Use: No Preferred Language: Belarusian Communication Ability: Impaired Double Needle Stitcher Required: No Beliefs That Will Affect Care: None marital status: Current Living Situation: Spouse Current Living Situation Comment: Lives w/ spouse at home current occupational status: retired Other Information That Helps Us Care for You: Yes Feels Safe at Home: Yes Safety Concerns: Feels Safe At This Time Assistive Devices: Denture - Upper and Denture - Lower Review of Systems Review of Systems: All systems reviewed & are unremarkable except as noted in HPI & below Physical Exam Constitutional: WD/WN, vitals as above Eyes: + anicteric sclerae Respiratory: normal respiratory effort, lungs clear to auscultation Cardiovascular: RRR, no murmur, no edema Gastrointestinal (Abdomen): Inspection/Auscultation: abdomen normal to inspection and normal bowel sounds; abdomen not distended Percussion/Palpation: abdomen soft; abdomen nontender, no guarding, abdomen not rigid and no abdominal mass Skin: no rashes, warm and dry no jaundice Psychiatric: A+Ox3, euthymic affect Results & Data ([facility]) Vital Signs (Past 12 Hours) Vital Signs Temp Pulse Pulse Resp BP BP Pulse Ox 10/27/20 07:26 37.3 C 86 20 174/82 H 94 10/27/20 02:01 36.8 C 82 18 147/76 H 96 10/26/20 23:57 73 18 132/80 97 10/26/20 23:30 71 14 97 10/26/20 23:00 69 17 96 10/26/20 22:34 71 14 97 Laboratory Results 10/27/20 10/27/20 10/27/20 Range/Units 07:04 07:04 07:04 WBC 12.52 H (4.8-10.8) K/uL RBC 5.62 (4.7-6.1) M/uL Hgb 16.5 (14.0-18.0) g/dL Hct 49.2 (42-52) % MCV 87.5 (80-100) fL MCH 29.4 (25-34) pg MCHC 33.5 (32-36) g/dL RDW Std Deviation 46.8 H (36.4-46.3) fL RDW Coeff of Justina 14.6 H (11.5-14.5) % Plt Count 160 (130-400) K/uL MPV 10.7 H (7.4-10.4) fL Immature Gran % (Auto) 0.4 % Neut % (Auto) 71.8 % Lymph % (Auto) 15.1 % [place] % (Auto) 11.1 % Eos % (Auto) 1.4 % Baso % (Auto) 0.2 % Neut # (Auto) 8.99 H (1.4-6.5) K/uL Lymph # (Auto) 1.89 (1.2-3.4) K/uL [place] # (Auto) 1.39 H (0.11-0.59) K/uL Eos # (Auto) 0.18 (0-0.5) K/uL Baso # (Auto) 0.02 (0-0.2) K/uL Immature Gran # (Auto) 0.05 H (0.00-0.02) K/uL Sodium 139 (136-145) mmol/L Potassium 4.7 (3.5-5.1) mmol/L Chloride 109 H (98-107) mmol/L Carbon Dioxide 26 (21-32) mmol/L Anion Gap 4.0 (3-11) BUN 19 H (7-18) mg/dl Creatinine 1.61 H (0.6-1.4) mg/dl Est Cr Clr Drug Dosing 49.1 ml/min Est GFR ( Amer) 50.2 ml/min Est GFR (Non-Af Amer) 43.3 ml/min BUN/Creatinine Ratio 12.0 (10-20) Glucose 168 H (70-99) mg/dl POC Glucose (70-99) mg/dl Lactate (0.4-2.0) mmol/L Calcium 9.0 (8.5-10.1) mg/dl Magnesium (1.8-2.4) mg/dl Total Bilirubin 2.2 H (0.2-1) mg/dl Direct Bilirubin 0.6 H (0-0.2) mg/dl AST 12 L (15-37) U/L ALT 24 (12-78) U/L Alkaline Phosphatase 79 (45-117) U/L Troponin I (0-0.045) ng/ml Total Protein 7.3 (6.4-8.2) gm/dl Albumin 3.3 L (3.4-5.0) gm/dl Globulin 4.0 (2.5-4.0) gm/dl Albumin/Globulin Ratio 0.8 L (0.9-2) Lipase (73-393) U/L Procalcitonin (0-0.5) ng/ml Urine Color Urine Appearance (Clear) Urine pH (4.5-7.5) Ur Specific [place] (1.000-1.030) Urine Protein (Negative) Urine Glucose (UA) (Negative) Urine Ketones (Negative) Urine Blood (Negative) Urine Nitrite (Negative) Urine Bilirubin (Negative) Urine Urobilinogen (Negative) Ur Leukocyte Esterase (Negative) Urine WBC (Auto) (0-5) /hpf Urine RBC (Auto) (0-4) /hpf U Hyaline Cast (Auto) (0-5) /lpf U Epithel Cells (Auto) (0-5) /lpf Urine Bacteria (Auto) (Negative) COVID-19 Eval Order SARS-CoV-2 (PCR) (Negative) 10/27/20 10/27/20 10/26/20 Range/Units 05:49 02:05 22:10 WBC (4.8-10.8) K/uL RBC (4.7-6.1) M/uL Hgb (14.0-18.0) g/dL Hct (42-52) % MCV (80-100) fL MCH (25-34) pg MCHC (32-36) g/dL RDW Std Deviation (36.4-46.3) fL RDW Coeff of Justina (11.5-14.5) % Plt Count (130-400) K/uL MPV (7.4-10.4) fL Immature Gran % (Auto) % Neut % (Auto) % Lymph % (Auto) % [place] % (Auto) % Eos % (Auto) % Baso % (Auto) % Neut # (Auto) (1.4-6.5) K/uL Lymph # (Auto) (1.2-3.4) K/uL [place] # (Auto) (0.11-0.59) K/uL Eos # (Auto) (0-0.5) K/uL Baso # (Auto) (0-0.2) K/uL Immature Gran # (Auto) (0.00-0.02) K/uL Sodium (136-145) mmol/L Potassium (3.5-5.1) mmol/L Chloride (98-107) mmol/L Carbon Dioxide (21-32) mmol/L Anion Gap (3-11) BUN (7-18) mg/dl Creatinine (0.6-1.4) mg/dl Est Cr Clr Drug Dosing ml/min Est GFR ( Amer) ml/min Est GFR (Non-Af Amer) ml/min BUN/Creatinine Ratio (10-20) Glucose (70-99) mg/dl POC Glucose 177 H 174 H (70-99) mg/dl Lactate (0.4-2.0) mmol/L Calcium (8.5-10.1) mg/dl Magnesium (1.8-2.4) mg/dl Total Bilirubin (0.2-1) mg/dl Direct Bilirubin (0-0.2) mg/dl AST (15-37) U/L ALT (12-78) U/L Alkaline Phosphatase (45-117) U/L Troponin I (0-0.045) ng/ml Total Protein (6.4-8.2) gm/dl Albumin (3.4-5.0) gm/dl Globulin (2.5-4.0) gm/dl Albumin/Globulin Ratio (0.9-2) Lipase (73-393) U/L Procalcitonin (0-0.5) ng/ml Urine Color Dark Yellow Urine Appearance Turbid A (Clear) Urine pH 5.0 (4.5-7.5) Ur Specific [place] 1.026 (1.000-1.030) Urine Protein 1+ H (Negative) Urine Glucose (UA) 1+ H (Negative) Urine Ketones Trace H (Negative) Urine Blood Negative (Negative) Urine Nitrite Negative (Negative) Urine Bilirubin 1+ H (Negative) Urine Urobilinogen Negative (Negative) Ur Leukocyte Esterase Negative (Negative) Urine WBC (Auto) 1-5 (0-5) /hpf Urine RBC (Auto) 0-4 (0-4) /hpf U Hyaline Cast (Auto) 0 (0-5) /lpf U Epithel Cells (Auto) 5-10 H (0-5) /lpf Urine Bacteria (Auto) Negative (Negative) COVID-19 Eval Order SARS-CoV-2 (PCR) (Negative) 10/26/20 10/26/20 10/26/20 Range/Units 22:02 22:00 22:00 WBC (4.8-10.8) K/uL RBC (4.7-6.1) M/uL Hgb (14.0-18.0) g/dL Hct (42-52) % MCV (80-100) fL MCH (25-34) pg MCHC (32-36) g/dL RDW Std Deviation (36.4-46.3) fL RDW Coeff of Justina (11.5-14.5) % Plt Count (130-400) K/uL MPV (7.4-10.4) fL Immature Gran % (Auto) % Neut % (Auto) % Lymph % (Auto) % [place] % (Auto) % Eos % (Auto) % Baso % (Auto) % Neut # (Auto) (1.4-6.5) K/uL Lymph # (Auto) (1.2-3.4) K/uL [place] # (Auto) (0.11-0.59) K/uL Eos # (Auto) (0-0.5) K/uL Baso # (Auto) (0-0.2) K/uL Immature Gran # (Auto) (0.00-0.02) K/uL Sodium 137 (136-145) mmol/L Potassium 4.2 (3.5-5.1) mmol/L Chloride 107 (98-107) mmol/L Carbon Dioxide 25 (21-32) mmol/L Anion Gap 5.0 (3-11) BUN 20 H (7-18) mg/dl Creatinine 1.88 H (0.6-1.4) mg/dl Est Cr Clr Drug Dosing 42.3 ml/min Est GFR ( Amer) 41.6 ml/min Est GFR (Non-Af Amer) 35.9 ml/min BUN/Creatinine Ratio 10.8 (10-20) Glucose 194 H (70-99) mg/dl POC Glucose (70-99) mg/dl Lactate 1.1 (0.4-2.0) mmol/L Calcium 9.3 (8.5-10.1) mg/dl Magnesium 2.4 (1.8-2.4) mg/dl Total Bilirubin 1.8 H (0.2-1) mg/dl Direct Bilirubin (0-0.2) mg/dl AST 13 L (15-37) U/L ALT 23 (12-78) U/L Alkaline Phosphatase 86 (45-117) U/L Troponin I < 0.015 (0-0.045) ng/ml Total Protein 7.8 (6.4-8.2) gm/dl Albumin 3.5 (3.4-5.0) gm/dl Globulin 4.3 H (2.5-4.0) gm/dl Albumin/Globulin Ratio 0.8 L (0.9-2) Lipase 80 (73-393) U/L Procalcitonin < 0.05 (0-0.5) ng/ml Urine Color Urine Appearance (Clear) Urine pH (4.5-7.5) Ur Specific [place] (1.000-1.030) Urine Protein (Negative) Urine Glucose (UA) (Negative) Urine Ketones (Negative) Urine Blood (Negative) Urine Nitrite (Negative) Urine Bilirubin (Negative) Urine Urobilinogen (Negative) Ur Leukocyte Esterase (Negative) Urine WBC (Auto) (0-5) /hpf Urine RBC (Auto) (0-4) /hpf U Hyaline Cast (Auto) (0-5) /lpf U Epithel Cells (Auto) (0-5) /lpf Urine Bacteria (Auto) (Negative) COVID-19 Eval Order SARS-CoV-2 (PCR) (Negative) 10/26/20 10/26/20 10/26/20 Range/Units 22:00 21:56 21:56 WBC 11.12 H (4.8-10.8) K/uL RBC 5.81 (4.7-6.1) M/uL Hgb 16.9 (14.0-18.0) g/dL Hct 50.7 (42-52) % MCV 87.3 (80-100) fL MCH 29.1 (25-34) pg MCHC 33.3 (32-36) g/dL RDW Std Deviation 46.7 H (36.4-46.3) fL RDW Coeff of Justina 14.6 H (11.5-14.5) % Plt Count 144 (130-400) K/uL MPV 10.5 H (7.4-10.4) fL Immature Gran % (Auto) 0.3 % Neut % (Auto) 67.6 % Lymph % (Auto) 15.4 % [place] % (Auto) 14.5 % Eos % (Auto) 2.0 % Baso % (Auto) 0.2 % Neut # (Auto) 7.53 H (1.4-6.5) K/uL Lymph # (Auto) 1.71 (1.2-3.4) K/uL [place] # (Auto) 1.61 H (0.11-0.59) K/uL Eos # (Auto) 0.22 (0-0.5) K/uL Baso # (Auto) 0.02 (0-0.2) K/uL Immature Gran # (Auto) 0.03 H (0.00-0.02) K/uL Sodium (136-145) mmol/L Potassium (3.5-5.1) mmol/L Chloride (98-107) mmol/L Carbon Dioxide (21-32) mmol/L Anion Gap (3-11) BUN (7-18) mg/dl Creatinine (0.6-1.4) mg/dl Est Cr Clr Drug Dosing ml/min Est GFR ( Amer) ml/min Est GFR (Non-Af Amer) ml/min BUN/Creatinine Ratio (10-20) Glucose (70-99) mg/dl POC Glucose (70-99) mg/dl Lactate (0.4-2.0) mmol/L Calcium (8.5-10.1) mg/dl Magnesium (1.8-2.4) mg/dl Total Bilirubin (0.2-1) mg/dl Direct Bilirubin (0-0.2) mg/dl AST (15-37) U/L ALT (12-78) U/L Alkaline Phosphatase (45-117) U/L Troponin I (0-0.045) ng/ml Total Protein (6.4-8.2) gm/dl Albumin (3.4-5.0) gm/dl Globulin (2.5-4.0) gm/dl Albumin/Globulin Ratio (0.9-2) Lipase (73-393) U/L Procalcitonin (0-0.5) ng/ml Urine Color Urine Appearance (Clear) Urine pH (4.5-7.5) Ur Specific [place] (1.000-1.030) Urine Protein (Negative) Urine Glucose (UA) (Negative) Urine Ketones (Negative) Urine Blood (Negative) Urine Nitrite (Negative) Urine Bilirubin (Negative) Urine Urobilinogen (Negative) Ur Leukocyte Esterase (Negative) Urine WBC (Auto) (0-5) /hpf Urine RBC (Auto) (0-4) /hpf U Hyaline Cast (Auto) (0-5) /lpf U Epithel Cells (Auto) (0-5) /lpf Urine Bacteria (Auto) (Negative) COVID-19 Eval Order Covid19 at [facility] SARS-CoV-2 (PCR) NEGATIVE (Negative) Diagnostic Findings CTAP: 1. No change in the dilated and debris filled distal esophagus with associated esophageal wall thickening. This could represent a partially visualized esophageal diverticulum. 2. No change in the soft tissue thickening surrounding the 3.7 cm abdominal aortic aneurysm. 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 3. Severe right renal atrophy. 4. Chronic left perinephric inflammatory change/edema with mild fullness in the left renal collecting system. No hydronephrosis. 5. Additional chronic findings as described above.
--- NOTE | 2020-10-27 11:44 | Hospitalist Progress Note ---
Date of Service October 27, 2020 Assessment & Plan (1) Upper abdominal pain: Differentials include : distal esophagitis on CT initial read rule out recurrent bile duct stone --History of cholangitis, choledocholithiasis --Positive elevated bilirubin --GI consulted MRCP ordered: 1. The gallbladder is surgically absent. 2. There is no evidence of choledocholithiasis. 3. The liver is cirrhotic and heterogeneous. 4. Trace pleural effusions. 5. There is a moderate hiatal hernia versus dilated distal esophagus which is thick-walled and filled with debris. 6. Additional chronic findings as above. --Abdominal pain seems to be improving with analgesics --Awaiting further recommendations per GI --Continue as needed analgesics hx presumptive CAD, hx TIA, hx of thoracoabdominal aortic aneurysm status post surgery HTN IgG4 related disease/vasculitis as per records, currently in remission DM 2 diet-controlled CKD, creatinine at baseline mood disorder past tobacco abuse DVT prophylaxis. Heparin subcu Full code plan of care discussed with patient and his in detail and at length all questions answered they are understanding, agreeable, comfortable with the plan of care Admission and Anticipated Discharge Date Admission Date: October 27, 2020 Subjective Follow-up for right upper quadrant pain right upper quadrant pain, etc. Seen resting in bed, comfortable, not in distress States abdominal pain is well controlled by pain medication Denies nausea vomiting, no BMs yet, positive flatus Denies fevers or chills No headache, dizziness, chest pain, shortness of breath, palpitations No other symptoms Review of Systems Review of Systems: All systems reviewed & are unremarkable except as noted in Subjective Physical Exam Physical Exam: General- oriented x 3, not in distress, speaks in sentences with no effort or accessory muscle use Head- atraumatic Eyes- PERRL, EOMI, anicteric ENT- oropharynx clear Neck- supple, no JVD, no adenopathy, no thyromegaly; carotids +2/2, no bruits appreciated Lungs- clear to auscultation bilaterally, no rales/wheezes Heart- normal rate, regular rhythm; no murmur, no gallop, no rub appreciated Abdomen- normal bowel sounds, nondistended, soft, nontender, no masses or hepatosplenomegaly Extremities- no pretibial edema, no calf tenderness; peripheral pulses intact Neuro- alert, oriented x 3; CN 2-12 grossly intact; motor 5/5 bilaterally;sensation 100% on all extremities; no other gross focal neurologic deficits Skin- warm & dry Results & Data Results & Data ([facility]) Vital Signs (Past 12 Hours) Vital Signs Temp Pulse Pulse Resp BP BP Pulse Ox 10/27/20 07:26 37.3 C 86 20 174/82 H 94 10/27/20 02:01 36.8 C 82 18 147/76 H 96 10/26/20 23:57 73 18 132/80 97 all noted and reviewed including below Laboratory Results Laboratory Results - last 24 hr 10/26/20 10/26/20 10/26/20 21:56 21:56 22:00 WBC 11.12 H RBC 5.81 Hgb 16.9 Hct 50.7 MCV 87.3 MCH 29.1 MCHC 33.3 RDW Std Deviation 46.7 H RDW Coeff of Justina 14.6 H Plt Count 144 MPV 10.5 H Immature Gran % (Auto) 0.3 Neut % (Auto) 67.6 Lymph % (Auto) 15.4 Lyman % (Auto) 14.5 Eos % (Auto) 2.0 Baso % (Auto) 0.2 Neut # (Auto) 7.53 H Lymph # (Auto) 1.71 Lyman # (Auto) 1.61 H Eos # (Auto) 0.22 Baso # (Auto) 0.02 Immature Gran # (Auto) 0.03 H PT INR Sodium Potassium Chloride Carbon Dioxide Anion Gap BUN Creatinine Est Cr Clr Drug Dosing Est GFR ( Amer) Est GFR (Non-Af Amer) BUN/Creatinine Ratio Glucose POC Glucose Lactate Calcium Magnesium Total Bilirubin Direct Bilirubin AST ALT Alkaline Phosphatase Troponin I Total Protein Albumin Globulin Albumin/Globulin Ratio Lipase Procalcitonin Urine Color Urine Appearance Urine pH Ur Specific [place] Urine Protein Urine Glucose (UA) Urine Ketones Urine Blood Urine Nitrite Urine Bilirubin Urine Urobilinogen Ur Leukocyte Esterase Urine WBC (Auto) Urine RBC (Auto) U Hyaline Cast (Auto) U Epithel Cells (Auto) Urine Bacteria (Auto) COVID-19 Eval Order Covid19 at [facility] SARS-CoV-2 (PCR) NEGATIVE 10/26/20 10/26/20 10/26/20 22:00 22:00 22:02 WBC RBC Hgb Hct MCV MCH MCHC RDW Std Deviation RDW Coeff of Justina Plt Count MPV Immature Gran % (Auto) Neut % (Auto) Lymph % (Auto) Lyman % (Auto) Eos % (Auto) Baso % (Auto) Neut # (Auto) Lymph # (Auto) Lyman # (Auto) Eos # (Auto) Baso # (Auto) Immature Gran # (Auto) PT INR Sodium 137 Potassium 4.2 Chloride 107 Carbon Dioxide 25 Anion Gap 5.0 BUN 20 H Creatinine 1.88 H Est Cr Clr Drug Dosing 42.3 Est GFR ( Amer) 41.6 Est GFR (Non-Af Amer) 35.9 BUN/Creatinine Ratio 10.8 Glucose 194 H POC Glucose Lactate 1.1 Calcium 9.3 Magnesium 2.4 Total Bilirubin 1.8 H Direct Bilirubin AST 13 L ALT 23 Alkaline Phosphatase 86 Troponin I < 0.015 Total Protein 7.8 Albumin 3.5 Globulin 4.3 H Albumin/Globulin Ratio 0.8 L Lipase 80 Procalcitonin < 0.05 Urine Color Urine Appearance Urine pH Ur Specific [place] Urine Protein Urine Glucose (UA) Urine Ketones Urine Blood Urine Nitrite Urine Bilirubin Urine Urobilinogen Ur Leukocyte Esterase Urine WBC (Auto) Urine RBC (Auto) U Hyaline Cast (Auto) U Epithel Cells (Auto) Urine Bacteria (Auto) COVID-19 Eval Order SARS-CoV-2 (PCR) 10/26/20 10/27/20 10/27/20 22:10 02:05 05:49 WBC RBC Hgb Hct MCV MCH MCHC RDW Std Deviation RDW Coeff of Justina Plt Count MPV Immature Gran % (Auto) Neut % (Auto) Lymph % (Auto) Lyman % (Auto) Eos % (Auto) Baso % (Auto) Neut # (Auto) Lymph # (Auto) Lyman # (Auto) Eos # (Auto) Baso # (Auto) Immature Gran # (Auto) PT INR Sodium Potassium Chloride Carbon Dioxide Anion Gap BUN Creatinine Est Cr Clr Drug Dosing Est GFR ( Amer) Est GFR (Non-Af Amer) BUN/Creatinine Ratio Glucose POC Glucose 174 H 177 H Lactate Calcium Magnesium Total Bilirubin Direct Bilirubin AST ALT Alkaline Phosphatase Troponin I Total Protein Albumin Globulin Albumin/Globulin Ratio Lipase Procalcitonin Urine Color Dark Yellow Urine Appearance Turbid A Urine pH 5.0 Ur Specific [place] 1.026 Urine Protein 1+ H Urine Glucose (UA) 1+ H Urine Ketones Trace H Urine Blood Negative Urine Nitrite Negative Urine Bilirubin 1+ H Urine Urobilinogen Negative Ur Leukocyte Esterase Negative Urine WBC (Auto) 1-5 Urine RBC (Auto) 0-4 U Hyaline Cast (Auto) 0 U Epithel Cells (Auto) 5-10 H Urine Bacteria (Auto) Negative COVID-19 Eval Order SARS-CoV-2 (PCR) 10/27/20 10/27/20 10/27/20 07:04 07:04 07:04 WBC 12.52 H RBC 5.62 Hgb 16.5 Hct 49.2 MCV 87.5 MCH 29.4 MCHC 33.5 RDW Std Deviation 46.8 H RDW Coeff of Justina 14.6 H Plt Count 160 MPV 10.7 H Immature Gran % (Auto) 0.4 Neut % (Auto) 71.8 Lymph % (Auto) 15.1 Lyman % (Auto) 11.1 Eos % (Auto) 1.4 Baso % (Auto) 0.2 Neut # (Auto) 8.99 H Lymph # (Auto) 1.89 Lyman # (Auto) 1.39 H Eos # (Auto) 0.18 Baso # (Auto) 0.02 Immature Gran # (Auto) 0.05 H PT INR Sodium 139 Potassium 4.7 Chloride 109 H Carbon Dioxide 26 Anion Gap 4.0 BUN 19 H Creatinine 1.61 H Est Cr Clr Drug Dosing 49.1 Est GFR ( Amer) 50.2 Est GFR (Non-Af Amer) 43.3 BUN/Creatinine Ratio 12.0 Glucose 168 H POC Glucose Lactate Calcium 9.0 Magnesium Total Bilirubin 2.2 H Direct Bilirubin 0.6 H AST 12 L ALT 24 Alkaline Phosphatase 79 Troponin I Total Protein 7.3 Albumin 3.3 L Globulin 4.0 Albumin/Globulin Ratio 0.8 L Lipase Procalcitonin Urine Color Urine Appearance Urine pH Ur Specific [place] Urine Protein Urine Glucose (UA) Urine Ketones Urine Blood Urine Nitrite Urine Bilirubin Urine Urobilinogen Ur Leukocyte Esterase Urine WBC (Auto) Urine RBC (Auto) U Hyaline Cast (Auto) U Epithel Cells (Auto) Urine Bacteria (Auto) COVID-19 Eval Order SARS-CoV-2 (PCR) 10/27/20 10/27/20 10/27/20 11:28 15:53 16:22 WBC RBC Hgb Hct MCV MCH MCHC RDW Std Deviation RDW Coeff of Justina Plt Count MPV Immature Gran % (Auto) Neut % (Auto) Lymph % (Auto) Lyman % (Auto) Eos % (Auto) Baso % (Auto) Neut # (Auto) Lymph # (Auto) Lyman # (Auto) Eos # (Auto) Baso # (Auto) Immature Gran # (Auto) PT 10.9 INR 1.1 Sodium Potassium Chloride Carbon Dioxide Anion Gap BUN Creatinine Est Cr Clr Drug Dosing Est GFR ( Amer) Est GFR (Non-Af Amer) BUN/Creatinine Ratio Glucose POC Glucose 133 H 125 H Lactate Calcium Magnesium Total Bilirubin Direct Bilirubin AST ALT Alkaline Phosphatase Troponin I Total Protein Albumin Globulin Albumin/Globulin Ratio Lipase Procalcitonin Urine Color Urine Appearance Urine pH Ur Specific [place] Urine Protein Urine Glucose (UA) Urine Ketones Urine Blood Urine Nitrite Urine Bilirubin Urine Urobilinogen Ur Leukocyte Esterase Urine WBC (Auto) Urine RBC (Auto) U Hyaline Cast (Auto) U Epithel Cells (Auto) Urine Bacteria (Auto) COVID-19 Eval Order SARS-CoV-2 (PCR)
--- NOTE | 2020-10-27 13:21 | Electrocardiogram Report ---
Test Reason : Blood Pressure : / mmHG Vent. Rate : 071 BPM Atrial Rate : 071 BPM P-R Int : 208 ms QRS Dur : 100 ms QT Int : 376 ms P-R-T Axes : 060 -39 023 degrees QTc Int : 408 ms Normal sinus rhythm Possible Left atrial enlargement Left axis deviation Inferior infarct (cited on or before 19-JAN-2020) Poor R wave progression, consider anterior OK vs. lead placement vs. LVH Abnormal ECG When compared with ECG of 02-MAY-2020 13:08, No significant change was found Confirmed by Rian Clark ([id number]) on 10/27/2020 1:21:16 PM Referred By: REFERRED SELF Confirmed By:Rian Clark
--- NOTE | 2020-10-27 14:07 | Magnetic Resonance Report ---
MRCP CLINICAL HISTORY: Elevated bilirubin. History of choledocholithiasis. COMPARISON STUDY: Abdominal CT dated 10/26/2020. TECHNIQUE: Abdominal MRCP is performed utilizing various T2-weighted sequences in the axial and coron al planes. 3-D reformats are created and assessed. IV contrast was not administered for this examinat ion. The examination is degraded by motion artifact. FINDINGS: The gallbladder is surgically absent. There is no intrahepatic biliary ductal dilatation. The common bile duct measures up to 8 mm in diameter. No intraluminal filling defects are identified to suggest choledocholithiasis. The pancreatic duct is normal in caliber. The liver is cirrhotic in morphology and heterogeneous in signal intensity. There is nodularity of th e hepatic surface contour. The unenhanced spleen and adrenal glands are grossly normal. The pancreas is atrophic. There is markedly asymmetric cortical atrophy of the right kidney as compared to the lef t. There is persistent fullness of the left renal collecting system. Bilateral renal cysts measure up to 2.3 cm. There is no abdominal ascites. No bowel obstruction is seen. Postoperative change is sugg ested involving the abdominal aorta which appears dilated. This measures up to 3.1 cm in diameter. So ft tissue thickening around the abdominal aorta and proximal iliac vessels is unchanged and may repre sent retroperitoneal fibrosis. There are trace pleural effusions. There is a hiatal hernia versus dis tention of the distal esophagus which is thick-walled and filled with debris. IMPRESSION: 1. The gallbladder is surgically absent. 2. There is no evidence of choledocholithiasis. 3. The liver is cirrhotic and heterogeneous. 4. Trace pleural effusions. 5. There is a moderate hiatal hernia versus dilated distal esophagus which is thick-walled and filled with debris. 6. Additional chronic findings as above. Dictated: 10/27/2020 1:34 PM Transcribed: 10/27/2020 2:02 PM Kassandra [id number] BRYAN_Oscar Electronically signed by: Italo mSith M.D. 10/27/2020 2:06 PM
[2020-10-27] MEDS ORDERED: Nursing to Pharmacy Communication SCH (15:45)
[2020-10-27 16:42] LABS: INR 1.1 (0.9-1.1); Prothrombin Time 10.9 Seconds (9.0-12.0)
[2020-10-27] MEDS: ATORVASTATIN 10 MG TAB PO SCH (19:53)
[2020-10-27] MEDS: ASPIRIN 81 MG ECTAB PO SCH (19:53)
[2020-10-27] MEDS: INSULIN GLARGINE SOLOSTAR 100 UNITS/ML 3 ML PEN SC SCH (20:39)
[2020-10-28] MEDS: HYDROmorphone INJ 0.5 MG/0.5 ML SYR IV PRN (00:21)
[2020-10-28] MEDS: oxyCODONE HCL IR 5 MG TAB (IMMEDIATE RELEASE) PO PRN ×3 (03:51→23:16)
[2020-10-28] MEDS: HEPARIN SOD 5,000 UNIT/0.5 ML VIAL SQ SCH ×3 (05:06→21:22)
[2020-10-28] MEDS: PANTOprazole 40 MG TAB PO SCH ×2 (08:23→21:19)
[2020-10-28] MEDS: METOPROLOL SUCC 25MG EXT REL TAB PO SCH ×2 (08:23→21:20)
[2020-10-28] MEDS: INSULIN ASPART 100 UNITS/ML 3 ML PEN SC SCH ×4 (08:24→21:33)
[2020-10-28 08:34] LABS: Basophils # (auto) 0.02 K/uL (0-0.2); Basophils % (auto) 0.2 %; Eosinophils # (auto) 0.14 K/uL (0-0.5); Eosinophils % (auto) 1.2 %; Hematocrit (blood only) 45.4 % (42-52); Hemoglobin 15.2 g/dL (14.0-18.0); Immature Granulocytes # (auto) 0.03 K/uL (0.00-0.02); Immature Granulocytes % (auto) 0.3 %; Lymphocytes # (auto) 1.79 K/uL (1.2-3.4); Lymphocytes % (auto) 15.6 %; Mean Corpuscular Hemoglobin 29.3 pg (25-34); Mean Corpuscular Hgb Conc 33.5 g/dL (32-36); Mean Corpuscular Volume 87.5 fL (80-100); Mean Platelet Volume 10.9 fL (7.4-10.4); Monocytes # (auto) 1.72 K/uL (0.11-0.59); Neutrophils # (auto) 7.77 K/uL (1.4-6.5); Neutrophils % (auto) 67.7 %; Platelet Count 163 K/uL (130-400); RDW Coefficient of Variation 14.5 % (11.5-14.5); RDW Standard Deviation 46.4 fL (36.4-46.3); Red Blood Count 5.19 M/uL (4.7-6.1); White Blood Count 11.47 K/uL (4.8-10.8)
[2020-10-28 09:10] LABS: BUN Creatinine Ratio 9.8 (10-20); Bilirubin Direct 0.8 mg/dl (0-0.2); Bilirubin,Total 2.6 mg/dl (0.2-1); Calcium 8.6 mg/dl (8.5-10.1); Creatinine Clr Calc Pharmacy 50.1 ml/min; Est GFR (African American) 51.3 ml/min; Est GFR (Non-African American) 44.3 ml/min; Potassium 4.4 mmol/L (3.5-5.1)
--- NOTE | 2020-10-28 11:10 | Gastroenterology Progress Note ---
Date of Service October 28, 2020 Assessment & Plan (1) Upper abdominal pain: 69-year-old male with complicated PMHx history including cholangitis, choledocholithiasis S/P stone extraction and CBD stent placement later removed, now admitted with upper abdominal pain and elevated bilirubin. MRCP with no obvious choledocholithiasis, but did suggest possible cirrhosis. He has a known on large traction diverticulum. Today tbili 2.6, LFTs WNL, WBC 11.4; on exam abdomen soft, nontender at present; does not appear cholangitic. Etiology of elevated bilirubin unclear, but consider possible underlying biliary sludge or small stone, underlying liver disease. - Will review possible need for EUS with endoscopist - Continue analgesia as needed - Antiemetics as needed - Trend LFTs, WBC - Supportive care with IVF - If fevers or elevated WBC, hypotension consider ABX - Okay for daily PPI Thank you for allowing us to participate in the care of this patient. Please call with any acute changes, questions or concerns. Please see addendum below with additional recommendation from my supervising physician. (2) Total bilirubin, elevated: Admission and Anticipated Discharge Date Admission Date: October 27, 2020 Supervising Physician Co-Signing Physician Notes No acute events overnite. PE unchanged- reports no issues with dysphagia. Labs reviewed- wbc count elevation, tb 2.6, db 0.8. MRCP showing cirrhosis which appears new on imaging compared to prior, meld score is low and without ascites- prior history reportedly of alcohol. Agree with further plan of care as below. Subjective Patient seen and examined, chart reviewed. Today still having intermittent bouts of upper abd pain. Tolerated clear liquids. Denies n/v, hematemesis, melena, hematochezia, CP, SOB, fever. Review of Systems Review of Systems: All systems reviewed & are unremarkable except as noted in HPI & below Physical Exam Constitutional: WD/WN, vitals as above Eyes: + anicteric sclerae Respiratory: normal respiratory effort Cardiovascular: Rate/Rhythm: regular rate and regular rhythm Gastrointestinal (Abdomen): Inspection/Auscultation: abdomen normal to inspection and normal bowel sounds; abdomen not distended Percussion/Palpation: abdomen soft; abdomen nontender, no guarding, abdomen not rigid and no abdominal mass Skin: no rashes, warm and dry no jaundice Psychiatric: A+Ox3, euthymic affect Results & Data ([facility]) Vital Signs (Past 12 Hours) Vital Signs Temp Pulse Resp BP Pulse Ox 10/28/20 07:00 37.5 C 88 20 134/77 94 Laboratory Results 10/28/20 10/28/20 10/28/20 Range/Units 08:12 07:47 07:47 WBC 11.47 H (4.8-10.8) K/uL RBC 5.19 (4.7-6.1) M/uL Hgb 15.2 (14.0-18.0) g/dL Hct 45.4 (42-52) % MCV 87.5 (80-100) fL MCH 29.3 (25-34) pg MCHC 33.5 (32-36) g/dL RDW Std Deviation 46.4 H (36.4-46.3) fL RDW Coeff of Justina 14.5 (11.5-14.5) % Plt Count 163 (130-400) K/uL MPV 10.9 H (7.4-10.4) fL Immature Gran % (Auto) 0.3 % Neut % (Auto) 67.7 % Lymph % (Auto) 15.6 % Lawrence % (Auto) 15.0 % Eos % (Auto) 1.2 % Baso % (Auto) 0.2 % Neut # (Auto) 7.77 H (1.4-6.5) K/uL Lymph # (Auto) 1.79 (1.2-3.4) K/uL Lawrence # (Auto) 1.72 H (0.11-0.59) K/uL Eos # (Auto) 0.14 (0-0.5) K/uL Baso # (Auto) 0.02 (0-0.2) K/uL Immature Gran # (Auto) 0.03 H (0.00-0.02) K/uL PT (9.0-12.0) Seconds INR (0.9-1.1) Sodium 135 L (136-145) mmol/L Potassium 4.4 (3.5-5.1) mmol/L Chloride 106 (98-107) mmol/L Carbon Dioxide 23 (21-32) mmol/L Anion Gap 6.0 (3-11) BUN 16 (7-18) mg/dl Creatinine 1.58 H (0.6-1.4) mg/dl Est Cr Clr Drug Dosing 50.1 ml/min Est GFR ( Amer) 51.3 ml/min Est GFR (Non-Af Amer) 44.3 ml/min BUN/Creatinine Ratio 9.8 L (10-20) Glucose 124 H (70-99) mg/dl POC Glucose 125 H (70-99) mg/dl Calcium 8.6 (8.5-10.1) mg/dl Total Bilirubin 2.6 H (0.2-1) mg/dl Direct Bilirubin 0.8 H (0-0.2) mg/dl AST 18 (15-37) U/L ALT 25 (12-78) U/L Alkaline Phosphatase 107 (45-117) U/L Total Protein 7.0 (6.4-8.2) gm/dl Albumin 3.0 L (3.4-5.0) gm/dl 10/27/20 10/27/20 10/27/20 Range/Units 20:13 16:22 15:53 WBC (4.8-10.8) K/uL RBC (4.7-6.1) M/uL Hgb (14.0-18.0) g/dL Hct (42-52) % MCV (80-100) fL MCH (25-34) pg MCHC (32-36) g/dL RDW Std Deviation (36.4-46.3) fL RDW Coeff of Justina (11.5-14.5) % Plt Count (130-400) K/uL MPV (7.4-10.4) fL Immature Gran % (Auto) % Neut % (Auto) % Lymph % (Auto) % Lawrence % (Auto) % Eos % (Auto) % Baso % (Auto) % Neut # (Auto) (1.4-6.5) K/uL Lymph # (Auto) (1.2-3.4) K/uL Lawrence # (Auto) (0.11-0.59) K/uL Eos # (Auto) (0-0.5) K/uL Baso # (Auto) (0-0.2) K/uL Immature Gran # (Auto) (0.00-0.02) K/uL PT 10.9 (9.0-12.0) Seconds INR 1.1 (0.9-1.1) Sodium (136-145) mmol/L Potassium (3.5-5.1) mmol/L Chloride (98-107) mmol/L Carbon Dioxide (21-32) mmol/L Anion Gap (3-11) BUN (7-18) mg/dl Creatinine (0.6-1.4) mg/dl Est Cr Clr Drug Dosing ml/min Est GFR ( Amer) ml/min Est GFR (Non-Af Amer) ml/min BUN/Creatinine Ratio (10-20) Glucose (70-99) mg/dl POC Glucose 127 H 125 H (70-99) mg/dl Calcium (8.5-10.1) mg/dl Total Bilirubin (0.2-1) mg/dl Direct Bilirubin (0-0.2) mg/dl AST (15-37) U/L ALT (12-78) U/L Alkaline Phosphatase (45-117) U/L Total Protein (6.4-8.2) gm/dl Albumin (3.4-5.0) gm/dl // Range/Units 11:28 WBC (4.8-10.8) K/uL RBC (4.7-6.1) M/uL Hgb (14.0-18.0) g/dL Hct (42-52) % MCV (80-100) fL MCH (25-34) pg MCHC (32-36) g/dL RDW Std Deviation (36.4-46.3) fL RDW Coeff of Justina (11.5-14.5) % Plt Count (130-400) K/uL MPV (7.4-10.4) fL Immature Gran % (Auto) % Neut % (Auto) % Lymph % (Auto) % Lawrence % (Auto) % Eos % (Auto) % Baso % (Auto) % Neut # (Auto) (1.4-6.5) K/uL Lymph # (Auto) (1.2-3.4) K/uL Lawrence # (Auto) (0.11-0.59) K/uL Eos # (Auto) (0-0.5) K/uL Baso # (Auto) (0-0.2) K/uL Immature Gran # (Auto) (0.00-0.02) K/uL PT (9.0-12.0) Seconds INR (0.9-1.1) Sodium (136-145) mmol/L Potassium (3.5-5.1) mmol/L Chloride (98-107) mmol/L Carbon Dioxide (21-32) mmol/L Anion Gap (3-11) BUN (7-18) mg/dl Creatinine (0.6-1.4) mg/dl Est Cr Clr Drug Dosing ml/min Est GFR ( Amer) ml/min Est GFR (Non-Af Amer) ml/min BUN/Creatinine Ratio (10-20) Glucose (70-99) mg/dl POC Glucose 133 H (70-99) mg/dl Calcium (8.5-10.1) mg/dl Total Bilirubin (0.2-1) mg/dl Direct Bilirubin (0-0.2) mg/dl AST (15-37) U/L ALT (12-78) U/L Alkaline Phosphatase (45-117) U/L Total Protein (6.4-8.2) gm/dl Albumin (3.4-5.0) gm/dl Diagnostic Findings MRCP: The gallbladder is surgically absent. There is no intrahepatic biliary ductal dilatation. The common bile duct measures up to 8 mm in diameter. No intraluminal filling defects are identified to suggest choledocholithiasis. The pancreatic duct is normal in caliber. The liver is cirrhotic in morphology and heterogeneous in signal intensity. There is nodularity of the hepatic surface contour. The unenhanced spleen and adrenal glands are grossly normal. The pancreas is atrophic. There is markedly asymmetric cortical atrophy of the right kidney as compared to the left. There is persistent fullness of the left renal collecting system. Bilateral renal cysts measure up to 2.3 cm. There is no abdominal ascites. No bowel obstruction is seen. Postoperative change is suggested involving the abdominal aorta which appears dilated. This measures up to 3.1 cm in diameter. 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 There are trace pleural effusions. There is a hiatal hernia versus distention of the distal esophagus which is thick-walled and filled with debris. IMPRESSION: 1. The gallbladder is surgically absent. 2. There is no evidence of choledocholithiasis. 3. The liver is cirrhotic and heterogeneous. 4. Trace pleural effusions. 5. There is a moderate hiatal hernia versus dilated distal esophagus which is thick-walled and filled with debris. 6. Additional chronic findings as above.
[2020-10-28] MEDS: SODIUM CHLORIDE 0.9% 1000ML 1,000 ML IV SCH (12:15)
--- NOTE | 2020-10-28 16:39 | Hospitalist Progress Note ---
Date of Service October 28, 2020 Assessment & Plan (1) Upper abdominal pain: Differentials include : Distal esophagitis on CT initial read Rule out recurrent bile duct stone with history of cholangitis, choledocholithiasis Elevated bilirubin Appreciate GI input and recommendation MRCP is unremarkable 1. The gallbladder is surgically absent. 2. There is no evidence of choledocholithiasis. 3. The liver is cirrhotic and heterogeneous. 4. Trace pleural effusions. 5. There is a moderate hiatal hernia versus dilated distal esophagus which is thick-walled and filled with debris. 6. Additional chronic findings as above. Abdominal pain seems to be improving with analgesics Bilirubin seems to be elevated at 2.6 today Is a schedule for possible EUS on Monday Other medical conditions as below remain stable- History of presumptive CAD, hx TIA, hx of thoracoabdominal aortic aneurysm status post surgery HTN IgG4 related disease/vasculitis as per records, currently in remission DM 2 diet-controlled CKD, creatinine at baseline Mood disorder Past tobacco abuse DVT prophylaxis. Heparin subcu Full code Discussed with the Admission and Anticipated Discharge Date Admission Date: October 27, 2020 Subjective 10/28/2020 The patient was seen and examined in medical telemetry unit He has been complaining of minimal abdominal pain and wanted to go home His MRCP has been negative but noted to have slight increase in bilirubin today He will go for EGD/EUS on Monday Review of Systems Review of Systems: All systems reviewed and are unremarkable except as noted below Gastrointestinal: no abdominal pain, no nausea and no vomiting Physical Exam Physical Exam: Lying in bed comfortably Constitutional: well developed, well nourished, + ill appearing and + obese Eyes: PERRL, conjunctivae normal, anicteric sclerae ENMT: external ear and nose normal, oropharynx normal Neck: trachea midline, no thyromegaly Respiratory: no respiratory distress Auscultation: lungs clear to auscultation bilaterally Cardiovascular: Rate/Rhythm: regular rate and regular rhythm Heart Sounds: no murmur Extremities: no edema Gastrointestinal (Abdomen): Inspection/Auscultation: normal bowel sounds; abdomen not distended Percussion/Palpation: + abdomen tender (Minimally tender in the epigastrium) and abdomen soft Musculoskeletal: No acute arthritis in any joint Neurologic: PERRL, EOMI, accommodation nl, no face palsy, no dysarthria Psychiatric: A+Ox3, euthymic affect Lymphatic: no cervical or axillary lymphadenopathy Results & Data Results & Data ([facility]) Vital Signs (Past 12 Hours) Vital Signs Temp Pulse Resp BP Pulse Ox 10/28/20 15:12 36.9 C 87 16 130/72 92 10/28/20 14:00 97 H 10/28/20 13:59 168/83 H 10/28/20 13:26 36.8 C 104 H 18 188/98 H 98 10/28/20 07:00 37.5 C 88 20 134/77 94 Laboratory Results Short CBC 10/28/20 Range/Units 07:47 WBC 11.47 H (4.8-10.8) K/uL Hgb 15.2 (14.0-18.0) g/dL Hct 45.4 (42-52) % Plt Count 163 (130-400) K/uL BMP 10/28/20 07:47 Sodium 135 L Potassium 4.4 Chloride 106 Carbon Dioxide 23 BUN 16 Creatinine 1.58 H Glucose 124 H Calcium 8.6 Liver Function 10/28/20 Range/Units 07:47 Total Bilirubin 2.6 H (0.2-1) mg/dl Direct Bilirubin 0.8 H (0-0.2) mg/dl AST 18 (15-37) U/L ALT 25 (12-78) U/L Alkaline Phosphatase 107 (45-117) U/L Albumin 3.0 L (3.4-5.0) gm/dl Medications Administered Current Inpatient Medications Aspirin (Aspirin 81 Mg Ectab) 81 mg PO HS NEDA Stop: 11/26/20 20:59 Last Admin: 10/27/20 19:53 Dose: 81 mg Documented by: Atorvastatin Calcium (Atorvastatin 10 Mg Tab) 10 mg PO HS NEDA Stop: 11/26/20 20:59 Last Admin: 10/27/20 19:53 Dose: 10 mg Documented by: Clonazepam (Clonazepam 1 Mg Tab) 1 mg PO HS PRN PRN Reason: sleep Stop: 11/26/20 02:00 Dextrose (Dextrose 50% 50 Ml Syringe) 25 - 50 ml IV UD PRN; Protocol PRN Reason: Hypoglycemia Protocol Stop: 11/26/20 02:00 Docusate Sodium (Docusate Sodium 100 Mg Cap) 100 mg PO DAILY PRN PRN Reason: Constipation Stop: 11/26/20 02:00 Glucagon (Glucagon For Inj 1 Mg Vial) 1 mg SQ UD PRN; Protocol PRN Reason: Hypoglycemia Protocol Stop: 11/26/20 02:00 Glucose (Glucose 10 Tabs/Tube) 4 - 8 tabs PO UD PRN; Protocol PRN Reason: Hypoglycemia Protocol Stop: 11/26/20 02:00 Glucose (Glucose 40% Gel 15 Gm Tube) 15 - 30 gm PO UD PRN; Protocol PRN Reason: Hypoglycemia Protocol Stop: 11/26/20 02:00 Heparin Sodium (Porcine) (Heparin Sod 5,000 Unit/0.5 Ml Vial) 5,000 units SQ Q8 NEDA Stop: 11/26/20 05:59 Last Admin: 10/28/20 15:41 Dose: 5,000 units Documented by: Hydromorphone HCl (Hydromorphone Inj 0.5 Mg/0.5 Ml Syr) 0.5 mg IV Q3H PRN PRN Reason: Pain Stop: 11/10/20 02:00 Last Admin: 10/28/20 00:21 Dose: 0.5 mg Documented by: Promethazine HCl 12.5 mg/ (Sodium Chloride) 50.5 mls @ 202 mls/hr IV Q6H PRN PRN Reason: Nausea And Vomiting Stop: 11/26/20 02:00 Sodium Chloride (Nss 1000ml) 1,000 mls @ 60 mls/hr IV .[id number] NEDA Stop: 11/26/20 02:00 Last Admin: 10/28/20 12:15 Dose: 60 mls/hr Documented by: Insulin Aspart (Insulin Aspart 100 Units/Ml 3 Ml Pen) 0 units SC ACHS NEDA Stop: 11/26/20 16:29 Last Admin: 10/28/20 12:14 Dose: 1 units Documented by: Insulin Glargine (Insulin Glargine Solostar 100 Units/Ml 3 Ml Pen) 5 units SC HS NEDA Stop: 11/26/20 20:59 Last Admin: 10/27/20 20:39 Dose: 5 units Documented by: Metoprolol Succinate (Metoprolol Succ 25mg Ext Rel Tab) 37.5 mg PO BID NEDA Stop: 11/26/20 02:29 Last Admin: 10/28/20 08:23 Dose: 37.5 mg Documented by: Miscellaneous (Carbohydrates For Hypoglycemia ) 15 - 30 gm PO UD PRN PRN Reason: Hypoglycemia Protocol Stop: 11/26/20 02:00 Oxycodone HCl (Oxycodone Hcl Ir 5 Mg Tab (Immediate Release)) 5 - 10 mg PO QID PRN PRN Reason: Pain Stop: 11/10/20 02:00 Last Admin: 10/28/20 14:03 Dose: 5 mg Documented by: Pantoprazole Sodium (Pantoprazole 40 Mg Tab) 40 mg PO BID NEDA Stop: 11/26/20 08:59 Last Admin: 10/28/20 08:23 Dose: 40 mg Documented by:
[2020-10-28] MEDS: ATORVASTATIN 10 MG TAB PO SCH (21:18)
[2020-10-28] MEDS: ASPIRIN 81 MG ECTAB PO SCH (21:18)
[2020-10-28] MEDS: INSULIN GLARGINE SOLOSTAR 100 UNITS/ML 3 ML PEN SC SCH (21:57)
[2020-10-29] MEDS: SODIUM CHLORIDE 0.9% 1000ML 1,000 ML IV SCH ×2 (04:50→23:57)
[2020-10-29 05:36] LABS: Basophils # (auto) 0.02 K/uL (0-0.2); Basophils % (auto) 0.2 %; Eosinophils # (auto) 0.17 K/uL (0-0.5); Eosinophils % (auto) 1.7 %; Hematocrit (blood only) 46.2 % (42-52); Immature Granulocytes # (auto) 0.02 K/uL (0.00-0.02); Immature Granulocytes % (auto) 0.2 %; Lymphocytes # (auto) 1.91 K/uL (1.2-3.4); Lymphocytes % (auto) 18.7 %; Mean Corpuscular Hgb Conc 34.6 g/dL (32-36); Mean Corpuscular Volume 86.5 fL (80-100); Mean Platelet Volume 10.6 fL (7.4-10.4); Monocytes # (auto) 1.41 K/uL (0.11-0.59); Monocytes % (auto) 13.8 %; Neutrophils % (auto) 65.4 %; Platelet Count 202 K/uL (130-400); RDW Coefficient of Variation 14.4 % (11.5-14.5); RDW Standard Deviation 45.5 fL (36.4-46.3); Red Blood Count 5.34 M/uL (4.7-6.1); White Blood Count 10.23 K/uL (4.8-10.8)
[2020-10-29 06:00] LABS: BUN Creatinine Ratio 10.2 (10-20); Bilirubin Direct 0.8 mg/dl (0-0.2); Calcium 8.5 mg/dl (8.5-10.1); Creatinine Clr Calc Pharmacy 52.4 ml/min; Est GFR (African American) 54.2 ml/min; Est GFR (Non-African American) 46.8 ml/min
[2020-10-29 06:03] LABS: Albumin Globulin Ratio 0.7 (0.9-2); Bilirubin,Total 2.3 mg/dl (0.2-1); Globulin 4.2 gm/dl (2.5-4.0); Total Protein 7.2 gm/dl (6.4-8.2)
[2020-10-29] MEDS: HEPARIN SOD 5,000 UNIT/0.5 ML VIAL SQ SCH ×3 (06:03→21:49)
[2020-10-29] MEDS: METOPROLOL SUCC 25MG EXT REL TAB PO SCH ×2 (08:36→21:48)
[2020-10-29] MEDS: PANTOprazole 40 MG TAB PO SCH ×2 (08:36→21:49)
[2020-10-29] MEDS: INSULIN ASPART 100 UNITS/ML 3 ML PEN SC SCH ×5 (08:38→23:59)
[2020-10-29] MEDS: oxyCODONE HCL IR 5 MG TAB (IMMEDIATE RELEASE) PO PRN (11:51)
--- NOTE | 2020-10-29 11:54 | Communication Note ---
Date of Service: October 29, 2020 Chart reviewed; pt scheduled for EGD/EUS tomorrow for abd pain, history of choledocholithiasis and large traction diverticulum with h/o inflammatory TAA. Today he has no leukocytosis or anemia; ALP bumped to 142; appears to have indirect hyperbilirubinemia with tbili 2.3, direct bili 0.8; ? cirrhosis on MRCP. Overnight had a slight temp; today is afebrile. - Continue clear liquid diet - NPO after midnight - Analgesia PRN - Consider ABX if rising WBC, fevers, hypotension - Endoscopy as scheduled tomorrow
--- NOTE | 2020-10-29 17:33 | Hospitalist Progress Note ---
Date of Service October 29, 2020 Assessment & Plan (1) Upper abdominal pain: Differentials include : Distal esophagitis on CT initial read Rule out recurrent bile duct stone with history of cholangitis, choledocholithiasis Elevated bilirubin Appreciate GI input and recommendation MRCP is unremarkable 1. The gallbladder is surgically absent. 2. There is no evidence of choledocholithiasis. 3. The liver is cirrhotic and heterogeneous. 4. Trace pleural effusions. 5. There is a moderate hiatal hernia versus dilated distal esophagus which is thick-walled and filled with debris. 6. Additional chronic findings as above. Abdominal pain seems to be improving with analgesics Bilirubin seems to be elevated at 2.6 today Complains of more abdominal pain with nausea but no vomiting Bilirubin remains elevated at 2.3 and alkaline phos elevated as 140s Scheduled for EUS tomorrow Has been on clears and will put him on n.p.o. after midnight Other medical conditions as below remain stable- History of presumptive CAD, hx TIA, hx of thoracoabdominal aortic aneurysm status post surgery HTN IgG4 related disease/vasculitis as per records, currently in remission DM 2 diet-controlled CKD, creatinine at baseline Mood disorder Past tobacco abuse DVT prophylaxis. Heparin subcu Full code Discussed with the Admission and Anticipated Discharge Date Admission Date: October 27, 2020 Subjective 10/28/2020 The patient was seen and examined in medical telemetry unit He has been complaining of minimal abdominal pain and wanted to go home His MRCP has been negative but noted to have slight increase in bilirubin today He will go for EGD/EUS on Monday10/29/2020 The patient was seen and examined in medical floor He complains to have abdominal pain with with some nausea but no vomiting No fever and/or chills Review of Systems Review of Systems: All systems reviewed and are unremarkable except as noted below Gastrointestinal: + abdominal pain and + nausea; no vomiting Physical Exam Physical Exam: Lying in bed with some discomfort in the abdomen Constitutional: well developed, well nourished, + ill appearing and + obese Eyes: PERRL, conjunctivae normal, anicteric sclerae ENMT: external ear and nose normal, oropharynx normal Neck: trachea midline, no thyromegaly Respiratory: no respiratory distress Auscultation: lungs clear to auscultation bilaterally Cardiovascular: Rate/Rhythm: regular rate and regular rhythm Heart Sounds: no murmur Extremities: no edema Gastrointestinal (Abdomen): Inspection/Auscultation: + abdomen distended (Mildly distended) and normal bowel sounds Percussion/Palpation: + abdomen tender (Minimally tender in the epigastrium) and abdomen soft Neurologic: PERRL, EOMI, accommodation nl, no face palsy, no dysarthria Psychiatric: A+Ox3, euthymic affect Lymphatic: no cervical or axillary lymphadenopathy Results & Data Results & Data ([facility]) Vital Signs (Past 12 Hours) Vital Signs Temp Pulse Resp BP Pulse Ox 10/29/20 15:48 36.6 C 80 18 168/73 H 96 10/29/20 07:16 37.0 C 76 18 161/78 H 96 Laboratory Results Short CBC 10/29/20 Range/Units 04:53 WBC 10.23 (4.8-10.8) K/uL Hgb 16.0 (14.0-18.0) g/dL Hct 46.2 (42-52) % Plt Count 202 (130-400) K/uL BMP 10/29/20 04:53 Sodium 136 Potassium 4.0 Chloride 106 Carbon Dioxide 23 BUN 15 Creatinine 1.51 H Glucose 126 H Calcium 8.5 Liver Function 10/29/20 Range/Units 04:53 Total Bilirubin 2.3 H (0.2-1) mg/dl Direct Bilirubin 0.8 H (0-0.2) mg/dl AST 24 (15-37) U/L ALT 33 (12-78) U/L Alkaline Phosphatase 142 H (45-117) U/L Albumin 3.0 L (3.4-5.0) gm/dl Medications Administered Current Inpatient Medications Aspirin (Aspirin 81 Mg Ectab) 81 mg PO HS NEDA Stop: 11/26/20 20:59 Last Admin: 10/28/20 21:18 Dose: 81 mg Documented by: Atorvastatin Calcium (Atorvastatin 10 Mg Tab) 10 mg PO HS NEDA Stop: 11/26/20 20:59 Last Admin: 10/28/20 21:18 Dose: 10 mg Documented by: Clonazepam (Clonazepam 1 Mg Tab) 1 mg PO HS PRN PRN Reason: sleep Stop: 11/26/20 02:00 Dextrose (Dextrose 50% 50 Ml Syringe) 25 - 50 ml IV UD PRN; Protocol PRN Reason: Hypoglycemia Protocol Stop: 11/26/20 02:00 Docusate Sodium (Docusate Sodium 100 Mg Cap) 100 mg PO DAILY PRN PRN Reason: Constipation Stop: 11/26/20 02:00 Glucagon (Glucagon For Inj 1 Mg Vial) 1 mg SQ UD PRN; Protocol PRN Reason: Hypoglycemia Protocol Stop: 11/26/20 02:00 Glucose (Glucose 10 Tabs/Tube) 4 - 8 tabs PO UD PRN; Protocol PRN Reason: Hypoglycemia Protocol Stop: 11/26/20 02:00 Glucose (Glucose 40% Gel 15 Gm Tube) 15 - 30 gm PO UD PRN; Protocol PRN Reason: Hypoglycemia Protocol Stop: 11/26/20 02:00 Heparin Sodium (Porcine) (Heparin Sod 5,000 Unit/0.5 Ml Vial) 5,000 units SQ Q8 NEDA Stop: 11/26/20 05:59 Last Admin: 10/29/20 13:04 Dose: Not Given Documented by: Hydromorphone HCl (Hydromorphone Inj 0.5 Mg/0.5 Ml Syr) 0.5 mg IV Q3H PRN PRN Reason: Pain Stop: 11/10/20 02:00 Last Admin: 10/28/20 00:21 Dose: 0.5 mg Documented by: Promethazine HCl 12.5 mg/ (Sodium Chloride) 50.5 mls @ 202 mls/hr IV Q6H PRN PRN Reason: Nausea And Vomiting Stop: 11/26/20 02:00 Sodium Chloride (Nss 1000ml) 1,000 mls @ 60 mls/hr IV .[id number] [facility] Stop: 11/26/20 02:00 Last Admin: 10/29/20 04:50 Dose: 60 mls/hr Documented by: Insulin Aspart (Insulin Aspart 100 Units/Ml 3 Ml Pen) 0 units SC ACHS [facility] Stop: 11/26/20 16:29 Last Admin: 10/29/20 17:24 Dose: Not Given Documented by: Insulin Glargine (Insulin Glargine Solostar 100 Units/Ml 3 Ml Pen) 5 units SC HS [facility] Stop: 11/26/20 20:59 Last Admin: 10/28/20 21:57 Dose: 5 units Documented by: Metoprolol Succinate (Metoprolol Succ 25mg Ext Rel Tab) 37.5 mg PO BID [facility] Stop: 11/26/20 02:29 Last Admin: 10/29/20 08:36 Dose: 37.5 mg Documented by: Miscellaneous (Carbohydrates For Hypoglycemia ) 15 - 30 gm PO UD PRN PRN Reason: Hypoglycemia Protocol Stop: 11/26/20 02:00 Oxycodone HCl (Oxycodone Hcl Ir 5 Mg Tab (Immediate Release)) 5 - 10 mg PO QID PRN PRN Reason: Pain Stop: 11/10/20 02:00 Last Admin: 10/29/20 11:51 Dose: 5 mg Documented by: Pantoprazole Sodium (Pantoprazole 40 Mg Tab) 40 mg PO BID [facility] Stop: 11/26/20 08:59 Last Admin: 10/29/20 08:36 Dose: 40 mg Documented by:
[2020-10-29] MEDS: ASPIRIN 81 MG ECTAB PO SCH (21:49)
[2020-10-29] MEDS: ATORVASTATIN 10 MG TAB PO SCH (21:49)
[2020-10-29] MEDS: INSULIN GLARGINE SOLOSTAR 100 UNITS/ML 3 ML PEN SC SCH (21:50)
[2020-10-29] MEDS ORDERED: Nursing to Pharmacy Communication SCH (23:15)
[2020-10-30] MEDS: oxyCODONE HCL IR 5 MG TAB (IMMEDIATE RELEASE) PO PRN (05:09)
[2020-10-30 05:19] LABS: Basophils # (auto) 0.03 K/uL (0-0.2); Basophils % (auto) 0.4 %; Eosinophils # (auto) 0.25 K/uL (0-0.5); Eosinophils % (auto) 3.6 %; Hematocrit (blood only) 43.5 % (42-52); Hemoglobin 14.8 g/dL (14.0-18.0); Immature Granulocytes # (auto) 0.01 K/uL (0.00-0.02); Immature Granulocytes % (auto) 0.1 %; Lymphocytes # (auto) 1.58 K/uL (1.2-3.4); Mean Corpuscular Volume 85.3 fL (80-100); Mean Platelet Volume 10.4 fL (7.4-10.4); Monocytes % (auto) 14.6 %; Neutrophils % (auto) 58.3 %; Platelet Count 210 K/uL (130-400); RDW Coefficient of Variation 14.3 % (11.5-14.5); RDW Standard Deviation 44.6 fL (36.4-46.3); White Blood Count 6.87 K/uL (4.8-10.8)
[2020-10-30 05:42] LABS: Albumin Level 2.8 gm/dl (3.4-5.0); BUN Creatinine Ratio 10.8 (10-20); Bilirubin Direct 0.7 mg/dl (0-0.2); Calcium 8.4 mg/dl (8.5-10.1); Creatinine Clr Calc Pharmacy 55.7 ml/min; Est GFR (African American) 58.4 ml/min; Est GFR (Non-African American) 50.4 ml/min; Potassium 3.9 mmol/L (3.5-5.1)
[2020-10-30 05:47] LABS: Albumin Globulin Ratio 0.7 (0.9-2); Bilirubin,Total 1.6 mg/dl (0.2-1); Globulin 4.2 gm/dl (2.5-4.0)
[2020-10-30] MEDS: INSULIN ASPART 100 UNITS/ML 3 ML PEN SC SCH ×2 (06:37→13:57)
[2020-10-30] MEDS: HEPARIN SOD 5,000 UNIT/0.5 ML VIAL SQ SCH ×2 (06:37→13:41)
[2020-10-30] MEDS: PANTOprazole 40 MG TAB PO SCH (08:37)
[2020-10-30] MEDS: METOPROLOL SUCC 25MG EXT REL TAB PO SCH (08:38)
--- NOTE | 2020-10-30 09:18 | Anesthesiology Consultation ---
Date of Service October 30, 2020 Assessment & Plan (1) Encounter for pre-operative examination: Chart Review Chart Review: Acceptable Risk for Surgery History Surgery Operation Date: 10/30/20 12:40 Proposed Procedures p Endoscopic Ultrasonography Brea Winston DO Height/Weight Height: 5 ft 10 in Weight: 88.3 kg Allergies Allergy/AdvReac Type Severity Reaction Status Date / Time tramadol AdvReac Unknown HIVES Verified 10/26/20 21:58 clotrimazole AdvReac Rash Verified 10/26/20 21:58 Medications Home Medications Medication Instructions Recorded Confirmed Last Taken hydroxyzine HCl 10 mg tablet 10 mg PO ONCE PRN tab 07/17/19 10/26/20 02/27/20 21:00 docusate sodium 100 mg PO DAILY PRN 01/19/20 10/26/20 Unknown omeprazole 20 mg PO QAM 01/19/20 10/26/20 10/26/20 09:00 oxycodone 5 mg PO Q8 PRN 01/19/20 10/26/20 01/19/20 10:00 atorvastatin 10 mg PO HS 02/19/20 10/26/20 10/25/20 21:00 aspirin [Aspir-81] 81 mg PO HS 05/02/20 10/26/20 10/25/20 21:00 ibuprofen 400 mg PO Q6H PRN 05/02/20 10/26/20 10/26/20 09:00 ergocalciferol (vitamin D2) 1,250 50,000 unit PO MONTHLY #12 cap 06/18/20 10/26/20 10/05/20 mcg (50,000 unit) capsule clonazepam 1 mg tablet 1 mg PO HS PRN #30 tab 07/09/20 10/26/20 Unknown metoprolol succinate 25 mg 37.5 mg PO BID #270 tab 10/02/20 10/26/20 10/26/20 09:00 tablet,extended release 24 hr Active Medications Generic Name Dose Route Start Last Admin Trade Name Freq PRN Reason Stop Dose Admin Aspirin 81 mg 10/27/20 21:00 10/29/20 21:49 Aspirin 81 Mg Ectab PO 11/26/20 20:59 81 mg HS NEDA Administration Atorvastatin Calcium 10 mg 10/27/20 21:00 10/29/20 21:49 Atorvastatin 10 Mg Tab PO 11/26/20 20:59 10 mg HS NEDA Administration Heparin Sodium (Porcine) 5,000 units 10/27/20 06:00 10/30/20 06:37 Heparin Sod 5,000 Unit/0.5 Ml Vial SQ 11/26/20 05:59 5,000 units Q8 NEDA Administration Hydromorphone HCl 0.5 mg 10/27/20 02:01 10/28/20 00:21 Hydromorphone Inj 0.5 Mg/0.5 Ml Syr IV 11/10/20 02:00 0.5 mg Q3H PRN Administration Pain Sodium Chloride 1,000 mls @ 60 mls/hr 10/27/20 02:01 10/29/20 23:57 Nss 1000ml IV 11/26/20 02:00 60 mls/hr .[id number] NEDA Administration Insulin Aspart 0 units 10/30/20 00:00 10/30/20 06:37 Insulin Aspart 100 Units/Ml 3 Ml Pen SC 11/29/20 00:00 Not Given Q6 NEDA Insulin Glargine 5 units 10/27/20 21:00 10/29/20 21:50 Insulin Glargine Solostar 100 Units/Ml 3 Ml Pen SC 11/26/20 20:59 5 units HS NEDA Administration Metoprolol Succinate 37.5 mg 10/27/20 02:30 10/30/20 08:38 Metoprolol Succ 25mg Ext Rel Tab PO 11/26/20 02:29 37.5 mg BID NEDA Administration Oxycodone HCl 5 - 10 mg 10/27/20 02:01 10/30/20 05:09 Oxycodone Hcl Ir 5 Mg Tab (Immediate Release) PO 11/10/20 02:00 5 mg QID PRN Administration Pain Pantoprazole Sodium 40 mg 10/27/20 09:00 10/30/20 08:37 Pantoprazole 40 Mg Tab PO 11/26/20 08:59 Not Given BID NEDA NPO Date Last Intake of Fluids: 10/29/20 Time Last Intake of Fluids: 23:59 Date Last Intake of Solids: 10/29/20 Time Last Intake of Solids: 18:00 Past Medical History Medical History AAA (abdominal aortic aneurysm) "stage 4 rare vasculitis s/p AAA repair performed by Dr. Martinez Jerome 02/03/16 " Basal cell carcinoma (BCC) BPH (benign prostatic hyperplasia) CAD (coronary artery disease) Chronic kidney disease, stage III (moderate) Dyslipidemia Esophageal diverticulum GERD (gastroesophageal reflux disease) History of empyema of pleura History of nephrolithiasis History of renal dialysis required dialysis for short period following AAA repair 2015 History of stroke 5 years ago; no residual Hypertension IgG4 related disease follows w/ [facility] Ischemia of kidney during AAA repair 2015; currently w/ one functioning kidney Obstructive sleep apnea Intolerant to CPAP Restless leg syndrome Silent myocardial infarction h/o Spinal stenosis T2DM (type 2 diabetes mellitus) Diet controlled Vasculitis involving renal artery Vitamin D deficiency Past Family History Family History Father Diabetes Other Colorectal cancer No family history of adverse response to anesthesia Obstructive sleep apnea Past Surgical History Surgical History History of AAA (abdominal aortic aneurysm) repair s/p TEVAR 2016 for 8 cm thoracic aneurysm after prior open repair of 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 History of cataract surgery History of cholecystectomy 12/2018 History of colonoscopy History of colostomy History of colostomy reversal ileostomy reversal 10/2018 History of ERCP History of esophagogastroduodenoscopy (EGD) History of lung surgery Secondary to empyema History of partial colectomy "L hemicolectomy with colostomy 2* mesenteric ischemia s/p vascular surgery 02/03/16" History of thoracic aortic aneurysm repair stent S/P Mohs surgery for basal cell carcinoma x 2 Social History Smoking Status: Former smoker tobacco type: cigarettes Smoking cigarettes per day: 1 PPD Do You Dip or Chew Tobacco: No Smoking End Date: 5 years ago Hx Alcohol Use: Yes Alcohol type: beer alcohol intake frequency: a few times a month Hx Substance Use: No substance use type: does not use Physical Exam Vital Signs Last Vital Signs Temp 36.4 C L 10/30/20 07:27 Pulse 66 10/30/20 07:27 Resp 16 10/30/20 07:27 BP 129/70 10/30/20 07:27 Pulse Ox 94 10/30/20 07:27 Testing Laboratory Results 10/30/20 05:06 10/30/20 05:06 PT 10.9 Seconds (9.0-12.0) 10/27/20 15:53 INR 1.1 (0.9-1.1) 10/27/20 15:53 Urine Color Dark Yellow 10/26/20 22:10 Urine Appearance Turbid (Clear) A 10/26/20 22:10 Urine pH 5.0 (4.5-7.5) 10/26/20 22:10 Ur Specific [place] 1.026 (1.000-1.030) 10/26/20 22:10 Urine Protein 1+ (Negative) H 10/26/20 22:10 Urine Glucose (UA) 1+ (Negative) H 10/26/20 22:10 Urine Ketones Trace (Negative) H 10/26/20 22:10 Urine Nitrite Negative (Negative) 10/26/20 22:10 Ur Leukocyte Esterase Negative (Negative) 10/26/20 22:10 Urine WBC (Auto) 1-5 /hpf (0-5) 10/26/20 22:10 Urine RBC (Auto) 0-4 /hpf (0-4) 10/26/20 22:10 U Hyaline Cast (Auto) 0 /lpf (0-5) 10/26/20 22:10 U Epithel Cells (Auto) 5-10 /lpf (0-5) H 10/26/20 22:10 Urine Bacteria (Auto) Negative (Negative) 10/26/20 22:10 10/26/20 22:00 Aerobic Blood Culture - Preliminary Blood No growth in Aerobic bottle after 48 hours. Anaerobic Blood Culture - Final 10/26/20 22:00 Aerobic Blood Culture - Preliminary Blood No growth in Aerobic bottle after 48 hours. Anaerobic Blood Culture - Preliminary No growth in Anaerobic bottle after 48 hours. 10/30/20 10/29/20 06:02 23:49 POC Glucose 136 H 141 H covid negative 10/26 Electrocardiogram Date: 10/26/20 Findings: + NSR @ (71), + poor R wave progression and + [place] (old inferior) Chest X-Ray Date: 10/26/20 Findings: + cardiomegaly c/w emphysema
--- NOTE | 2020-10-30 09:25 | Gastroenterology Progress Note ---
Date of Service October 30, 2020 Assessment & Plan (1) Upper abdominal pain: 69-year-old male with complicated PMHx history including cholangitis, choledocholithiasis S/P stone extraction in 2019 and CBD stent placement later removed, admitted with upper abd discomfort and elevated bilirubin. MRCP with no obvious choledocholithiasis, but did suggest possible cirrhosis. He has a known on large traction diverticulum and has been evaluated by [facility] for this; opted to defer surgery at that time. On exam abdomen soft, nontender at present. - Plan for EGD/EUS today to evaluate his upper abd pain - NPO - Continue analgesia as needed - Antiemetics as needed - Trend LFTs, WBC - Supportive care with IVF - If fevers or elevated WBC, hypotension consider ABX - Daily PPI Thank you for allowing us to participate in the care of this patient. Please call with any acute changes, questions or concerns. Please see addendum below with additional recommendation from my supervising physician. (2) Total bilirubin, elevated: Admission and Anticipated Discharge Date Admission Date: October 27, 2020 Supervising Physician Co-Signing Physician Notes I saw and evaluated the patient. He presents with a history of intermittent epigastric discomfort. He does have a history of choledocholithiasis and underwent ERCP last year. He notes that his pain does seem similar however his imaging and labs are negative to date. We are planning to do upper endoscopy with endoscopic ultrasound and if positive for choledocholithiasis ERCP. We have discussed the risks and benefits to include bleeding, infection, perforation, pancreatitis and need for follow-up evaluation. Subjective Patient seen and examined, chart reviewed. No acute events overnight. Upper abd discomfort continues to be intermittent. Labs reviewed, T bili 1.6, T bili 0.7, alk phos 174, AST 39, ALT 44, no leukocytosis or anemia. He has been tolerating a clear liquid diet Review of Systems Review of Systems: All systems reviewed & are unremarkable except as noted in HPI & below Physical Exam Constitutional: WD/WN, vitals as above Eyes: + anicteric sclerae Respiratory: normal respiratory effort; no respiratory distress Cardiovascular: Rate/Rhythm: regular rate and regular rhythm Gastrointestinal (Abdomen): Inspection/Auscultation: abdomen normal to inspection; abdomen not distended Percussion/Palpation: abdomen soft; abdomen nontender Skin: no rashes, warm and dry no jaundice Psychiatric: A+Ox3, euthymic affect Results & Data ([facility]) Vital Signs (Past 12 Hours) Vital Signs Temp Pulse Resp BP Pulse Ox 10/30/20 07:27 36.4 C L 66 16 129/70 94 Laboratory Results 10/30/20 10/30/20 10/30/20 Range/Units 06:02 05:06 05:06 WBC 6.87 (4.8-10.8) K/uL RBC 5.10 (4.7-6.1) M/uL Hgb 14.8 (14.0-18.0) g/dL Hct 43.5 (42-52) % MCV 85.3 (80-100) fL MCH 29.0 (25-34) pg MCHC 34.0 (32-36) g/dL RDW Std Deviation 44.6 (36.4-46.3) fL RDW Coeff of Justina 14.3 (11.5-14.5) % Plt Count 210 (130-400) K/uL MPV 10.4 (7.4-10.4) fL Immature Gran % (Auto) 0.1 % Neut % (Auto) 58.3 % Lymph % (Auto) 23.0 % [place] % (Auto) 14.6 % Eos % (Auto) 3.6 % Baso % (Auto) 0.4 % Neut # (Auto) 4.00 (1.4-6.5) K/uL Lymph # (Auto) 1.58 (1.2-3.4) K/uL [place] # (Auto) 1.00 H (0.11-0.59) K/uL Eos # (Auto) 0.25 (0-0.5) K/uL Baso # (Auto) 0.03 (0-0.2) K/uL Immature Gran # (Auto) 0.01 (0.00-0.02) K/uL Sodium 138 (136-145) mmol/L Potassium 3.9 (3.5-5.1) mmol/L Chloride 110 H (98-107) mmol/L Carbon Dioxide 22 (21-32) mmol/L Anion Gap 6.0 (3-11) BUN 15 (7-18) mg/dl Creatinine 1.42 H (0.6-1.4) mg/dl Est Cr Clr Drug Dosing 55.7 ml/min Est GFR ( Amer) 58.4 ml/min Est GFR (Non-Af Amer) 50.4 ml/min BUN/Creatinine Ratio 10.8 (10-20) Glucose 139 H (70-99) mg/dl POC Glucose 136 H (70-99) mg/dl Calcium 8.4 L (8.5-10.1) mg/dl Total Bilirubin 1.6 H (0.2-1) mg/dl Direct Bilirubin 0.7 H (0-0.2) mg/dl AST 39 H (15-37) U/L ALT 44 (12-78) U/L Alkaline Phosphatase 174 H (45-117) U/L Total Protein 7.0 (6.4-8.2) gm/dl Albumin 2.8 L (3.4-5.0) gm/dl Globulin 4.2 H (2.5-4.0) gm/dl Albumin/Globulin Ratio 0.7 L (0.9-2) 10/29/20 10/29/20 10/29/20 Range/Units 23:49 20:45 17:04 WBC (4.8-10.8) K/uL RBC (4.7-6.1) M/uL Hgb (14.0-18.0) g/dL Hct (42-52) % MCV (80-100) fL MCH (25-34) pg MCHC (32-36) g/dL RDW Std Deviation (36.4-46.3) fL RDW Coeff of Justina (11.5-14.5) % Plt Count (130-400) K/uL MPV (7.4-10.4) fL Immature Gran % (Auto) % Neut % (Auto) % Lymph % (Auto) % [place] % (Auto) % Eos % (Auto) % Baso % (Auto) % Neut # (Auto) (1.4-6.5) K/uL Lymph # (Auto) (1.2-3.4) K/uL [place] # (Auto) (0.11-0.59) K/uL Eos # (Auto) (0-0.5) K/uL Baso # (Auto) (0-0.2) K/uL Immature Gran # (Auto) (0.00-0.02) K/uL Sodium (136-145) mmol/L Potassium (3.5-5.1) mmol/L Chloride (98-107) mmol/L Carbon Dioxide (21-32) mmol/L Anion Gap (3-11) BUN (7-18) mg/dl Creatinine (0.6-1.4) mg/dl Est Cr Clr Drug Dosing ml/min Est GFR ( Amer) ml/min Est GFR (Non-Af Amer) ml/min BUN/Creatinine Ratio (10-20) Glucose (70-99) mg/dl POC Glucose 141 H 129 H 140 H (70-99) mg/dl Calcium (8.5-10.1) mg/dl Total Bilirubin (0.2-1) mg/dl Direct Bilirubin (0-0.2) mg/dl AST (15-37) U/L ALT (12-78) U/L Alkaline Phosphatase (45-117) U/L Total Protein (6.4-8.2) gm/dl Albumin (3.4-5.0) gm/dl Globulin (2.5-4.0) gm/dl Albumin/Globulin Ratio (0.9-2) 05/27/21 Range/Units 12:13 WBC (4.8-10.8) K/uL RBC (4.7-6.1) M/uL Hgb (14.0-18.0) g/dL Hct (42-52) % MCV (80-100) fL MCH (25-34) pg MCHC (32-36) g/dL RDW Std Deviation (36.4-46.3) fL RDW Coeff of Justina (11.5-14.5) % Plt Count (130-400) K/uL MPV (7.4-10.4) fL Immature Gran % (Auto) % Neut % (Auto) % Lymph % (Auto) % [place] % (Auto) % Eos % (Auto) % Baso % (Auto) % Neut # (Auto) (1.4-6.5) K/uL Lymph # (Auto) (1.2-3.4) K/uL [place] # (Auto) (0.11-0.59) K/uL Eos # (Auto) (0-0.5) K/uL Baso # (Auto) (0-0.2) K/uL Immature Gran # (Auto) (0.00-0.02) K/uL Sodium (136-145) mmol/L Potassium (3.5-5.1) mmol/L Chloride (98-107) mmol/L Carbon Dioxide (21-32) mmol/L Anion Gap (3-11) BUN (7-18) mg/dl Creatinine (0.6-1.4) mg/dl Est Cr Clr Drug Dosing ml/min Est GFR ( Amer) ml/min Est GFR (Non-Af Amer) ml/min BUN/Creatinine Ratio (10-20) Glucose (70-99) mg/dl POC Glucose 147 H (70-99) mg/dl Calcium (8.5-10.1) mg/dl Total Bilirubin (0.2-1) mg/dl Direct Bilirubin (0-0.2) mg/dl AST (15-37) U/L ALT (12-78) U/L Alkaline Phosphatase (45-117) U/L Total Protein (6.4-8.2) gm/dl Albumin (3.4-5.0) gm/dl Globulin (2.5-4.0) gm/dl Albumin/Globulin Ratio (0.9-2)
--- NOTE | 2020-10-30 11:16 | Hospitalist Progress Note ---
Date of Service October 30, 2020 Assessment & Plan (1) Upper abdominal pain: Differentials include : Distal esophagitis on CT initial read Rule out recurrent bile duct stone with history of cholangitis, choledocholithiasis Elevated bilirubin Appreciate GI input and recommendation MRCP is unremarkable 1. The gallbladder is surgically absent. 2. There is no evidence of choledocholithiasis. 3. The liver is cirrhotic and heterogeneous. 4. Trace pleural effusions. 5. There is a moderate hiatal hernia versus dilated distal esophagus which is thick-walled and filled with debris. 6. Additional chronic findings as above. Abdominal pain seems to be improving with analgesics Bilirubin seems to be elevated at 2.6 today Complains of more abdominal pain with nausea but no vomiting Bilirubin is slightly improved but alkaline phos is a little worse We will have EGD/EUS today Likely discharge following the procedure if remains stable Other medical conditions as below remain stable- History of presumptive CAD, hx TIA, hx of thoracoabdominal aortic aneurysm status post surgery HTN IgG4 related disease/vasculitis as per records, currently in remission DM 2 diet-controlled CKD, creatinine at baseline Mood disorder Past tobacco abuse DVT prophylaxis. Heparin subcu Full code Discussed with the Admission and Anticipated Discharge Date Admission Date: October 27, 2020 Subjective 10/28/2020 The patient was seen and examined in medical telemetry unit He has been complaining of minimal abdominal pain and wanted to go home His MRCP has been negative but noted to have slight increase in bilirubin today He will go for EGD/EUS on Monday10/29/2020 The patient was seen and examined in medical floor He complains to have abdominal pain with with some nausea but no vomiting No fever and/or chills 10/30/2020 The patient was seen and examined in medical floor Still complains to have some abdominal discomfort and pain Denies any fever and/or chills, denies any nausea and/or vomiting He will be going for EGD/EUS today Review of Systems Review of Systems: All systems reviewed and are unremarkable except as noted below Gastrointestinal: + abdominal pain and + nausea; no vomiting Physical Exam Physical Exam: Lying in bed with some discomfort in the abdomen Constitutional: well developed, well nourished, + ill appearing and + obese Eyes: PERRL, conjunctivae normal, anicteric sclerae ENMT: external ear and nose normal, oropharynx normal Neck: trachea midline, no thyromegaly Respiratory: no respiratory distress Auscultation: lungs clear to auscultation bilaterally Cardiovascular: Rate/Rhythm: regular rate and regular rhythm Heart Sounds: no murmur Extremities: no edema Gastrointestinal (Abdomen): Inspection/Auscultation: + abdomen distended (Mildly distended) and normal bowel sounds Percussion/Palpation: + abdomen tender (Minimally tender in the epigastrium) and abdomen soft Neurologic: PERRL, EOMI, accommodation nl, no face palsy, no dysarthria Psychiatric: A+Ox3, euthymic affect Lymphatic: no cervical or axillary lymphadenopathy Results & Data Results & Data ([facility]) Vital Signs (Past 12 Hours) Vital Signs Temp Pulse Resp BP Pulse Ox 10/30/20 07:27 36.4 C L 66 16 129/70 94 Laboratory Results Short CBC 10/30/20 Range/Units 05:06 WBC 6.87 (4.8-10.8) K/uL Hgb 14.8 (14.0-18.0) g/dL Hct 43.5 (42-52) % Plt Count 210 (130-400) K/uL BMP 10/30/20 05:06 Sodium 138 Potassium 3.9 Chloride 110 H Carbon Dioxide 22 BUN 15 Creatinine 1.42 H Glucose 139 H Calcium 8.4 L Liver Function 10/30/20 Range/Units 05:06 Total Bilirubin 1.6 H (0.2-1) mg/dl Direct Bilirubin 0.7 H (0-0.2) mg/dl AST 39 H (15-37) U/L ALT 44 (12-78) U/L Alkaline Phosphatase 174 H (45-117) U/L Albumin 2.8 L (3.4-5.0) gm/dl Medications Administered Current Inpatient Medications Aspirin (Aspirin 81 Mg Ectab) 81 mg PO HS NEDA Stop: 11/26/20 20:59 Last Admin: 10/29/20 21:49 Dose: 81 mg Documented by: Atorvastatin Calcium (Atorvastatin 10 Mg Tab) 10 mg PO HS NEDA Stop: 11/26/20 20:59 Last Admin: 10/29/20 21:49 Dose: 10 mg Documented by: Clonazepam (Clonazepam 1 Mg Tab) 1 mg PO HS PRN PRN Reason: sleep Stop: 11/26/20 02:00 Dextrose (Dextrose 50% 50 Ml Syringe) 25 - 50 ml IV UD PRN; Protocol PRN Reason: Hypoglycemia Protocol Stop: 11/26/20 02:00 Docusate Sodium (Docusate Sodium 100 Mg Cap) 100 mg PO DAILY PRN PRN Reason: Constipation Stop: 11/26/20 02:00 Glucagon (Glucagon For Inj 1 Mg Vial) 1 mg SQ UD PRN; Protocol PRN Reason: Hypoglycemia Protocol Stop: 11/26/20 02:00 Glucose (Glucose 10 Tabs/Tube) 4 - 8 tabs PO UD PRN; Protocol PRN Reason: Hypoglycemia Protocol Stop: 11/26/20 02:00 Glucose (Glucose 40% Gel 15 Gm Tube) 15 - 30 gm PO UD PRN; Protocol PRN Reason: Hypoglycemia Protocol Stop: 11/26/20 02:00 Heparin Sodium (Porcine) (Heparin Sod 5,000 Unit/0.5 Ml Vial) 5,000 units SQ Q8 NEDA Stop: 11/26/20 05:59 Last Admin: 10/30/20 06:37 Dose: 5,000 units Documented by: Hydromorphone HCl (Hydromorphone Inj 0.5 Mg/0.5 Ml Syr) 0.5 mg IV Q3H PRN PRN Reason: Pain Stop: 11/10/20 02:00 Last Admin: 10/28/20 00:21 Dose: 0.5 mg Documented by: Promethazine HCl 12.5 mg/ (Sodium Chloride) 50.5 mls @ 202 mls/hr IV Q6H PRN PRN Reason: Nausea And Vomiting Stop: 11/26/20 02:00 Sodium Chloride (Nss 1000ml) 1,000 mls @ 60 mls/hr IV .[id number] [facility] Stop: 11/26/20 02:00 Last Admin: 10/29/20 23:57 Dose: 60 mls/hr Documented by: Insulin Aspart (Insulin Aspart 100 Units/Ml 3 Ml Pen) 0 units SC Q6 NEDA Stop: 11/29/20 00:00 Last Admin: 10/30/20 06:37 Dose: Not Given Documented by: Insulin Glargine (Insulin Glargine Solostar 100 Units/Ml 3 Ml Pen) 5 units SC HS [facility] Stop: 11/26/20 20:59 Last Admin: 10/29/20 21:50 Dose: 5 units Documented by: Metoprolol Succinate (Metoprolol Succ 25mg Ext Rel Tab) 37.5 mg PO BID NEDA Stop: 11/26/20 02:29 Last Admin: 10/30/20 08:38 Dose: 37.5 mg Documented by: Miscellaneous (Carbohydrates For Hypoglycemia ) 15 - 30 gm PO UD PRN PRN Reason: Hypoglycemia Protocol Stop: 11/26/20 02:00 Oxycodone HCl (Oxycodone Hcl Ir 5 Mg Tab (Immediate Release)) 5 - 10 mg PO QID PRN PRN Reason: Pain Stop: 11/10/20 02:00 Last Admin: 10/30/20 05:09 Dose: 5 mg Documented by: Pantoprazole Sodium (Pantoprazole 40 Mg Tab) 40 mg PO BID [facility] Stop: 11/26/20 08:59 Last Admin: 10/30/20 08:37 Dose: Not Given Documented by:
[2020-10-30] MEDS ORDERED: INDOMETHACIN 50 MG SUPP PR ONE (11:33)
[2020-10-30] MEDS ORDERED: KETAMINE 50 MG/5 ML SYRINGE ONE (11:34)
[2020-10-30] MEDS ORDERED: PROPOFOL IV EMULSION 10 MG/ML 20 ML VIAL IV ONE (11:34)
[2020-10-30] MEDS ORDERED: MIDAZOLAM HCL 1 MG/ML 2ML VIAL ONE (11:34)
[2020-10-30] MEDS ORDERED: ATROPINE SULFATE 0.1 MG/ML 10ML SYR IV PRN (11:38)
[2020-10-30] MEDS ORDERED: LABETALOL HCL IV 5 MG/ML 20ML IV PRN (11:38)
[2020-10-30] MEDS ORDERED: fentaNYL citrate 100 MCG/2 ML VIAL IV PRN (11:38)
[2020-10-30] MEDS ORDERED: ONDANSETRON INJ 2 MG/ML 2 ML VIAL IV PRN (11:38)
--- NOTE | 2020-10-30 12:28 | Post Operative Brief Note ---
Immediate Post Op Note v1 Date of Surgery October 30, 2020 Pre & Post Diagnosis Operation Date: 10/30/20 12:40 Pre-Op Diagnosis: Abdominal Pain Post-Op Diagnosis: Esophageal Diverticulum I identified the patient and participated in the time-out.: Yes Procedure Operation Date: 10/30/20 12:40 Actual Procedures p Esophagogastroduodenoscopy, Endoscopic Ultrasonography Upper(Not Applicable) - Johnson Winston DO Surgeon Johnson Winston DO Drafter Electrical none Estimated Blood Loss 0 Findings Consistent with Post-Op Diagnosis
--- NOTE | 2020-10-30 12:37 | GI REPORT ---
Patient Name: Martinez Joy Procedure Date: 10/30/2020 12:00 PM Date of : 1950 Admit Type: Inpatient Age: 69 Gender: Male Attending MD: Johnson Winston DO Procedure: Upper GI endoscopy Providers: Johnson Winston DO Referring MD: Neema Mcdermott Indications: Epigastric abdominal pain Medicines: Monitored Anesthesia Care Complications: No immediate complications. Estimated blood loss: Minimal. Estimated Blood Loss: Estimated blood loss was minimal. Procedure: Pre-Anesthesia Assessment: - Prior to the procedure, a History and Physical was performed, and patient medications, allergies and sensitivities were reviewed. The patient's tolerance of previous anesthesia was reviewed. - The risks and benefits of the procedure and the sedation options and risks were discussed with the patient. All questions were answered and informed consent was obtained. - Patient identification and proposed procedure were verified prior to the procedure by the physician, the nurse and the financial services manager. The procedure was verified in the procedure room. - Pre-procedure physical examination revealed no contraindications to sedation. - ASA Grade Assessment: III - A patient with severe systemic disease. - After reviewing the risks and benefits, the patient was deemed in satisfactory condition to undergo the procedure. - The anesthesia plan was to use monitored anesthesia care (MAC). - Immediately prior to administration of medications, the patient was re-assessed for adequacy to receive sedatives. - The heart rate, respiratory rate, oxygen saturations, blood pressure, adequacy of pulmonary ventilation, and response to care were monitored throughout the procedure. - The physical status of the patient was re-assessed after the procedure. After obtaining informed consent, the endoscope was passed under direct vision. Throughout the procedure, the patient's blood pressure, pulse, and oxygen saturations were monitored continuously. The Endoscope was introduced through the mouth, and advanced to the third part of duodenum. The upper GI endoscopy was accomplished without difficulty. The patient tolerated the procedure well. Findings: Esophagitis with no bleeding was found in the entire esophagus. Biopsies were taken with a cold forceps for histology. The pathology specimen was placed into Bottle B. Estimated blood loss was minimal. A non-bleeding diverticulum with a large opening and no stigmata of recent bleeding was found in the middle third of the esophagus. An ERCP wire was placed to aid in passage of the echoendoscope. Diffuse mild inflammation characterized by congestion (edema), erythema and granularity was found in the gastric antrum. Biopsies were taken with a cold forceps for histology. The pathology specimen was placed into Bottle A. Estimated blood loss was minimal. The gastric fundus and gastric body were normal. The examined duodenum was normal. Impression: - Candidiasis esophagitis. Biopsied. - Diverticulum in the middle third of the esophagus. - Gastritis. Biopsied. - Normal gastric fundus and gastric body. - Normal examined duodenum. Recommendation: - Perform an upper endoscopic ultrasound (UEUS) today. - Diflucan (fluconazole) 100 mg PO daily for 10 days. Johnson Winston D.O. Johnson Winston, 10/30/2020 12:37:26 PM This report has been signed electronically. Note Initiated On: 10/30/2020 12:00 PM Number of Addenda: 0 I attest to the content of the Intraoperative Record and orders documented therein, exceptions below {[id number]}
--- NOTE | 2020-10-30 12:39 | Anesthesiology Progress Note ---
Date of Service October 30, 2020 Anesthesia Post Procedure Vital Signs Vital Signs: Temp Pulse Pulse Resp BP Pulse Ox 10/30/20 12:35 36.3 C L 67 14 116/67 95 10/30/20 12:26 36.0 C L 73 14 137/71 95 10/30/20 11:12 36.9 C 72 18 163/96 H 97 10/30/20 07:27 36.4 C L 66 16 129/70 94 10/29/20 15:48 36.6 C 80 18 168/73 H 96 Pain Intensity Bilateral Upper Abdomen: Pain Intensity: 4 Transfer of Care Handoff Completed per policy Notes Mental Status: alert / awake / arousable Patient Amnestic to Procedure: Yes Nausea / Vomiting: adequately controlled Pain: adequately controlled Airway Patency, RR, SpO2: stable & adequate BP & HR: stable & adequate Hydration State: stable & adequate Anesthetic Complications: no major complications apparent
--- NOTE | 2020-10-30 12:42 | GI REPORT ---
Patient Name: Martinez Joy Procedure Date: 10/30/2020 12:08 PM Date of : 1950 Admit Type: Inpatient Age: 69 Gender: Male Attending MD: Johnson Winston DO Procedure: Upper EUS Providers: Johnson Winston DO Referring MD: Neema Mcdermott Indications: Suspected choledocholithiasis, Epigastric abdominal pain, Abdominal pain in the right upper quadrant Medicines: Monitored Anesthesia Care Complications: No immediate complications. Estimated blood loss: Minimal. Estimated Blood Loss: Estimated blood loss was minimal. Procedure: Pre-Anesthesia Assessment: - Prior to the procedure, a History and Physical was performed, and patient medications, allergies and sensitivities were reviewed. The patient's tolerance of previous anesthesia was reviewed. - The risks and benefits of the procedure and the sedation options and risks were discussed with the patient. All questions were answered and informed consent was obtained. - Patient identification and proposed procedure were verified prior to the procedure by the physician, the nurse and the gas meter repairer. The procedure was verified in the procedure room. - Pre-procedure physical examination revealed no contraindications to sedation. - ASA Grade Assessment: III - A patient with severe systemic disease. - After reviewing the risks and benefits, the patient was deemed in satisfactory condition to undergo the procedure. - The anesthesia plan was to use monitored anesthesia care (MAC). - Immediately prior to administration of medications, the patient was re-assessed for adequacy to receive sedatives. - The heart rate, respiratory rate, oxygen saturations, blood pressure, adequacy of pulmonary ventilation, and response to care were monitored throughout the procedure. - The physical status of the patient was re-assessed after the procedure. After obtaining informed consent, the endoscope was passed under direct vision. Throughout the procedure, the patient's blood pressure, pulse, and oxygen saturations were monitored continuously. The Endosonoscope was introduced through the mouth, and advanced to the second part of duodenum. The upper EUS was accomplished without difficulty. The patient tolerated the procedure well. Findings: ENDOSONOGRAPHIC FINDING: : Periampullary diverticulum noted making evalaution of the distal CBD difficult Evidence of a previous cholecystectomy was identified endosonographically. There was dilation in the common bile duct which measured up to 9 mm, no stone or sludge material was seen. Air was noted in the duct making visualization difficult. There was abnormal echogenicity in the visualized portion of the liver. This area was hyperechoic. There was no sign of significant endosonographic abnormality in the entire pancreas. No masses, no cysts, no calcifications. No lymphadenopathy seen. Impression: - Evidence of a cholecystectomy. - There was dilation in the common bile duct which measured up to 9 mm. - There was abnormal echogenicity in the visualized portion of the liver. This was hyperechoic. Tissue has not been obtained. However, the endosonographic appearance is consistent with fatty infiltration. - There was no sign of significant pathology in the entire pancreas. - No specimens collected. Recommendation: - [facility]. - Full liquid diet today. - Observe patient's clinical course. Symptoms may be related to the large esophageal diverticulum. Johnson Winston D.O. Johnson Winston, 10/30/2020 12:41:53 PM This report has been signed electronically. Note Initiated On: 10/30/2020 12:08 PM Number of Addenda: 0 I attest to the content of the Intraoperative Record and orders documented therein, exceptions below {[id number]}
--- NOTE | 2020-10-30 13:14 | Communication Note ---
Date of Service: October 30, 2020 The patient underwent upper endoscopy and endoscopic ultrasound this afternoon. The upper endoscopy was notable for a large diverticulum in the midportion of the esophagus. In addition there was evidence of Imelda esophagitis. An endoscopic ultrasound was performed notable for a 9 mm common bile duct without evidence of obvious stone or sludge material. The examination is somewhat limited given his prior sphincterotomy and the duodenal diverticulum. Recommendations Advance diet to a full liquid diet then mechanical soft afterwards 10-day course of Diflucan for Imelda esophagitis Patient should follow with his surgeon to discuss diverticulectomy
[2020-10-30] MEDS: SODIUM CHLORIDE 0.9% 1000ML 1,000 ML IV SCH (13:26)
[2020-10-30] MEDS ORDERED: Nursing to Pharmacy Communication SCH (15:30)
[2020-10-30] MEDS ORDERED: INSULIN ASPART 100 UNITS/ML 3 ML PEN SC SCH (16:30)
[2020-10-30] MEDS ORDERED: FLUCONAZOLE 100 MG TAB PO SCH (21:00)
--- NOTE | 2020-10-31 08:33 | Discharge Summary ---
Date of Service October 31, 2020 Admission HPI Per Admitting Provider History obtained from patient, family, and records. Medical history significant for presumptive CAD, hx TIA, hx of thoracoabdominal aortic aneurysm status post surgery, HTN, IgG4 related disease/vasculitis as per records, DM 2 diet-controlled, CRI (baseline creatinine 1.9), history choledocholithiasis, ISABELLE CPAP intolerance, mood disorder, past tobacco abuse. Last confinement January 2020 for sepsis secondary to ascending cholangitis secondary to choledocholithiasis. EGD showed esophageal diverticulum. Patient underwent ERCP, subsequent stone extraction by biliary sphincterotomy and subsequent CBD biliary stent placement. CBD stents subsequently removed on follow-up ERCP done outpatient 2 months later. 6 days history of mid back pain which later moved to upper abdominal discomfort without other symptoms. No fever, no chills. No chest pain, no S OB, no cough, no diarrhea/dysuria symptoms. Denies black/bloody stools. Somewhat similar to stone attack from last year as per patient. One dose of ibuprofen taken at home. Patient seen at PCPs office yesterday. Concern for recurrent CBD stone. Outpatient blood work showed WBC of 12, total bilirubin was elevated at 1.8. PCP to contact patient's GI specialist. Patient instructed to go to ER if with fever or worsening symptoms. At home, patient noted worsening discomfort along with low-grade fever, 100.2. Patient brought to ER by . Medical History as above Surgical History : cystoscopy, enterostomy, vascular procedure, cholecystectomy, skin cancer surgery, lung abscess drainage, thoracal abdominal aneurysm repair Family History : Colon cancer Personal/Social history : Past tobacco abuse, occasional EtOH intake, retired contractor Admission Exam Per Admitting Provider Physical Exam: GENERAL: Slightly uncomfortable, pleasant, mild hearing impairment, no respiratory distress SKIN: Normal color, warm HEENT: [place] palpebral conjunctivae, no ptosis, dry buccal mucosa NECK : Supple, no tenderness CHEST : CTA, no tenderness HEART : RRR, no obvious murmurs ABDOMEN: Some distention, epigastric tenderness EXTREMITIES : No LE swelling/tenderness, no other conspicuous deformities noted NEUROLOGIC : Coherent, no facial asymmetry, mild hearing impairment, no other gross focality Principal Diagnosis Upper abdominal pain, abnormal LFT status post endoscopy/EUS, candidiasis esophagitis, CAD, esophageal diverticulum Discharge Exam Constitutional well developed, well nourished, + ill appearing and + obese Eyes PERRL, conjunctivae normal, anicteric sclerae ENMT external ear and nose normal, oropharynx normal Neck trachea midline, no thyromegaly Respiratory no respiratory distress Auscultation: lungs clear to auscultation bilaterally Cardiovascular Rate/Rhythm: regular rate and regular rhythm Heart Sounds: no murmur Extremities: no edema Gastrointestinal (Abdomen) Inspection/Auscultation: + abdomen distended (Mildly distended) and normal bowel sounds Percussion/Palpation: + abdomen tender (Minimally tender in the epigastrium) and abdomen soft Neurologic PERRL, EOMI, accommodation nl, no face palsy, no dysarthria Psychiatric A+Ox3, euthymic affect Lymphatic no cervical or axillary lymphadenopathy Discharge Data Allergies Allergy/AdvReac Type Severity Reaction Status Date / Time clotrimazole AdvReac Mild Rash Verified 10/30/20 11:24 tramadol AdvReac Unknown HIVES Verified 10/30/20 11:24 Consultations 10/26/20 23:36 ED Decision to Admit Stat 10/27/20 02:01 Consult Gastroenterology Routine 10/27/20 09:12 Consult Gastroenterology Routine Procedures Performed Operation Date: 10/30/20 12:40 Actual Procedures p Endoscopic Ultrasonography Upper(Not Applicable) - DO laya Bills Esophagogastroduodenoscopy(Not Applicable) - Johnson Winston DO Ordered Studies 10/26/20 20:59 CT abd pelvis wo con Urgent 10/27/20 10:19 MR MRCP Urgent 10/30/20 11:58 US upper EUS PACS images Routine Hospital Course (1) Upper abdominal pain: Differentials include : Distal esophagitis on CT initial read Rule out recurrent bile duct stone with history of cholangitis, choledocholithiasis Elevated bilirubin Appreciate GI input and recommendation MRCP is unremarkable 1. The gallbladder is surgically absent. 2. There is no evidence of choledocholithiasis. 3. The liver is cirrhotic and heterogeneous. 4. Trace pleural effusions. 5. There is a moderate hiatal hernia versus dilated distal esophagus which is thick-walled and filled with debris. 6. Additional chronic findings as above. Abdominal pain seems to be improving with analgesics Bilirubin seems to be elevated at 2.6 today Complains of more abdominal pain with nausea but no vomiting Bilirubin is slightly improved but alkaline phos is a little worse We will have EGD/EUS today Likely discharge following the procedure if remains stable Other medical conditions as below remain stable- History of presumptive CAD, hx TIA, hx of thoracoabdominal aortic aneurysm status post surgery HTN IgG4 related disease/vasculitis as per records, currently in remission DM 2 diet-controlled CKD, creatinine at baseline Mood disorder Past tobacco abuse DVT prophylaxis. Heparin subcu Full code Discussed with the Total Time Total Time Spent Total Time Spent (In Minutes): 35 minutes Total Time Includes: Examination of the Patient, Discharge Planning, Medication Reconciliation and Communication With Other Providers Discharge Plan Discharge Items Patient Disposition: Home - Self-Care Reason For Visit: ABD PAIN Discharge Diagnosis: Upper abdominal pain, abnormal LFT status post endoscopy/EUS, candidiasis esophagitis, CAD, esophageal diverticulum Condition on Discharge: Good Activity: Resume your previous activity Non-emergency contact: Primary Care Provider Call non-emergency contact if: you have any medication questions and your symptoms worsen Follow-up/Referrals: Martín Hernandez MD [Outside Practitioners] - (Date & Time 11/24/2020 10:45 AM Provider [facility] PLEASE NOTE THAT THIS IS A TELEPHONE APPOINTMENT. YOUR PROVIDER WILL CALL YOU AT THE APPOINTMENT TIME. IF YOU HAVE ANY QUESTIONS REGARDING THIS APPOINTMENT, PLEASE CALL ) Isidoro Brown MD [Primary Care Provider] - (Date & Time 11/04/2020 11:00 AM Provider Isidoro Brown MD Department [facility] ) Diet: Carb Consistent or DM2 and Heart Healthy Addtl Attending Provider Instructions: Please finish the course of Diflucan Keep appointment with your primary care doctor and Dr. Hernandez Pending Studies at Discharge: Yes Studies:: Biopsy result Stand-Alone Forms: My [facility] 1Rebel, Opioid Pain Management, Smoking Cessation Medications and DC Order Prescriptions: New fluconazole 100 mg Tablet 100 mg PO BID Qty: 20 RF: 0 Continued clonazepam 1 mg tablet 1 mg PO HS PRN (Reason: sleep) Qty: 30 RF: 5 metoprolol succinate 25 mg tablet extended release 24 hr 37.5 mg PO BID Qty: 270 RF: 3 ergocalciferol (vitamin D2) 1,250 mcg (50,000 unit) capsule 50,000 unit PO MONTHLY Qty: 12 RF: 0 hydroxyzine HCl 10 mg tablet 10 mg PO ONCE PRN (Reason: Itching) RF: 0 aspirin 81 mg Tablet,Delayed Release (Dr/Ec) 81 mg PO HS RF: 0 ibuprofen 200 mg Tablet 400 mg PO Q6H PRN (Reason: Pain) RF: 0 omeprazole 20 mg capsule,delayed release(DR/EC) 20 mg PO QAM RF: 0 oxycodone 5 mg Tablet 5 mg PO Q8 PRN (Reason: Pain) RF: 0 docusate sodium 100 mg Tablet 100 mg PO DAILY PRN (Reason: Constipation) RF: 0 atorvastatin 10 mg Tablet 10 mg PO HS RF: 0 Discharge Orders: Discharge Order (Routine); Ordered 10/30/20 Ordered By: Neema Mcdermott Admission Data Admit Date/Time: 10/27/20 18:16 Attending Provider: Neema Mcdermott Admit Provider: Slava Caputo Primary Care Provider: Isidoro Brown Other Providers: Lizeth Bowie ; Tomasz Thompson ; Slava Caputo ; Jeremy Nagel ; Siri Cherry ; Judy Barnes ; Risa Beck ; Maxwell Michaels ; Johnson Winston ; Bairon Diaz ; Jace Hnut ; Sadie Esteban ; An Zuluaga ; Tiera Dela Cruz ; Phyllis Marquez Other Interventions: Discharge Summary Assessment (RN) Last Done: 10/30/20 16:40
--- NOTE | 2020-11-09 11:37 | Coding Query ---
CODING QUERY To promote full compliance with coding requirements relating to patient care, provider participation is requested in all cases of flare man uncertainty. Please assist us with the question(s) below: Coding Question(s): Patient admitted with abdominal pain . EGD with esophageal and stomach biopsies done. Please document, if known or suspected, the etiology of patient's abdominal pain. Thank you. Real Purcell [facility] Physician's Response(s): Clearly mentioned undr differential diagnosis -Distal esophagitis as the cause o abdominal pain Principal Diagnosis: "that condition established after study, to be chiefly responsible for occasioning the admission of the patient to the hospital for care." Co-Existing Principal Diagnosis: "when two or more diagnoses equally meet the criteria for principal diagnosis as determined by the circumstances of admission, diagnostic work up, and/or therapy provided, and the Alphabetic Index, Tabular List, or another coding guideline does not provide sequencing direction, any one of the diagnoses may be sequenced first." "When the physician has documented what appears to be a current diagnosis in the body of the record, but has not included the diagnosis in the final diagnostic statement, the physician should be asked whether the diagnosis should be added." (Source Coding Clinic 2 QTR90. p3-4) MTDD
== END 2020-10-30 17:17 | disposition home or self-care (01) | DRG 369 ==
LOC: 2N 19:45 → ED 19:45 → 2N 10-27 01:39 → SUATTDRO 10-27 18:16 → 3E 10-28 13:25